=== PATIENT | male | born 1950 | race Caucasian/White ===

== ENCOUNTER 2018-05-19 20:08 | Inpatient (IN) | payer OTHER, MEDICARE ==
[~2018-05-19] VITALS: Ht 185.4 cm; Wt 92.3 kg
[~2018-05-19 20:08] MED LIST: ALPHA LIPOIC A200 MG PO; AMBIEN 10MG10 MG PO; AMLODIPINE BESYL5 M1 PO; ASPIRIN EC81 M1 PO; ATORVASTATIN CA20 MG PO; CO Q-1050 MG PO; FUROSEMIDE20 MG PO; GLYBURIDE-METF1 EACH PO; LOVAZA1 GM PO; MUCUS RELIEF400 MG PO; PRISTIQ100 MG PO; PROAIR HFA0.09 MG/Ac INH; QUINAPRIL HCL20 MG PO; SYMBICORT 160/41 PUF INH; TRILIPIX 135 M135 MG PO; VITAMIN D50000 IU PO; ZYPREXA10 MG PO; [UNRECOGNIZED DRUG - OTHER] PO; [UNRECOGNIZED DRUG - OTHER] PO
--- NOTE | 2018-05-19 20:31 | ED SKIN/ALLERGY COMPLAINT ---
History of Present Illness General Chief Complaint: General Adult Stated Complaint: "BOTH FEET HAVE INFECTIONS" Source: patient, family, old records Exam Limitations: intoxication Vital Signs & Intake/Output Vital Signs & Intake/Output Vital Signs Date Time Temp Pulse Resp B/P B/P Pulse O2 O2 Flow FiO2 Mean Ox Delivery Rate 05/19 2225 98.1 86 17 139/91 97 Room Air 05/19 2047 97.9 74 18 143/78 97 Room Air Allergies Coded Allergies: STATINS (MYALGIAS 08/21/17) melatonin (NIGHTMARES 08/21/17) varenicline (From CHANTIX) (NIGHTMARES 08/21/17) Reconcile Medications Amlodipine (Norvasc) 2.5 MG TABLET 1 TAB PO DAILY BP (Reported) Aspirin (Ecotrin*) 81 MG TABLET.DR 1 TAB PO DAILY HEART HEALTH (Reported) Glyburide/Metformin HCl (Glyburide-Metformin 5-500 MG) 5 MG-500 MG TABLET 1 TAB PO BID DM (Reported) Olmesartan Medoxomil (Benicar) (Unknown Strength) TABLET (Unknown Dose) PO DAILY BP (Reported) Triage Note: 67M WITH BILATERAL CELLULITIS TO FEET R>L WITH SEROSANGUINOUS DRAINAGE. WAS ON KEFLEX 500MG QID FOR 10 DAYS AND STATES THE INFECTION IS WORSENING. WAS TREATED AT [facility]. AFEBRILE. Triage Nurses Notes Reviewed? yes Onset: Gradual Duration: getting worse Timing: recent history Severity: moderate Severity Numbers: 5 HPI: Patient is a 67-year-old male with a past medical history of type 2 diabetes, schizoaffective disorder, history of Suboxone therapy after opiate dependency, COPD, and respiratory failure due to benzodiazepine overdose in which he has unknown history of bilateral foot open ulcers where he was evaluated last week by [facility] emergency room was prescribed Keflex where he presents to [place] emergency room stating that his redness and warmth have not improved. Patient denies any fever chills. Patient does admit to drinking ALCOHOL prior to arrival (Nino Martin) Past History Travel History Traveled to [place] past 21 day No Medical History Any Pertinent Medical History? see below for history Neurological: NONE EENT: NONE Cardiovascular: hypertension Respiratory: COPD, obstructive sleep apnea Gastrointestinal: NONE Hepatic: NONE Renal: renal mass Musculoskeletal: NONE Psychiatric: bipolar disease, depression, schizophrenia Endocrine: diabetes Cancer(s): ?MASS IN R KIDNEY History of MRSA: No History of VRE: No History of CDIFF: No Surgical History Surgical History: non-contributory Psychosocial History Who do you live with Patient/Self Services at Home None What is your primary language Slovenian Tobacco Use: Current Daily Use Daily Tobacco Use Amount/Type: Smokeless tobacco daily ETOH Use: alcoholic Illicit Drug Use: denies illicit drug use Family History Family History, If Any: GRANDFATHER FH: colon cancer Hx Contributory? No (Nino Martin) Review of Systems Review of Systems Constitutional: Reports: no symptoms. EENTM: Reports: no symptoms. Respiratory: Reports: no symptoms. Cardiovascular: Reports: no symptoms. GI: Reports: no symptoms. Genitourinary: Reports: no symptoms. Musculoskeletal: Reports: see HPI. Skin: Reports: see HPI. Neurological/Psychological: Reports: no symptoms. Hematologic/Endocrine: Reports: no symptoms. Immunologic/Allergic: Reports: no symptoms. All Other Systems: Reviewed and Negative (Nino Martin) Physical Exam Physical Exam General Appearance: no apparent distress, intoxicated Head: atraumatic Eyes: Bilateral: normal appearance. Ears, Nose, Throat: hearing grossly normal Neck: normal inspection Respiratory: no respiratory distress Cardiovascular: regular rate/rhythm Gastrointestinal: normal bowel sounds, non-tender Neurologic/Psych: no motor/sensory deficits, oriented x 3 Comments: Noted plantar aspect of the lateral FEET near the metatarsal phalangeal region bilateral 7 cm open ulcer with surrounding erythema warmth No active purulent discharge Decreased dermatome sensation Pedal pulses +2 (Nino Martin) Progress Differential Diagnosis: abscess/cellulitis, contact dermatitis, drug reaction Plan of Care: Orders Procedure Date/time Status LACTIC ACID 05/19 2357 Active ETHANOL 05/19 2105 Complete EKG 05/19 2058 Active BLOOD CULTURE 05/19 2057 Active LACTIC ACID 05/19 2057 Complete COMPREHENSIVE METABOLIC PANEL 05/19 2057 Complete CBC WITHOUT DIFFERENTIAL 05/19 2057 Complete Laboratory Tests 05/19/182104: Anion Gap 17 H, Estimated GFR > 60, BUN/Creatinine Ratio 10.0, Glucose 154 H, Lactic Acid 2.4 H, Calcium 9.6, Total Bilirubin 0.5, AST 17, ALT 28, Alkaline Phosphatase 86, Total Protein 7.8, Albumin 4.6, Globulin 3.2, Albumin/Globulin Ratio 1.4, CBC w Diff NO MAN DIFF REQ, RBC 4.09 L, MCV 93.2, MCH 30.3, MCHC 32.6 L, RDW 13.5, MPV 7.5, Gran % 70.2, Lymphocytes % 22.8, Monocytes % 5.3, Eosinophils % 1.4, Basophils % 0.3, Absolute Granulocytes 6.4, Absolute Lymphocytes 2.1, Absolute Monocytes 0.5, Absolute Eosinophils 0.1, Absolute Basophils 0, Serum Alcohol 200.0 05/19/182058: Serum Alcohol Cancelled Microbiology 05/19 2117 BLOOD: Blood Culture - RECD 05/19 2105 BLOOD: Blood Culture - RECD Differential diagnoses include Diabetic foot sepsis osteomyelitis and peripheral neuropathy No concerns of sepsis or osteomyelitis patient has failed outpatient treatment with Keflex prior to arrival patient has concerning symptoms of diabetic open ulcer of his feet with surrounding cellulitis IV antibiotics were administered Discussed admission with patient patient was also aware of his alcohol level Diagnostic Imaging: Viewed by Me: Radiology Read. Radiology Impression: no acute abnormality Initial ED EKG: normal intervals, normal p-waves, 77 bpm,nsr Comments: PATIENT: BUD HUNT PRESENT AGE: 67 PATIENT ACCOUNT NO: [id number] : 51 LOCATION: [facility] ORDERING PHYSICIAN: Nino REYES SERVICE DATE: 05/19/18 EXAM TYPE: RAD - XRY-FOOT COMPLETE, LEFT; XRY-FOOT COMPLETE, R EXAMINATION: BILATERAL FEET 3 VIEWS CLINICAL INFORMATION: Open ulcer. Concern for osteomyelitis. COMPARISON: None. TECHNIQUE: AP, lateral, oblique views of each foot were obtained. FINDINGS: There are no fractures. There is moderate degenerative change at the first MTP joints bilaterally. There is soft tissue swelling overlying the left fifth MCP joint. There is no significant soft tissue swelling. There is a small left-sided plantar surface calcaneal spur. There is no ankle joint effusion. There are no areas of acute bony destruction suspected. IMPRESSION: No acute bony destruction demonstrable. Soft tissue swelling about the fifth digit on the left as stated above. Chronic changes as stated above. DICTATED BY: Justin Kiser MD DATE/TIME DICTATED:05/19/182148 INSTRUMENTATION TECHNICIAN:SALOMON DATE/TIME TRANSCRIBED:05/19/182148 CONFIDENTIAL, DO NOT COPY WITHOUT APPROPRIATE AUTHORIZATION. <Electronically signed in Other Vendor System> SIGNED BY: Justin Kiser MD 05/19/182157 (Nino Martin) Departure Departure Disposition: STILL A PATIENT Condition: Stable Clinical Impression Primary Impression: Cellulitis of both feet Secondary Impressions: Alcohol abuse, Neuropathic diabetic ulcer of foot Referrals: Missy JOHNSON,Mildred Waite (PCP/Family) Departure Forms: Customer Survey General Discharge Information Admission Note Spoke With: Kyle Liz MD Documentation of Exam: Documentation of any treatments & extenuating circumstances including Concerns Regarding Discharge (functional status, medication knowledge or non-compliance, living conditions, etc.) that warrant an admission rather than observation: [ Patient has fell outpatient treatment with Keflex prior to arrival and has concerns of worsening cellulitis, patient requires wound management IV antibiotics podiatry consultation] (Nino Martin) PA/ASSISTANT GOLF COURSE SUPERINTENDENT Co-Sign Statement Statement: ED Attending supervision documentation- [X] I saw and evaluated the patient. I have also reviewed all the pertinent lab results and diagnostic results. I agree with the findings and the plan of care as documented in the PA's/ASSISTANT GOLF COURSE SUPERINTENDENT's documentation. Pt presents for eval of redness of foot. exam reveals redness and warmth in association with diabetic foot ulcers. [] I have reviewed the ED Record and agree with the PA's/ASSISTANT GOLF COURSE SUPERINTENDENT's documentation. [] Additions or exceptions (if any) to the PAs/ASSISTANT GOLF COURSE SUPERINTENDENT's note and plan are summarized below: [] (Tahira JOHNSON,Sam Herman)
[2018-05-19 21:27] LABS: ABSOLUTE BASOPHIL COUNT 0 /CUMM (0.0-0.2); ABSOLUTE EOSINOPHIL COUNT 0.1 /CUMM (0.0-0.7); ABSOLUTE GRANULOCYTE CT 6.4 /CUMM (1.4-6.5); ABSOLUTE LYMPH COUNT 2.1 /CUMM (1.2-3.4); ABSOLUTE MONOCYTE COUNT 0.5 /CUMM (0.10-0.60); BASOPHIL % 0.3 % (0.0-2.0); EOSINOPHIL % 1.4 % (0-5); GRANULOCYTE % 70.2 % (42.2-75.2); HEMATOCRIT 38.1 % (42-52); MEAN CORPUSCULAR HGB 30.3 PG (27.0-31.0); MEAN CORPUSCULAR HGB CONC 32.6 G/DL (33.0-37.0); MEAN CORPUSCULAR VOLUME 93.2 FL (80.0-94.0); MEAN PLATELET VOLUME 7.5 FL (7.4-10.4); PLATELET COUNT 308 /CUMM (130-400); RBC DISTRIBUTION WIDTH 13.5 % (11.5-14.5); RED BLOOD CELL CT 4.09 /CUMM (4.70-6.10); WHITE BLOOD CELL COUNT 9.2 /CUMM (4.8-10.8)
[2018-05-19] MEDS ORDERED: NORVASC2.5 M1 PO (21:30)
[2018-05-19] MEDS ORDERED: BENICAR20 M1 PO (21:33)
--- NOTE | 2018-05-19 21:58 | RADIOLOGY REPORT ---
EXAMINATION: BILATERAL FEET 3 VIEWS CLINICAL INFORMATION: Open ulcer. Concern for osteomyelitis. COMPARISON: None. TECHNIQUE: AP, lateral, oblique views of each foot were obtained. FINDINGS: There are no fractures. There is moderate degenerative change at the first MTP joints bilaterally. There is soft tissue swelling overlying the left fifth MCP joint. There is no significant soft tissue swelling. There is a small left-sided plantar surface calcaneal spur. There is no ankle joint effusion. There are no areas of acute bony destruction suspected. IMPRESSION: No acute bony destruction demonstrable. Soft tissue swelling about the fifth digit on the left as stated above. Chronic changes as stated above.
--- NOTE | 2018-05-19 23:42 | History & Physical ---
RanjithConsuelo 05/19/18 8191: General Information and HPI MD Statement: I have seen and personally examined BUD HUNT and documented this H&P. The patient is a 67 year old M who presented with a patient stated chief complaint of []. Source of Information: patient, old records Exam Limitations: intoxication History of Present Illness: 67 yo gentleman with PMH of type 2 DM, hypertension, schizoaffectiive disorder, opiate dependancy and benzodiazepine overdose presents to the ER with not worsening B/L foot ulcers. He noticed the blisters 10 days ago and went to [facility] ER [facility] where[facility] was prescribed Keflex for 10 days. He says that he completed the course but his ulcers, espcially on the right foot has worsened since. He says he does not feel any pain and is able to walk comfortably. He does not report any fever, chills, nausea or vomiting. He had an appointement with his PCP today who informed him that he had high potasium and low Iron. He failed to elaborate further on that. He admits to having had 3 beers in the afternoon today. He states he drinks 3-5 beer every week but has never been admitted to the hospital for alcohol dependance. He denies consuming hard liquor. He was essentially alert, oriented and cooperative during evaluation. Allergies/Medications Allergies: Coded Allergies: STATINS (MYALGIAS 08/21/17) melatonin (NIGHTMARES 08/21/17) varenicline (From CHANTIX) (NIGHTMARES 08/21/17) Home Med list Amlodipine (Norvasc) 2.5 MG TABLET 1 TAB PO DAILY BP (Reported) Aspirin (Ecotrin*) 81 MG TABLET.DR 1 TAB PO DAILY HEART HEALTH (Reported) Augmentin (Augmentin 500-125 Tablet) 500 MG-125 MG TABLET 1 TAB PO BID cellulitis . Glyburide/Metformin HCl (Glyburide-Metformin 5-500 MG) 5 MG-500 MG TABLET 1 TAB PO BID DM (Reported) Olmesartan Medoxomil (Benicar) (Unknown Strength) TABLET (Unknown Dose) PO DAILY BP (Reported) Silver Sulfadiazine (Silvadene) 1 % CREAM..G. 1 JEANINE TOP DAILY diabetes ulcer apply to affected area(s). Past History Travel History Traveled to [place] past 21 day No Medical History Neurological: NONE, peripheral neuropathy EENT: NONE Cardiovascular: hypertension Respiratory: COPD, obstructive sleep apnea Gastrointestinal: NONE Hepatic: NONE Renal: renal mass Musculoskeletal: NONE Psychiatric: bipolar disease, depression, schizophrenia Endocrine: diabetes Cancer(s): ?MASS IN R KIDNEY History of MRSA: No History of VRE: No History of CDIFF: No Surgical History Surgical History: non-contributory Past Family/Social History Family History Relations & Conditions if any GRANDFATHER FH: colon cancer Psychosocial History Services at Home: None Primary Language: Kyrgyz Smoking Status: Former Smoker (quit 3 years ago) ETOH Use: alcoholic Illicit Drug Use: denies illicit drug use Review of Systems Review of Systems Constitutional: Reports: no symptoms. Denies: chills, fever, malaise, unexplained weight loss. EENTM: Reports: no symptoms. Denies: double vision, visual changes, icterus. Cardiovascular: Reports: no symptoms. Denies: chest pain, palpitations. Respiratory: Reports: no symptoms. Denies: cough, short of breath, sputum production, wheezing. GI: Reports: no symptoms. Denies: abdominal pain, bloating, diarrhea, nausea, vomiting. Genitourinary: Reports: no symptoms. Musculoskeletal: Reports: no symptoms. Skin: Reports: see HPI. Neurological/Psychological: Reports: no symptoms, see HPI, numbness. Denies: anxiety, emotional problems, paresthesia, tingling. Hematologic/Endocrine: Reports: no symptoms. Denies: bruising, bleeding. Exam & Diagnostic Data Last 24 Hrs of Vital Signs/I&O Vital Signs Date Time Temp Pulse Resp B/P B/P Pulse O2 O2 Flow FiO2 Mean Ox Delivery Rate 05/19 2225 98.1 86 17 139/91 97 Room Air 05/19 2047 97.9 74 18 143/78 97 Room Air Intake & Output 05/20 0800 05/20 0000 05/19 1600 Intake Total Output Total Balance Patient 195 lb Weight Physical Exam General Appearance Oriented X3, Cooperative, No Acute Distress Skin bilateral plantar foot ulcers, 5 cm on the right foot; 8cm on the left foot with surrounding erythema and warmth but no purulent discharge Skin Temp/Moisture Exam: Warm/Dry Sepsis Skin Exam (color): Flushed HEENT Atraumatic, PERRLA, EOMI, Mucous Membr. moist/pink Neck Supple Cardiovascular Regular Rate, Normal S1, Normal S2, No Murmurs Lungs Clear to Auscultation, Normal Air Movement Abdomen Normal Bowel Sounds, Soft, No Tenderness Neurological Normal Speech, Strength at 5/5 X4 Ext, near complete loss of senasation B/L feet. proprioception intact Extremities Normal Pulses Vascular dorsalis pedis 1+ on the R side Assessment/Plan Assessment: Here is a 67 yo gentleman with PMH of type 2 DM, hypertension, schizoaffecttive disorder, opiate dependance and BZD overdose presenst to the ED with history of non healing B/L plantar ulcers. He visted [facility] ER 10 days ago and has completed a 10 day course of Keflex with no relief. He denies, pain, fever, chills, nausea or vomitng. He admits to drinking 3 beers at 3.30 in the afternoon today. On examination, he was fairly alert, orientedx3 and was cooperative. His face was flushed and he had B/L conjunctival injection. On examination of his foot, he had 2 ulcers: 5cm on the R foot and 8 cm on the left foot with surrrounding warmth and eryrthema but no purulent discharge. He had B/ L pitting pedal edema. His neurologicsl foot exam was remarkable for B/L loss of sensation in the plantar feet. Proprioception was intact, however. We are admittig the patient to on account of the following reasons: 1. B/L Diabetic foot ulcers - 5cm ulcer on the R plantar foot and 8 cm ulcer on the R foot -Start iv antibiotics - Consult wound care - 2. Alcohol dependance -Pt admits to consuming 3 beers before coming ot the ER -Has mild anion gap (17) lactic acidosis on labs, -will monitor lactic acid levels - Monitor for symptoms of alcohol withdrawal 3. Type 2 DM with peripheral neuropathy -Blood glucose on admission 154 - will closely monitor blood sugar levels with Accucheck - Start insulin -Put the patient on diabetic diet DVT prophlylaxis code status: DNR/DNI As Ranked By This Provider Problem List: 1. Diabetes mellitus 2. Hypertension 3. Neuropathic diabetic ulcer of foot Core Measures/Misc (07/19) Acute Coronary Syndrome ACS Diagnosis: No Congestive Heart Failure Congestive Heart Failure Diagnosis No Cerebrovascular Accident CVA/TIA Diagnosis: No VTE (View Protocol) VTE Risk Factors Age>40 No Mechanical VTE Prophylaxis d/t N/A MechProphylax Ordered No VTE Pharm Prophylaxis d/t NA PharmProphylax ordered Sepsis (View protocol) Sepsis Present: No If YES complete Sepsis Event Note If YES complete Sepsis Event Note Roz Moreno 05/20/18 0008: Core Measures/Misc (07/19) Sepsis (View protocol) If YES complete Sepsis Event Note If YES complete Sepsis Event Note Resident Review Statement Resident Statement: examined this patient, discussed with internal combustion engine inspector, agreed with internal combustion engine inspector, reviewed images Other Findings: 67-year-old gentleman from home, former smoker, past medical history significant for [id number] type 2 diabetes mellitus complicated by peripheral neuropathy, schizoaffective disorder, history of substance abuse disorder, hypertension, came in because his PCP advised him to. Apparently he had bilateral foot ulcers that was seen at [facility] last week and was given a 10 day course of Keflex which he completed. However his ulcers have not improved. He also states that he drinks about 3-5 beers per week his last drink was 3:30 PM on day of admission. Denies that he had needed any hospitalization for detox in the past denies any IV drug use. On interview denies fever, chills , shortness of breath, chest pain, bowel or bladder symptoms. Vitals in ED were stable on examination bilateral conjunctival injection, decreased sensation to light touch up to above ankles bilaterally. Bilateral ulcers on plantar aspect of feet. right ulcer worse than left. Healthy granulation tissue noted with rolled edges no purulent discharge. Right dorsalis pedis fainter than left. Bilateral mild pitting edema up to merino. Rest of examination unremarkable. Labs CBC/BEP unremarkable, lactic acid elevated 2.4, alcohol level of 200, urine tox pending. X-ray foot shows soft tissue swelling. Problem list Bilateral chronic nonhealing ulcers failed outpatient treatment Gwx-[id number] diabetes mellitus with peripheral neuropathy Elevated alcohol level lactic acidosis Hypertension Plan Admit to general medicine floor, vitals per protocol We will continue with IV Unasyn, might need vascular imput (decrease left dorsalis pedis pulse) Trend lactic acid Wound consult in the morning We will hold his metformin, Accu-Cheks, insulin sliding scale, follow-up hemoglobin A1c We will place on Ciwa protocol Continue with Norvasc and alternative for his olmesartan (losartan) Diabetic diet DVT prophylaxis subcu Lovenox DNR/DNI Shalonda JOHNSONSuzannekelle 05/20/18 0205: Core Measures/Misc (07/19) Sepsis (View protocol) If YES complete Sepsis Event Note If YES complete Sepsis Event Note Attending MD Review Statement Attending Statement Attending MD Statement: examined this patient, discuss w/resident/PA/JACQUARD TWINE POLISHER OPERATOR, agreed w/resident/PA/JACQUARD TWINE POLISHER OPERATOR, reviewed EMR data (avail) Attending Assessment/Plan: 67M PMH schizoaffective disorder, COPD, diabetes with diabetic polyneuropathy sent in from PCP's office for worsening of bilateral foot and LE chronic non- healing ulcers. Patient has developed erythema and warmth surrounding the ulcers around 10 days ago, was placed on Cephalex with worsening of symptoms. Patient has diminished sensation to bilateral LE, multiple chronic non-healing ulcers with some surrounding erythema, no purulence or drainage. No fever, chills, n/v, WBC normal. Lactate 2.4. Patient was visibly intoxicated in ER, EtOH level 200. 1. Bilateral LE cellulitis 2. Type 2 diabetic foot ulcers 3. Diabetic polyneuropathy 4. Failure of outpatient treatment 5. Lactic acidosis 6. Alcohol intoxication Plan - Admit to general medicine - Start Unasyn - Wound care consult - IV hydration - Trend lactate to normal - Ativan PRN CIWA - Continue home medications - DVT PPx
--- NOTE | 2018-05-20 00:39 | Admission Certification ---
Admission Certification Certification Statement - As attending physician, I certify that at the time of - admission, based on clinical presentation, severity of - symptoms, need for further diagnostic testing and - therapeutic interventions, and risk of adverse outcomes - without in-hospital treatment, in my clinical assessment, - this patient requires an acute hospital stay for a minimum - of two nights or longer. I have also considered psychsocial - factors such as support system, advanced age, financial - issues, cognitive issues, and failed out-patient treatments, - past re-admission history, safety of patient, and lack of - compliance as applicable. Specific rationale supporting this admission is: LE ulcers with cellulitis failing outpatient therapy
[2018-05-20 01:04] VITALS: BP 120/62
[2018-05-20 06:00] VITALS: BP 156/91
--- NOTE | 2018-05-20 07:13 | PN- Housestaff ---
Samuel Billy 05/20/18 07: Subjective Follow-up For: B/l lower extremity ulcers / cellulitis Subjective: She is seen and examined at bedside, while wound nurse was performing excisional debridement. Patient states that he has not had any pain on his ulcers, however the right one has grown and that is what prompted him to seek treatment in the hospital. Patient was recently at [facility] 1 week prior, completed Keflex course without resolution. Patient denies any overt complaints. Patient continually asked when he will be discharged, and says that he feels fine. Patient denies fever/chills/night sweats/chest pain/abdominal pain/urinary symptoms/lower extremity edema. Review of Systems Constitutional: Reports: see HPI. Objective Last 24 Hrs of Vital Signs/I&O Vital Signs Date Time Temp Pulse Resp B/P B/P Pulse O2 O2 Flow FiO2 Mean Ox Delivery Rate 05/20 08 75 156/91 05/20 0820 75 156/91 05/20 0600 98.4 75 20 156/91 98 Room Air 05/20 0104 98.0 78 18 120/62 92 Room Air 05/19 2225 98.1 86 17 139/91 97 Room Air 05/19 2047 97.9 74 18 143/78 97 Room Air Intake & Output 05/20 1600 05/20 0800 05/20 0000 Intake Total 300 Output Total Balance 300 Intake, IV 60 Intake, Oral 240 Patient 203 lb 195 lb Weight Weight Bed scale Measurement Method Physical Exam General Appearance: Alert, Oriented X3, Cooperative, No Acute Distress Skin: b/l lower extremity ulcers plantar surface R>L R: 5.2 x 7.2 x 0.1 ; L: 3.2 x 2.9 x 0.1 Skin Temp/Moisture Exam: Warm/Dry Cardiovascular: Regular Rate, Normal S1, Normal S2 Lungs: Clear to Auscultation, Normal Air Movement Abdomen: Soft, No Tenderness Neurological: Normal Speech, Strength at 5/5 X4 Ext Extremities: No Edema Current Medications: Current Medications Sig/Satnam Start time Last Medication Dose Route Stop Time Status Admin Acetaminophen 650 MG Q6P PRN 05/20 0300 AC 05/20 PO 1246 Amlodipine Besylate 2.5 MG DAILY 05/20 0900 AC 05/20 PO 0820 Ampicillin Sodium/ 1,500 MG Q6H 05/27 0530 DC Sulbactam Sodium IV Sodium Chloride 100 ML Ampicillin Sodium/ 1,500 MG Q6H 05/20 0530 AC 05/20 Sulbactam Sodium IV 1246 Sodium Chloride 100 ML Ampicillin Sodium/ 0 .STK-MED ONE 05/19 2220 DC Sulbactam Sodium .ROUTE Ampicillin Sodium/ 0 .STK-MED ONE 05/19 2217 DC Sulbactam Sodium .ROUTE Ampicillin Sodium/ 1,500 MG ONCE ONE 05/19 2200 DC 05/19 Sulbactam Sodium IV 05/19 2229 2233 Sodium Chloride 100 ML Aspirin Buffered 81 MG DAILY 05/20 09 AC 05/20 PO 0820 Enoxaparin Sodium 40 MG DAILY 05/20 09 AC 05/20 SC 0819 Ibuprofen 400 MG .STK-MED ONE 05/20 0530 DC PO 05/20 0531 Ibuprofen 800 MG .STK-MED ONE 05/20 0525 DC PO 05/20 0526 Ibuprofen 800 MG ONCE ONE 05/20 0500 DC 05/20 PO 05/20 0501 0529 Insulin Aspart 0 TIDAC 05/20 08 05/20 SC 1246 Lorazepam 0 Q1P PRN 05/19 2345 AC IV Losartan Potassium 50 MG DAILY 05/20 09 AC 05/20 PO 0820 Sodium Chloride 1,000 ML BOLUS ONE 05/19 2300 DC 05/19 IV 05/19 2359 2319 Last 24 Hrs of Lab/Luis Miguel Results Last 24 Hrs of Labs/Mics: Laboratory Tests 05/20/18 0704: Lactic Acid 1.2 05/20/18 0016: Lactic Acid 2.2 H 05/19/18 2105: Anion Gap 17 H, Estimated GFR > 60, BUN/Creatinine Ratio 10.0, Glucose 154 H, Hemoglobin A1c 5.9 H, Lactic Acid 2.4 H, Calcium 9.6, Total Bilirubin 0.5, AST 17, ALT 28, Alkaline Phosphatase 86, Total Protein 7.8, Albumin 4.6, Globulin 3.2, Albumin/Globulin Ratio 1.4, CBC w Diff NO MAN DIFF REQ, RBC 4.09 L, MCV 93.2, MCH 30.3, MCHC 32.6 L, RDW 13.5, MPV 7.5, Gran % 70.2, Lymphocytes % 22.8 , Monocytes % 5.3, Eosinophils % 1.4, Basophils % 0.3, Absolute Granulocytes 6.4 , Absolute Lymphocytes 2.1, Absolute Monocytes 0.5, Absolute Eosinophils 0.1, Absolute Basophils 0, Serum Alcohol 200.0 05/19/182058: Serum Alcohol Cancelled Microbiology 05/19 2117 BLOOD: Blood Culture - RES 05/19 2105 BLOOD: Blood Culture - RES Assessment/Plan Assessment: 67M PMH schizoaffective disorder, COPD, diabetes with diabetic polyneuropathy sent in from PCP's office for worsening of bilateral foot and LE chronic non- healing ulcers. Patient has developed erythema and warmth surrounding the ulcers around 10 days ago, was placed on Keflex with worsening of symptoms. Pt being treated for b/l lower extremity cellulitis #B/L LE Cellulitis -On IV Unasyn, recieved one dose in the ED on 05/19, two doses today on May 20 at time of writing -Failed outpatient treatment from [facility] -Pt not complaining of pain at this time, will monitor clinical course -Without leukocytosis -F/u cultures #Type 2 Diabetic foot ulcers -Wound input appreciated. Watched wound nurse perform bedside debridement this morning on 05/20; please refer to note for further details. -Per wound note: CLEANSE LEN FEET WITH NS FB XEROFORM GAUZE AND KERLIX DAILY AND PRN - OFFLOADING AND ENCOURAGE MINIMAL WEIGHT BEARING PLEASE WITH HEEL TOUCH ONLY - PT WOULD BENEFIT FROM TOTAL CONTACT CASTING SYSTEM [facility] TO FACILITATE CLOSURE AN OUTPT -Podiatry consult #Lactic Acidosis - resolved -Lactate normalized, last was 1.2, down from 2.2 last night #Alcohol Intoxication -Patients alcohol level overnight was 200.0. Is on CIWA protocol PRN #COPD -Not on oxygen, stable #Diabetes -Has polyneuropathy -ISS -Accuchecks DVT PPX IV access DNR/DNI Heart healthy diet Problem List: 1. Diabetic neuropathy 2. Cellulitis of both feet Pain Ratin Pain Location: na Pain Goal: Pain 4 or less Pain Plan: [facility] Labs & Rationales: chaya KumarMeng 05/20/18 1115: Attending MD Review Statement Attending Statement Attending MD Statement: examined this patient, discuss w/resident/PA/TIRE MAN, agreed w/resident/PA/TIRE MAN, discussed with family, reviewed EMR data (avail), discussed with nursing, discussed with case mgmt, reviewed images, amended to note Attending Assessment/Plan: 67M PMH schizoaffective disorder, COPD, diabetes with diabetic polyneuropathy sent in from PCP's office for worsening of bilateral foot and LE chronic non- healing ulcers failed outpatient treatment. Patient found to have alcohol intoxciation DAISY 200 on admission. 1. Bilateral LE cellulitis c/w Unasyn, Wound care consulted and obtain podiatry consult. Follow up cultures. 2. Type 2 diabetic foot ulcers chronic non healing. 3. Diabetic uncontrolled with polyneuropathy 4. Alcohol intoxication CIWA and ativan prn, monitor for withdrawal. 5. COPD stable.
[2018-05-20 14:36] VITALS: BP 150/82
[2018-05-20 16:00] VITALS: BP 150/82
[2018-05-20 22:26] VITALS: BP 152/90
--- NOTE | 2018-05-21 07:13 | PN- Housestaff ---
See Addendum Subjective Follow-up For: B/L Diabetic Foot Ulcers, cellulitis Subjective: Patient seen and examined at bedside. Patient had no complaints overnight. States that he did not sleep too well. Patient was advised that he needs to keep off of his feet, heel touch weightbearing. Patient was also advised that he needs to see animation producer, potentially today. Patient did continue to ask about when he would be discharged. Patient denies fever/chills/night sweats/ chest pain/abdominal pain/urinary symptoms/lower extremity edema. No acute events overnight Review of Systems Constitutional: Reports: see HPI. Objective Last 24 Hrs of Vital Signs/I&O Vital Signs Date Time Temp Pulse Resp B/P B/P Pulse O2 O2 Flow FiO2 Mean Ox Delivery Rate 05/21 0715 97.1 60 20 140/84 94 05/20 2226 98.3 71 20 152/90 98 Room Air 05/20 1600 Room Air 05/20 1600 98.7 69 20 150/82 05/20 1436 98.7 69 20 150/82 96 Room Air Intake & Output 05/21 1600 05/21 0800 05/21 0000 Intake Total 200 640 Output Total Balance 200 640 Intake, IV 100 140 Intake, Oral 100 500 Physical Exam General Appearance: Alert, Oriented X3, Cooperative, No Acute Distress Skin: b/l diabetic foot ulcers, R dressing mild drainage noted, L dressing c/d/i Skin Temp/Moisture Exam: Warm/Dry Cardiovascular: Regular Rate, Normal S1, Normal S2 Lungs: Clear to Auscultation, Normal Air Movement Abdomen: Soft, No Tenderness Neurological: Normal Speech, Strength at 5/5 X4 Ext, diminished sensation b/l le 2/2 neuropathy Extremities: b/l diabetic foot ulcers; R ulcer clean skin margins small drainage , skin pink; L ulcer stable from admission, no drainage Current Medications: Current Medications Sig/Satnam Start time Last Medication Dose Route Stop Time Status Admin Acetaminophen 650 MG Q6P PRN 05/20 0300 AC 05/21 PO 0526 Amlodipine Besylate 2.5 MG DAILY 05/20 900 AC 05/20 PO 08 Ampicillin Sodium/ 1,500 MG Q6H 05/20 0530 AC 05/21 Sulbactam Sodium IV 0513 Sodium Chloride 100 ML Aspirin Buffered 81 MG DAILY 05/20 900 AC 05/20 PO 0820 Enoxaparin Sodium 40 MG DAILY 05/20 0900 AC 05/20 SC 0819 Insulin Aspart 0 TIDAC 05/20 0800 AC 05/20 SC 1759 Lorazepam 0 Q1P PRN 05/19 2345 AC IV Losartan Potassium 50 MG DAILY 05/20 0900 AC 05/20 PO 0820 Patient Medication 1 ED ONE ONE 05/20 1800 DC Teaching ED 05/20 1801 Assessment/Plan Assessment: 67M PMH schizoaffective disorder, COPD, diabetes with diabetic polyneuropathy sent in from PCP's office for worsening of bilateral foot and LE chronic non- healing ulcers. Patient has developed erythema and warmth surrounding the ulcers around 10 days ago, was placed on Keflex with worsening of symptoms. Pt being treated for b/l lower extremity cellulitis #B/L LE Cellulitis - resolving -On IV Unasyn, day 3; will switch to PO meds upon discharge -Failed outpatient treatment from [facility] -Pt not complaining of pain at this time, will monitor clinical course -Without leukocytosis -F/u cultures #Type 2 Diabetic foot ulcers -Wound input appreciated. Watched wound nurse perform bedside debridement this morning on 05/20; please refer to note for further details. -Per wound note: CLEANSE LEN FEET WITH NS FB XEROFORM GAUZE AND KERLIX DAILY AND PRN - OFFLOADING AND ENCOURAGE MINIMAL WEIGHT BEARING PLEASE WITH HEEL TOUCH ONLY - PT WOULD BENEFIT FROM TOTAL CONTACT [facility] TO FACILITATE CLOSURE AN OUTPT -Podiatry consult - will see patient today. If casting today will keep overnight pending reccs. If can cast outpatient will discharge today -R foot ulcer small amount of drainage; has not progressed. Margins clean, skin pink, no necrosis noted. L foot ulcer stable, no drainage noted. #Lactic Acidosis - resolved -Lactate normalized, last was 1.2, down from 2.2 last night #Alcohol Intoxication -Patients alcohol level overnight was 200.0. Is on CIWA protocol PRN. Scores overnight 0 #COPD -Not on oxygen, stable #Diabetes -Has polyneuropathy -ISS -Accuchecks DVT PPX IV access DNR/DNI Heart healthy diet Dispo - to home, potentially today pending podiatry consult Problem List: 1. Diabetic neuropathy 2. Cellulitis of both feet 3. Neuropathic diabetic ulcer of foot Pain Ratin Pain Location: na Pain Goal: Pain 4 or less Pain Plan: [facility] Labs & Rationales: na
[2018-05-21 07:15] VITALS: BP 140/84
[2018-05-21] MEDS ORDERED: AUGMENTIN 500-1 EACH PO ×3 (11:27→15:09)
--- NOTE | 2018-05-21 11:33 | Patient Discharge Instructions ---
Discharge Instructions General Discharge Information You were seen/treated for: Diabetic Foot Ulcers//Cellulitis You had these procedures: Bedside Debridement Other wound care: CLEANSE LEN FEET WITH NS FB XEROFORM GAUZE AND KERLIX DAILY AND PRN - OFFLOADING AND ENCOURAGE MINIMAL WEIGHT BEARING PLEASE WITH HEEL TOUCH ONLY Special Instructions: - Please follow up with your calender supervisor within 1-2 weeks of discharge. - Please follow up with your primary care physician within 1-2 weeks of discharge. Inform your primary care physician of this admission to [facility]. - Continue your current medications per discharge instructions. - Please watch for these problems: Fever, Chills, Nausea, Vomiting, Shortness of Breath, Productive Cough, Chest Pain/Discomfort, Abdominal Pain, Active Bleeding or Bloody urine/stool. Diet Continue normal diet: Yes Recommended Diet: Diabetic Activity Full Activity/No Limits: No (heel touch weight bearing) Activity Self Limited: Yes Acute Coronary Syndrome Inclusion Criteria At DC or during hospital stay patient has or had the following: ACS DIAGNOSIS No Discharge Core Measures Meds if any: Prescribed or Continued at Discharge Meds if any: NOT Prescribed or Continued at Discharge Congestive Heart Failure Inclusion Criteria At DC or during hospital stay patient has or had the following: CHF DIAGNOSIS No Discharge Core Measures Meds if any: Prescribed or Continued at Discharge Meds if any: NOT Prescribed or Continued at Discharge Cerebrovascular accident Inclusion Criteria At DC or during hospital stay patient has or had the following: CVA/TIA Diagnosis No Discharge Core Measures Meds if any: Prescribed or Continued at Discharge Meds if any: NOT Prescribed or Continued at Discharge Venous thromboembolism Inclusion Criteria VTE Diagnosis No VTE Type NONE VTE Confirmed by (Test) NONE Discharge Core Measures - Per Current guidelines, there needs to be overlap - treatment for the first 5 days of Warfarin therapy. - If discharged on Warfarin prior to 5 days of - overlap therapy, the patient will need to be - assessed for post discharge needs including - *Post discharge parental anticoagulation - *Warfarin and/or parental anticoagulation education - *Follow up date to check INR post discharge At least 5 days overlap therapy as Inpatient No Meds if any: Prescribed or Continued at Discharge Note: Overlap Therapy is Warfarin and Anticoagulant Meds if any: NOT Prescribed or Continued at Discharge
--- NOTE | 2018-05-21 12:50 | Cons- Podiatry ---
General Information and HPI Consulting Request Date of Consult: 05/21/18 Requested By: Meng Kumar MD Reason for Consult: Superficial jernigan, bilateral feet Source of Information: patient Exam Limitations: no limitations History of Present Illness: This is a 67-year-old type II diabetic male with a history of substance abuse and a psychiatric history of schizoaffective disorder who is seen and evaluated at bedside today for consultation on superficial wounds bilaterally on the plantar forefoot. The patient was admitted on Thursday for right lower extremity cellulitis, was x-rayed, and found to be clinically and radiographically negative for osteomyelitis prior to consultation. The patient reports that these lesions have been present for approximately 2 weeks, and prior to admission were worsening and deepening. He reports no prior history of skin ulceration. He reports that he is well controlled, with his diabetic control managed by his primary care provider with oral medication. He reports being a former smoker quit about 3 years ago. He reports prior to admission that he had walked barefoot on concrete outdoors and believes this is where the lesions came from. Allergies/Medications Allergies: Coded Allergies: STATINS (MYALGIAS 08/21/17) melatonin (NIGHTMARES 08/21/17) varenicline (From CHANTIX) (NIGHTMARES 08/21/17) Home Med List: Amlodipine (Norvasc) 2.5 MG TABLET 1 TAB PO DAILY BP (Reported) Aspirin (Ecotrin*) 81 MG TABLET.DR 1 TAB PO DAILY HEART HEALTH (Reported) Augmentin (Augmentin 500-125 Tablet) 500 MG-125 MG TABLET 1 TAB PO BID cellulitis Glyburide/Metformin HCl (Glyburide-Metformin 5-500 MG) 5 MG-500 MG TABLET 1 TAB PO BID DM (Reported) Olmesartan Medoxomil (Benicar) (Unknown Strength) TABLET (Unknown Dose) PO DAILY BP (Reported) Current Medications: Current Medications Sig/Satnam Start time Last Medication Dose Route Stop Time Status Admin Acetaminophen 650 MG Q6P PRN 05/20 0300 AC 05/21 PO 0526 Amlodipine Besylate 2.5 MG DAILY 05/20 09 AC 05/21 PO 0841 Ampicillin Sodium/ 1,500 MG Q6H 05/20 0530 AC 05/21 Sulbactam Sodium IV 0513 Sodium Chloride 100 ML Aspirin Buffered 81 MG DAILY 05/20 900 AC 05/21 PO 0841 Enoxaparin Sodium 40 MG DAILY 05/20 09 AC 05/21 SC 0841 Insulin Aspart 0 TIDAC 05/20 08 AC 05/21 SC 0841 Lorazepam 0 Q1P PRN 05/19 2345 AC IV Losartan Potassium 50 MG DAILY 05/20 900 AC 05/21 PO 0841 Patient Medication 1 ED ONE ONE 05/20 1800 DC Teaching ED 05/20 180 Past History Medical History Blood Transfusion Hx: No Neurological: NONE, peripheral neuropathy EENT: NONE Cardiovascular: hypertension Respiratory: COPD, obstructive sleep apnea, pneumonia Gastrointestinal: NONE Hepatic: NONE Renal: renal mass Musculoskeletal: NONE Psychiatric: bipolar disease, depression, schizophrenia Endocrine: diabetes 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 Exam & Diagnostic Data Vital Signs and I&O Vital Signs Date Time Temp Pulse Resp B/P B/P Pulse O2 O2 Flow FiO2 Mean Ox Delivery Rate 05/21 0715 97.1 60 20 140/84 94 05/20 2226 98.3 71 20 152/90 98 Room Air 05/20 1600 Room Air 05/20 1600 98.7 69 20 150/82 05/20 1436 98.7 69 20 150/82 96 Room Air Intake & Output 05/21 1600 05/21 0800 05/21 0000 05/20 1600 05/20 0800 05/20 0000 Intake Total 075 583 6027 300 Output Total Balance 223 955 3544 300 Intake, IV 100 140 120 60 Intake, Oral 964 447 0540 240 Number 0 Bowel Movements Patient 203 lb 195 lb Weight Weight Bed scale Measurement Method Physical Exam: The patient is palpable pedal pulses, dorsalis pedis and posterior tibial pulses are 2 out of 4 bilaterally. The patient has a normal temperature gradient warm to cool proximal to distal in both lower extremities. He has a normal capillary refill time of 3 seconds in all 10 toes. The patient has grossly diminished sensation in the forefoot and midfoot equal and bilateral on proprioceptive and light touch examinations. The patient has no edema, no erythema, no maceration. On the plantar surfaces of the forefoot bilaterally, there are superficial burn lesions with exposed dermis measuring 4 cm x 2 and half centimeters on the right foot and to synovators by 1.5 cm on the left foot. Neither of these lesions clinically show any deep involvement or drainage. The patient exhibits 5 out of 5 muscle power in all lower extremity compartments, and ambulates around his hospital room without incident. Imaging Results: X-rays taken on the date of admission exhibit no radiographic evidence of acute osteomyelitis Assessment/Plan Assessment/Plan 67-year-old diabetic male with peripheral neuropathy and superficial jernigan of the plantar forefoot bilaterally which exhibited no clinical or radiographic evidence of osteomyelitis Patient was seen and evaluated at bedside Radiographs were reviewed and the results were discussed with the patient A nonstick dry dressing of Xeroform, ABD pads, and a gauze roll were applied to both feet. The patient ready had postop shoes dispensed at bedside prior to my consultation, and he may weight-bear as tolerated in these upon discharge. His empirical antibiotic therapy at this time appears to been effective, and he is clear from my standpoint to be stepped onto oral medication, and thus clear for discharge He was given an appointment card for our wound care center for May 25 at 10:30 AM, and he should follow up on this date. His final wound care recommendations upon discharge are as follows: Silvadene, and a dry sterile dressing once daily and will need an Rx for this upon discharge. The patient appears physically able to perform his own wound care in this situation. Consult Acknowledgment - Thank you for your consult request.
[2018-05-21] MEDS ORDERED: SILVADENE20 GM TOP ×2 (13:17→15:09)
--- NOTE | 2018-05-21 13:33 | Discharge Summary ---
Visit Information Visit Dates Admission Date: 05/19/18 Discharge Date: 05/21/18 Hospital Course Course Attending Physician: Meng Kumar MD Primary Care Physician: Mildred Louis MD Hospital Course: 67-year-old gentleman from home, former smoker, past medical history significant for lnm-lzuovmd-djsvwkyww type 2 diabetes mellitus complicated by peripheral neuropathy, schizoaffective disorder, history of substance abuse disorder, hypertension, came in because his PCP advised him to. Apparently he had bilateral foot ulcers that was seen at [facility] last week and was given a 10 day course of Keflex which he completed. However his ulcers have not improved. He also states that he drinks about 3-5 beers per week his last drink was 3:30 PM on day of admission. Denies that he had needed any hospitalization for detox in the past denies any IV drug use. On interview denies fever, chills , shortness of breath, chest pain, bowel or bladder symptoms. Vitals in ED were stable on examination bilateral conjunctival injection, decreased sensation to light touch up to above ankles bilaterally. Bilateral ulcers on plantar aspect of feet. right ulcer worse than left. Healthy granulation tissue noted with rolled edges no purulent discharge. Right dorsalis pedis fainter than left. Bilateral mild pitting edema up to merino. Rest of examination unremarkable. Labs CBC/BEP unremarkable, lactic acid elevated 2.4, alcohol level of 200, X- ray foot shows soft tissue swelling without evidence of osteomyelitis. He was started on Unasyn in the ED, and he was admitted to general medicine floor for treatment of cellulitis that failed outpatient therapy. He was placed on CIWA protocol given alcohol level of 200. He received 3 total days of Unasyn therapy, was vitally stable, never had leukocytosis, lactic acid resolved. Wound care had seen him when he was admitted, did excisional debridement at bedside, and instructed nursing staff on how to do bandage changes. Podiatry also saw patient, who recommended Silvadene cream with a dry dressing, weightbearing as tolerated, and outpatient follow-up. Patient was given Augmentin 500 mg twice daily, 5 total tablets, to finish a 5 day course for failure of outpatient treatment of cellulitis. Patient was instructed to follow -up closely with his primary care practitioner, especially given his peripheral neuropathy and diabetic ulcers. Patient is also going to see the bakery decorator outpatient, and will change his own dressings at home. Patient was given strict return precautions, verbalized understanding. Allergies: Coded Allergies: STATINS (MYALGIAS 08/21/17) melatonin (NIGHTMARES 08/21/17) varenicline (From CHANTIX) (NIGHTMARES 08/21/17) Significant Procedures: BEDSIDE DEBRIDEMENT FOOT XRY - 05/19/18 BILATERAL FEET 3 VIEWS CLINICAL INFORMATION: Open ulcer. Concern for osteomyelitis. COMPARISON: None. TECHNIQUE: AP, lateral, oblique views of each foot were obtained. FINDINGS: There are no fractures. There is moderate degenerative change at the first MTP joints bilaterally. There is soft tissue swelling overlying the left fifth MCP joint. There is no significant soft tissue swelling. There is a small left-sided plantar surface calcaneal spur. There is no ankle joint effusion. There are no areas of acute bony destruction suspected. IMPRESSION: No acute bony destruction demonstrable. Soft tissue swelling about the fifth digit on the left as stated above. Chronic changes as stated above. Pertinent Lab Results: Lactic Acid 2.4-->2.2-->1.2 Disposition Summary Disposition Principal Diagnosis: B/L [id number] FOOT ULCERS B/L LE Cellulitis failed outpatient therapy Lactic Acidosis EtOH abuse Chronic hypoxic respiratory failure, stable T2DM, non insulin dependent Additional Diagnosis: as above Discharge Disposition: home health services Discharge Instructions General Discharge Information Code Status: Do Not Resucitate/Intubat Patient's Diet: Diabetic Diet Patient's Activity: Weight bear as tolerated Follow-Up Instructions/Appts: - Please follow up with your Band Saw Operator Cake Cutting within 1-2 weeks of discharge. - Please change dressings with SILVADENE and DRY STERILE DRESSING ONCE DAILY - Please follow up with your primary care physician within 1-2 weeks of discharge. Inform your primary care physician of this admission to [facility]. - Continue your current medications per discharge instructions. - Please watch for these problems: Fever, Chills, Nausea, Vomiting, Shortness of Breath, Productive Cough, Chest Pain/Discomfort, Abdominal Pain, Active Bleeding or Bloody urine/stool. Medications at Discharge Discharge Medications: Continue taking these medications: Glyburide/Metformin HCl (Glyburide-Metformin 5-500 MG) 5 MG-500 MG TABLET 1 Tablet ORAL TWICE DAILY Aspirin (Ecotrin*) 81 MG TABLET.DR 1 Tablet ORAL DAILY Amlodipine (Norvasc) 2.5 MG TABLET 1 Tablet ORAL DAILY Olmesartan Medoxomil (Benicar) (Unknown Strength) TABLET Unknown Dose ORAL DAILY Start taking the following new medications: Augmentin (Augmentin 500-125 Tablet) 500 MG-125 MG TABLET 1 Tablet ORAL TWICE DAILY Qty = 4 No Refills Silver Sulfadiazine (Silvadene) 1 % CREAM..G. 1 Application On the skin DAILY Qty = 50 No Refills Instructions: apply to affected area(s) Copies To: Missy JOHNSON,Mildred Waite
== END 2018-05-21 16:30 | disposition home health service (06) | DRG 571 ==
LOC: ERH 20:08 → 2NB 23:07 → ERHI 23:07 → ENRESERV 05-20 00:01 → 2NB 05-20 00:53 → ENTRNSPT 05-21 16:13 → 2NB 05-21 16:30 → EDTRNSPTSTS 05-21 16:40 → EDTRNSPT 05-21 16:40 → CMPTRNSPT 05-21 17:16
PROVIDERS: Physician Assistant
PROC: 0JBR0ZZ Excision of Left Foot Subcutaneous Tissue and Fascia, Open Approach (ICD-10-PCS; principal; 2018-05-20)
PROC: 0JBQ0ZZ Excision of Right Foot Subcutaneous Tissue and Fascia, Open Approach (ICD-10-PCS; 2018-05-20)
DX: L03.116 Cellulitis of left lower limb (principal); F11.20 Opioid dependence, uncomplicated; L97.429 Non-pressure chronic ulcer of left heel and midfoot with unspecified severity; E87.2 Acidosis; L03.115 Cellulitis of right lower limb; F10.229 Alcohol dependence with intoxication, unspecified; F25.9 Schizoaffective disorder, unspecified; J44.9 Chronic obstructive pulmonary disease, unspecified; G47.33 Obstructive sleep apnea (adult) (pediatric); E11.621 Type 2 diabetes mellitus with foot ulcer; E11.40 Type 2 diabetes mellitus with diabetic neuropathy, unspecified; L97.519 Non-pressure chronic ulcer of other part of right foot with unspecified severity; Y90.7 Blood alcohol level of 200-239 mg/100 ml; Z88.8 Allergy status to other drugs, medicaments and biological substances; F31.9 Bipolar disorder, unspecified; I10 Essential (primary) hypertension; Z66 Do not resuscitate; Z96.641 Presence of right artificial hip joint; E11.65 Type 2 diabetes mellitus with hyperglycemia; Z79.84 Long term (current) use of oral hypoglycemic drugs
CPT/HCPCS: 2NBSP; ERO; 36592; 73630-LT; 73630-RT; 80307; 87040; 93005; 93010; G0480; J1650

== ENCOUNTER 2018-06-28 13:30 | Inpatient (IN) | payer OTHER, MEDICARE ==
[~2018-06-28] VITALS: Ht 185.4 cm; Wt 88.0 kg
[~2018-06-28 13:30] MED LIST changes: +AUGMENTIN 500-1 EACH PO; +BENICAR20 M1 PO; +NORVASC2.5 M1 PO; +SILVADENE20 GM TOP
[2018-06-28 14:47] LABS: ABSOLUTE BASOPHIL COUNT 0 /CUMM (0.0-0.2); ABSOLUTE EOSINOPHIL COUNT 0.1 /CUMM (0.0-0.7); ABSOLUTE GRANULOCYTE CT 11.4 /CUMM (1.4-6.5); ABSOLUTE LYMPH COUNT 0.5 /CUMM (1.2-3.4); ABSOLUTE MONOCYTE COUNT 0.7 /CUMM (0.10-0.60); BASOPHIL % 0.1 % (0.0-2.0); EOSINOPHIL % 0.8 % (0-5); HEMATOCRIT 34.8 % (42-52); MEAN CORPUSCULAR HGB CONC 34.2 G/DL (33.0-37.0); MEAN CORPUSCULAR VOLUME 87.7 FL (80.0-94.0); MEAN PLATELET VOLUME 8.4 FL (7.4-10.4); PLATELET COUNT 276 /CUMM (130-400); RBC DISTRIBUTION WIDTH 14.1 % (11.5-14.5); RED BLOOD CELL CT 3.97 /CUMM (4.70-6.10); WHITE BLOOD CELL COUNT 12.7 /CUMM (4.8-10.8)
[2018-06-28 14:51] LABS: PT 15.2 SEC (9.4-12.5); PTT 29 SEC (25-37)
[2018-06-28 15:12] LABS: GRANULOCYTE % 89.7 % (42.2-75.2)
--- NOTE | 2018-06-28 18:04 | ED GENERAL ADULT ---
History of Present Illness General Chief Complaint: Lower Extremity Problems Stated Complaint: SIB DR. PARISH FOR RT FOOT INFECTION Source: patient Exam Limitations: no limitations Vital Signs & Intake/Output Vital Signs & Intake/Output Vital Signs Date Time Temp Pulse Resp B/P B/P Pulse O2 O2 Flow FiO2 Mean Ox Delivery Rate 06/28 2340 98.9 79 18 126/66 98 Room Air 06/28 2134 98.0 81 18 100/56 98 Room Air 06/280 Room Air 06/28 1946 98.2 78 18 113/70 97 Room Air 06/28 1337 99.1 90 18 103/69 95 Room Air ED Intake and Output 06/29 0000 06/28 1200 Intake Total 1000 Output Total Balance 1000 Intake, IV 1000 Patient 195 lb Weight Allergies Coded Allergies: STATINS (MYALGIAS 08/21/17) melatonin (NIGHTMARES 08/21/17) varenicline (From CHANTIX) (NIGHTMARES 08/21/17) Triage Note: PT SENT TO ER FROM WOUND CLINIC FOR MRI AND ADMISSION FOR IV ABT FOR R FOOT INFECTION, PT HAS BEEN BEING TREATED FOR 6 WEEKS FOR WOUND TO R FOOT, DRESSING IN PLACE, STATES THAT HE HAS BEEN USING SILVADENE AND XEROFORM TO AREA, WAS GETTING BETTER BUT THE PAST 2 WEEKS IT STARTED TO DRAIN AND HAVE INCREASED REDNESS TO AREA Triage Nurses Notes Reviewed? yes HPI: 67-year-old man with multiple medical problems significant for schizoaffective disorder, substance abuse, and xhb-jwhbcmv-gosekkgic diabetes mellitus sent in from the wound care center for evaluation of a foot infection. Patient was seen at [facility] early in May for evaluation of bilateral foot ulcers for which she was prescribed a 10 day course of Keflex which reportedly improved his symptoms. Patient was recently admitted to [facility] from 05/19/18-05/21/18 for evaluation of lower extremity wounds concerning for cellulitis that failed outpatient antibiotic therapy. He was treated with intravenous Unasyn and discharged home to complete a 5-day total course of antibiotics with oral Augmentin. He has been following with fiberglass boat parts finisher Dr. Parish with the wound care center. He reports that the wound was getting better but for the past 2 weeks he started to drain with increased redness. An x-ray was ordered last week that demonstrated no acute osteomyelitis. He was seen in the wound care center today where his fiberglass boat parts finisher sent him to the ED for evaluation. Presently patient states that he feels well and denies any fever, chills, chest pain, shortness of breath, abdominal pain, nausea. (Chon Luis MD) Reconcile Medications Amlodipine (Norvasc) 2.5 MG TABLET 1 TAB PO DAILY BP (Reported) Aspirin (Ecotrin*) 81 MG TABLET.DR 1 TAB PO DAILY HEART HEALTH (Reported) Glyburide/Metformin HCl (Glyburide-Metformin 5-500 MG) 5 MG-500 MG TABLET 1 TAB PO BID DM (Reported) Olmesartan Medoxomil (Benicar) (Unknown Strength) TABLET (Unknown Dose) PO DAILY BP (Reported) Silver Sulfadiazine (Silvadene) 1 % CREAM..G. 1 JEANINE TOP DAILY diabetes ulcer apply to affected area(s). (Romelia JOHNSON,Donald Abdul) Past History Travel History Traveled to [place] past 21 day No Medical History Any Pertinent Medical History? 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 No (Chon Luis MD) Review of Systems Review of Systems Constitutional: Reports: see HPI. (Chon Luis MD) Physical Exam Physical Exam General Appearance: well developed/nourished, no apparent distress, alert, awake , comfortable Comments: General - well developed, well nourished elderly man in no acute distress HEENT - NCAT, PERRL, EOMI, anicteric sclera Neck- Supple, no JVD/HJR, no bruits, trachea midline, thyroid normal Cardio -3/6 SCHUYLER at right sternal border; regular rate and rhythm Resp - Clear to auscultation bilaterally GI - Soft, nontender, nondistended, bowel sounds present Neuro - Awake and alert, CN II - XII grossly intact Extremities - No edema, pulses intact Right foot-wrapped in sterile gauze dressing with clear/yellow/serosanguineous drainage when unwrapped reveals an unstageable ulcer 2 inches in diameter with purulent drainage and areas of bleeding Core Measures ACS in differential dx? No CVA/TIA Diagnosis: No Sepsis Present: No Sepsis Focused Exam Completed? No (Toby JOHNSON,Chon) Progress Differential Diagnoses I considered the following diagnoses in my evaluation of the patient: Cellulitis , osteomyelitis, sepsis Plan of Care: Orders Procedure Date/time Status Nothing by Mouth 06/29 B Active CBC WITHOUT DIFFERENTIAL 06/29 06 Active BASIC ELECTROLYTES PLUS BUN&CR 06/29 06 Active Weight 06/29 0033 Active Teach/Educate 06/29 33 Active Pain Treatment and Response 06/29 33 Active Nutritional Intake, Monitor 06/29 33 Active Isolation 06/29 33 Active Patient Care Conference 06/29 0033 Active MRI-RT FOOT W/O & W ROYAL 06/29 UNK Active MRI-RT FOOT W/O ROYAL 06/29 UNK Active URINE OSMOLALITY 06/288 Active URINE LYTES, SPOT 06/288 Active URINALYSIS 06/28 2318 Active SERUM OSMOLALITY 06/28 2318 Active Code Status 06/28 2315 Active Pathway - chart 06/28 2313 Active House Staff 06/28 2313 Active Patient Data 06/28 2313 Active Code Status 06/28 2313 Complete Intake & Output 06/28 2043 Active Patient Data 06/28 1958 Active Code Status 06/28 195 Complete Lab Add-on Test 06/28 1814 Active THYROID STIMULATING HORMONE 06/28 1418 Complete THYROXINE 06/28 1418 Complete WESTERGREN SED RATE 06/28 1418 Complete BLOOD CULTURE 06/28 1402 Active TROPONIN LEVEL 06/28 1402 Complete PARTIAL THROMBOPLASTIN TIME 06/28 1402 Complete PROTHROMBIN TIME 06/28 1402 Complete LACTIC ACID 06/28 1402 Complete COMPREHENSIVE METABOLIC PANEL 06/28 1402 Complete CBC WITHOUT DIFFERENTIAL 06/28 1402 Complete EKG 06/28 1402 Active ED Holding Orders 06/28 UNK Active Admit to inpatient 06/28 UNK Active Lab Add-on Test 06/28 UNK Active VTE Mechanical Prophylaxis 06/28 UNK Active Vital Signs 06/28 UNK Active FingerStick- Glucose 06/28 UNK Active Activity/Ambulation 06/28 UNK Active Current Medications Sig/Satnam Start time Last Medication Dose Stop Time Status Admin Amlodipine Besylate 2.5 MG DAILY 06/29 09 AC (Norvasc) Aspirin Buffered 81 MG DAILY 06/29 09 AC (Ecotrin) Heparin Sodium 5,000 UNIT Q8 06/29 0600 AC (Porcine) Dextrose/Sodium 1,000 ML Q13H 06/29 0300 AC Chloride (D5W-1/2 Normal Saline 1000ML) Acetaminophen 650 MG Q6P PRN 06/28 2315 AC (Tylenol) Insulin Human Regular 0 Q6 06/28 2315 AC 06/28 (NovoLIN R) 2342 Oxycodone/ 1 TAB Q6P PRN 06/28 2315 AC Acetaminophen (Percocet) Laboratory Tests 06/28/18 1702: Lactic Acid Cancelled 06/28/18 1418: Anion Gap 17 H, Estimated GFR 51 L, BUN/Creatinine Ratio 18.6, Glucose 167 H, Lactic Acid 1.5, Calcium 9.4, Total Bilirubin 0.8, AST 22, ALT 32, Alkaline Phosphatase 118, Troponin I < 0.01, Total Protein 7.0, Albumin 4.0, Globulin 3.0 , Albumin/Globulin Ratio 1.3, TSH 1.800, Thyroxine (T4) 7.2, PT 15.2 H, INR 1.39 H, APTT 29, CBC w Diff NO MAN DIFF REQ, RBC 3.97 L, MCV 87.7, MCH 30.0, MCHC 34.2, RDW 14.1, MPV 8.4, Gran % 89.7 H, Lymphocytes % 4.0 L, Monocytes % 5.4, Eosinophils % 0.8, Basophils % 0.1, Absolute Granulocytes 11.4 H, Absolute Lymphocytes 0.5 L, Absolute Monocytes 0.7 H, Absolute Eosinophils 0.1, Absolute Basophils 0, ESR Westergren 64 H Microbiology 06/28 1426 BLOOD: Blood Culture - RECD 06/28 1418 BLOOD: Blood Culture - RECD Initial ED EKG: none Comments: Patient presently feels well and denies any complaints including fever, chills, or foot pain. Vital signs are within normal limits. Significant labs include WBC 12.7, sodium 129, potassium 5.4, anion gap 17, creatinine 1.4. Troponin I is <0.01. Initial lactic acid is negative. ESR is 64. Repeat x-ray is unchanged from previous. Blood cultures 2 were drawn in the ED. Clinically patient appears to have a recurrent lower extremity cellulitis with a possible underlying osteomyelitis resulting in acute kidney injury and multiple metabolic derangements. Patient appears to have a localized infection however does not meet criteria for sepsis. Case was discussed with fiberglass boat parts finisher Dr. Saji Parish whom recommended admission to the medical service and to be followed off antibiotics. Patient should be kept n.p.o. after midnight for washout and biopsy in the OR tomorrow. (Chon Luis MD) Departure Departure Disposition: STILL A PATIENT Condition: Stable Clinical Impression Primary Impression: Cellulitis Referrals: Mildred Louis MD (PCP/Family) Departure Forms: Customer Survey General Discharge Information Admission Note Spoke With: Kyle Liz MD Documentation of Exam: Documentation of any treatments & extenuating circumstances including Concerns Regarding Discharge (functional status, medication knowledge or non-compliance, living conditions, etc.) that warrant an admission rather than observation: * Bone biopsy / OR washout * Intravenous fluid/intravenous antibiotic * Podiatry count * Consider ID consult (Chon Luis MD) Resident Co-Sign Statement Statement: ED Attending supervision documentation- [X] I saw and evaluated the patient. I have also reviewed all the pertinent lab results and diagnostic results. I agree with the findings and the plan of care as documented in the Resident's documentation. [X] I have reviewed the ED Record and agree with the Resident's documentation. [] Additions or exceptions (if any) to the Resident's note and plan are summarized below: [] (Romelia JOHNSON,Donald Abdul) Critical Care Note Critical Care Note Critical Care Time: 30-74 min (Chon Luis MD)
--- NOTE | 2018-06-28 19:07 | RADIOLOGY REPORT ---
EXAMINATION: XR FOOT, RIGHT CLINICAL INFORMATION: Foot ulceration. Concern for osteomyelitis. COMPARISON: Right foot 06/21/2018, 05/19/2018 TECHNIQUE: AP, lateral, and oblique views of the right foot. FINDINGS: There is a prominent focal soft tissue swelling at the great toe centered around the metatarsal phalangeal joint. This has enlarged since prior radiographs. The first MTP joint remains mildly narrowed with subchondral sclerosis and cystic changes and marginal bone spurs. These are changes of degenerative joint disease. There is stable since prior exam. There is no acute abnormality. There is no bone destruction to suggest osteomyelitis. IMPRESSION: Soft tissue swelling around the first MTP joint continues to increase. There is no radiographic evidence for osteomyelitis, there is no bone destruction. 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 MRI without and with contrast, may be helpful for further assessment
--- NOTE | 2018-06-28 20:22 | History & Physical ---
Gisselle Robison 06/28/182020: General Information and HPI MD Statement: I have seen and personally examined BUD HUNT and documented this H&P. The patient is a 67 year old M who presented with a patient stated chief complaint of []. Source of Information: patient Exam Limitations: no limitations History of Present Illness: 67 year old male with PMH schizoaffective disorder, h/o substance abuse, DM, COPD, renal mass, HTN presenting to ED at the request of Dr. Carrion for admission with R foot infection. Patient was recently hospitalized at [place] -05/21 for right foot infection; tx with IV abx then discharged with PO abx: Augmentin for 5 days. Patient reports he completed this tx plan and his symptoms improved. He performs daily wound care with Silvadene and xeroform and has a visiting RN on [facility]. He states about 2 weeks ago he noticed his wound getting red and RLE becoming swollen. He reports a pink drainage from wound and no associated pain. He states his glucose at home has been between 130-160. Denies fever, chills, n/v/d, chest pain, SOB, abdominal pain. 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 Home Who Do You Live With? self Services at Home: None Primary Language: Estonian Smoking Status: Former Smoker (quit 3 yrs ago; 30pk yr hx) ETOH Use: denies use (2-3 beers; not daily), occasional use Illicit Drug Use: denies illicit drug use Review of Systems Review of Systems Constitutional: Reports: no symptoms. EENTM: Reports: no symptoms. Cardiovascular: Reports: no symptoms. Respiratory: Reports: no symptoms. GI: Reports: no symptoms. Genitourinary: Reports: no symptoms. Musculoskeletal: Reports: no symptoms. Skin: Reports: erythema, lesions. Neurological/Psychological: Reports: no symptoms. Exam & Diagnostic Data Last 24 Hrs of Vital Signs/I&O Vital Signs Date Time Temp Pulse Resp B/P B/P Pulse O2 O2 Flow FiO2 Mean Ox Delivery Rate 06/28 2340 98.9 79 18 126/66 98 Room Air 06/28 2134 98.0 81 18 100/56 98 Room Air 06/28 2040 Room Air 06/28 1946 98.2 78 18 113/70 97 Room Air 06/28 1337 99.1 90 18 103/69 95 Room Air Intake & Output 06/29 0800 06/29 0000 06/28 1600 Intake Total 1000 Output Total Balance 1000 Intake, IV 1000 Patient 195 lb 195 lb Weight Weight Reported by Patient Measurement Method Physical Exam General Appearance Alert, Oriented X3, Cooperative, No Acute Distress Skin see extremity exam Skin Temp/Moisture Exam: Warm/Dry HEENT Atraumatic, PERRLA, Mucous Membr. moist/pink Neck Supple Cardiovascular Regular Rate, Normal S1, Normal S2, No Murmurs Lungs Clear to Auscultation Abdomen Normal Bowel Sounds, Soft, No Tenderness Extremities RLE with erythema and edema to mid mernio; ulcerations x 2 on plantar surface of foot-non tender to palpation. Left plantar surface with ulceration without erythema or edema Assessment/Plan Assessment: 67 year old male with PMH schizoaffective disorder, h/o substance abuse, DM, COPD, renal mass, HTN presenting to ED at the request of Dr. Carrion for admission with R foot infection. Patient was recently hospitalized at [place] -05/21 for right foot infection; tx with IV abx then discharged with PO abx: Augmentin for 5 days. Patient reports he completed this tx plan and his symptoms improved. He performs daily wound care with Silvadene and xeroform and has a visiting RN on [facility]. He states about 2 weeks ago he noticed his wound getting red and RLE becoming swollen. He reports a pink drainage from wound and no associated pain. He states his glucose at home has been between 130-160. Patient to be admitted to general medicine service for further care of the following: Problem List: 1. Cellulitis RLE 2. Chronic wounds RLE and LLE: ?osteomyelitis 3. Hyponatremia 4. Hyperkalemia 5. SHAYLA Admission Data: VS T99.1 P90 RR18 BP103/69 Sat95%RA Labs: WBC 12.7 H/H 11.9/34.8 Plt 276 Na 129 K5.4 BUN/Cr 26/1.4 Glu 167 LA 1.5 LFTs WNL Trop negative Albumin 4.0 INR 1.39 BCx pending; 1L NS given in ED XR right foot: IMPRESSION: Soft tissue swelling around the first MTP joint continues to increase. There is no radiographic evidence for osteomyelitis, there is no bone destruction. 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 MRI without and with contrast, may be helpful for further assessment #Cellulitis RLE/chronic wounds RLE and LLE -Follow off abx as patient most likely going to OR tomorrow with Dr. Carrion -NPO after midnight for possible OR in AM -MRI to rule out osteomyelitis -follow up Podiatry note #Hyponatremia-129; may be 2/2 hypovolemia -Urine lytes; serum osm; urine osm -continue to monitor -IV fluids 75cc/hr NS #Hyperkalemia -no ekg changes -continue to monitor #SHAYLA-likely 2/2 decreased PO intake in setting of infection -IV fluid hydration with NS@ 75cc/hr -continue to monitor Cr DVT prophylaxis: heparin/ALPS/ambulation Code status: DNR/DNI As Ranked By This Provider Problem List: 1. Hyperkalemia 2. Hyponatremia 3. Cellulitis Core Measures/Misc (07/19) Acute Coronary Syndrome ACS Diagnosis: No Congestive Heart Failure Congestive Heart Failure Diagnosis No Cerebrovascular Accident CVA/TIA Diagnosis: No VTE (View Protocol) VTE Risk Factors Acute Medical Illness No Mechanical VTE Prophylaxis d/t N/A MechProphylax Ordered No VTE Pharm Prophylaxis d/t NA PharmProphylax ordered Sepsis (View protocol) Sepsis Present: No If YES complete Sepsis Event Note If YES complete Sepsis Event Note Kyle Liz MD 06/29/18 0004: General Information and HPI Allergies/Medications Home Med list Amlodipine (Norvasc) 2.5 MG TABLET 1 TAB PO DAILY BP (Reported) Aspirin (Ecotrin*) 81 MG TABLET.DR 1 TAB PO DAILY HEART HEALTH (Reported) Glyburide/Metformin HCl (Glyburide-Metformin 5-500 MG) 5 MG-500 MG TABLET 1 TAB PO BID DM (Reported) Olmesartan Medoxomil (Benicar) (Unknown Strength) TABLET (Unknown Dose) PO DAILY BP (Reported) Silver Sulfadiazine (Silvadene) 1 % CREAM..G. 1 JEANINE TOP DAILY diabetes ulcer apply to affected area(s). Core Measures/Misc (07/19) Sepsis (View protocol) If YES complete Sepsis Event Note If YES complete Sepsis Event Note Attending MD Review Statement Attending Statement Attending MD Statement: examined this patient, discuss w/resident/PA/GRAPHIC ARTS INSTRUCTOR, agreed w/resident/PA/GRAPHIC ARTS INSTRUCTOR, reviewed EMR data (avail) Attending Assessment/Plan: 67M PMH type 2 DM, hypertension, schizoaffectiive disorder, opiate dependancy presenting with right foot ulcer. Patient was seen by his PCP and told to come to ER. Ulcer is right foot, plantar on forefoot, with 4cm ulcer exposing fat with surrounding yellow discharge and erythema. Patient denies pain due to diabetic neuropathy. He has no other complaints. Afebrile, stable vitals, normal WBC, creatinine 1.4, sodium 129. 1. Right foot cellulitis and abscess 2. Right diabetic foot ulcer exposing fat layer 3. SHAYLA 4. Hyponatremia Plan - Admit to general medicine - Hold antibiotics for now - MRI foot - Podiatry consult - Blood cultures - IV hydration - Trend renal function - Continue home medications - NPO after midnight in case debridement and bone biopsy is required - DVT PPx Clifton Ventura 06/29/18 0340: Core Measures/Misc (07/19) Sepsis (View protocol) If YES complete Sepsis Event Note If YES complete Sepsis Event Note Resident Review Statement Resident Statement: examined this patient, discussed with software development intern, agreed with software development intern, discussed with family, reviewed EMR data (avail), discussed with nursing , discussed with case mgmt, reviewed images, amended to note Other Findings: This is a 67-year-old male with past medical history significant for hypertension, hyperlipidemia, diabetes mellitus, she is affective disorder, substance abuse, bipolar, depression, renal mass presented to the emergency department from Dr. Jhaveri's office for management of right foot ulcer. Patient was last admitted to [facility] May 19, 2018 for right foot cellulitis, treated with IV Unasyn and Augmentin. For the past 6 weeks he has been going to wound care center for regular dressings. Patient reported that he completed his treatment and his symptoms were improved. However for the past 2 weeks he noticed acute worsening of right foot wound on plantar side associated with drainage and redness. He denies any pain at the site. No fever, chills. He followed up with Dr. Carrion this morning, he was sent to the hospital for admission to get MRI foot and further management. On further questioning he denied any fever, chills, chest pain, palpitations, short of breath, cough, nausea, vomiting, abdominal pain, change in bladder or bowel habits. He is a former smoker quit 3 years ago. Denies alcohol use and illicit drug use. -------- Vitals T99.1 P90 RR18 BP103/69 Sat95%RA Labs: WBC 12.7 H/H 11.9/34.8 Plt 276 Na 129 K5.4 BUN/Cr 26/1.4 Glu 167 LA 1.5 LFTs WNL Trop negative Albumin 4.0 INR 1.39 BCx pending. XR right foot: Soft tissue swelling around the first MTP joint continues to increase. There is no radiographic evidence for osteomyelitis, there is no bone destruction. 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 MRI without and with contrast, may be helpful for further assessment Right foot cellulitis Patient was sent in by Dr. Carrion for nonhealing right foot ulcer. Patient reports nonhealing ulcer for last couple of weeks associated with redness, drainage. Denied any pain, fever, chills. ESR was 64, he is afebrile, leukocytosis 12.7. * Admit to general medicine * Monitor vitals every shift * Monitor for fever, leukocytosis * MRI right foot in the a.m. * will hold off antibiotics * N.p.o. tonight * IV fluids after midnight * Follow-up podiatry recommendations * Follow-up blood cultures 2 Acute kidney injury creatinine 1.4. His baseline creatinine was 0.8. Most likely prerenal from infection. * IV fluids * Home medication olmesartan on hold * Follow-up creatinine in the a.m. * pls avoid nephrotoxic agents Hyperkalemia Potassium 5.4. EKG 88, sinus rhythm no EKG changes suggestive of hyperkalemia Follow-up potassium in the a.m. Hyponatremia Sodium 129. Will check urine lites, serum osmolality, urine osmolality, urine lites. Looks like hypotonic/hypovolemic hyponatremia Diabetes mellitus Accu-CheZhane soria sliding scale as he is n.p.o. hypertension continue amlodipine 2.5 daily, hold olmesartan given SHAYLA Continue aspirin 81 daily DVT prophylaxis subcu heparin DNR/DNI N.p.o. Pain pathway ordered
--- NOTE | 2018-06-29 00:06 | Admission Certification ---
Admission Certification Certification Statement - As attending physician, I certify that at the time of - admission, based on clinical presentation, severity of - symptoms, need for further diagnostic testing and - therapeutic interventions, and risk of adverse outcomes - without in-hospital treatment, in my clinical assessment, - this patient requires an acute hospital stay for a minimum - of two nights or longer. I have also considered psychsocial - factors such as support system, advanced age, financial - issues, cognitive issues, and failed out-patient treatments, - past re-admission history, safety of patient, and lack of - compliance as applicable. Specific rationale supporting this admission is: Worsening diabetic foot ulcer with evidence of absces, possible osteomyelitis, and SHAYLA
[2018-06-29 08:20] LABS: ABSOLUTE BASOPHIL COUNT 0 /CUMM (0.0-0.2); ABSOLUTE EOSINOPHIL COUNT 0.1 /CUMM (0.0-0.7); ABSOLUTE GRANULOCYTE CT 6.6 /CUMM (1.4-6.5); ABSOLUTE LYMPH COUNT 0.6 /CUMM (1.2-3.4); ABSOLUTE MONOCYTE COUNT 0.4 /CUMM (0.10-0.60); BASOPHIL % 0.2 % (0.0-2.0); EOSINOPHIL % 1.4 % (0-5); HEMATOCRIT 34.7 % (42-52); MEAN CORPUSCULAR HGB 29.6 PG (27.0-31.0); MEAN CORPUSCULAR HGB CONC 33.4 G/DL (33.0-37.0); MEAN CORPUSCULAR VOLUME 88.6 FL (80.0-94.0); MEAN PLATELET VOLUME 8.9 FL (7.4-10.4); PLATELET COUNT 239 /CUMM (130-400); RBC DISTRIBUTION WIDTH 13.9 % (11.5-14.5); RED BLOOD CELL CT 3.92 /CUMM (4.70-6.10); WHITE BLOOD CELL COUNT 7.7 /CUMM (4.8-10.8)
--- NOTE | 2018-06-29 08:41 | PN- Housestaff ---
Consuelo Kasper 06/29/18 0840: Subjective Follow-up For: Right foot cellulitis SHAYLA Hyperkalemia Hyponatremia Subjective: Patient was seen and examine at bedside. He has no new complaints. Denies fever, chills, nausea, vomiting, chest pain. Review of Systems Constitutional: Reports: see HPI. EENTM: Reports: see HPI. Objective Last 24 Hrs of Vital Signs/I&O Vital Signs Date Time Temp Pulse Resp B/P B/P Pulse O2 O2 Flow FiO2 Mean Ox Delivery Rate 06/29 0920 99.3 74 20 130/60 06/29 0919 99.3 74 20 130/60 98 Room Air 06/29 0646 98.9 70 18 103/55 97 Room Air 06/28 2340 98.9 79 18 126/66 98 Room Air 06/28 2134 98.0 81 18 100/56 98 Room Air 06/28 2040 Room Air 06/28 1946 98.2 78 18 113/70 97 Room Air Intake & Output 06/29 1600 06/29 0800 06/29 0000 Intake Total 1000 Output Total Balance 1000 Intake, IV 1000 Patient 195 lb Weight Weight Reported by Patient Measurement Method Physical Exam General Appearance: Alert, Oriented X3, Cooperative, No Acute Distress, Mild Distress Neck: Supple Cardiovascular: Regular Rate, Normal S1, Normal S2 Lungs: Clear to Auscultation, Normal Air Movement Abdomen: Normal Bowel Sounds, Soft, No Tenderness, No Hepatospenomegaly Extremities: RLE with erythema and edema upto the merino, 2 ulcers on the plantar surface of the feet, non tender to palpation, Left plantatr surface with ulcers but no edema or erythema Assessment/Plan Assessment: 67 year old male with PMH schizoaffective disorder, h/o substance abuse, DM, COPD, renal mass, HTN is admitted to the Gen Med service at the request of Dr. Carrion for admission with R foot infection. Patient was recently hospitalized at [place] 05/19-05/21 for right foot infection; tx with IV abx then discharged with PO abx: Augmentin for 5 days. Patient reports he completed this tx plan and his symptoms improved. He performs daily wound care with Silvadene and xeroform and has a visiting RN on [facility]. He states about 2 weeks ago he noticed his wound getting red and RLE becoming swollen. He reports a pink drainage from wound and no associated pain. He states his glucose at home has been between 130-160. Patient to be admitted to general medicine service for further care of the following: Problem List: 1. Cellulitis RLE 2. Chronic wounds RLE and LLE: ?osteomyelitis 3. Hyponatremia 4. Hyperkalemia 5. SHAYLA IMPRESSION: Soft tissue swelling around the first MTP joint continues to increase. There is no radiographic evidence for osteomyelitis, there is no bone destruction. 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 MRI without and with contrast, may be helpful for further assessment 1.Cellulitis RLE/chronic wounds RLE and LLE -Follow off abx as patient most likely going to OR today with Dr. han -MRI to rule out osteomyelitis -follow up Podiatry note 2.Hyponatremia (resolved)-134 -Urine lytes: ; serum osm; urine osm not received -continue to monitor -IV fluids 75cc/hr NS 3.Hyperkalemia -no ekg changes -K:4.8 at this time 4.SHAYLA-likely 2/2 decreased PO intake in setting of infection -IV fluid hydration with NS@ 75cc/hr -Cr: 0.4 today DVT prophylaxis: heparin/ALPS/ambulation Code status: DNR/DNI Problem List: 1. Diabetes mellitus 2. Hyperlipidemia 3. Hypertension 4. Cellulitis 5. Diabetic neuropathy 6. Alcohol abuse 7. Neuropathic diabetic ulcer of foot Pain Ratin Pain Location: none Pain Goal: Remain pain free Pain Plan: none Tomorrow's Labs & Rationales: cbc and bep Meng Kumar 06/29/18 1155: Attending MD Review Statement Attending Statement Attending MD Statement: examined this patient, discuss w/resident/PA/BIOLOGY PROFESSOR, agreed w/resident/PA/BIOLOGY PROFESSOR, discussed with family, reviewed EMR data (avail), discussed with nursing, discussed with case mgmt, reviewed images, amended to note Attending Assessment/Plan: 67M PMH type 2 DM, hypertension, schizoaffectiive disorder, opiate dependancy presenting with right foot ulcer sent by PCP. Went to OR by podiatry 1. Right foot cellulitis and abscess 2. Right diabetic foot ulcer exposing fat layer s/p debridement 3. SHAYLA with improvement 2/2 IVVD 4. Hyponatremia with improvement 5. Leukocytosis 6. DM Plan - Admit to general medicine - Start abx after debridement iv abx. Follow wound cultures from OR if sent. - MRI foot - Podiatry f/u - Blood cultures - IV hydration - Trend renal function - Continue home medications - DVT PPx
[2018-06-29 08:58] LABS: GRANULOCYTE % 85.7 % (42.2-75.2)
--- NOTE | 2018-06-29 11:05 | Operative Report ---
Operative/Inv Procedure Report Surgery Date: 06/29/18 Name of Procedure: 1 open incision and drainage deep to the deep fascia with exposure of the flexor tendon and tendon sheath multiple sites right foot 2 intraoperative menstruation Taj block anesthesia 3 excisional debridement Pre-Operative Diagnosis: 1 plantar space abscess right foot 2 diabetic peripheral neuropathy Post-Operative Diagnosis: The same Estimated Blood Loss: less than 50ml Surgeon/Loop Sewer: ROHAN PARISH DPM Anesthesia: moderate sedation, block Operative/Procedure Note Note: After obtaining informed consent the patient was brought to the operating room and placed on the operating table in the supine position. The patient was then securely fastened to the operating table utilizing a safety belt. After administration of IV sedation, 10 cc of 0.5% Marcaine plain was infiltrated about the patient's right ankle. The right foot and ankle were then scrubbed, prepped and draped in the usual aseptic manner. Attention directed to the plantar right foot, where a large full-thickness necrotic was identified. A 15 blade was utilized sharply advise skin margins. The dissection was then carried down deep to the deep fascia with exposure of the flexor tendon and tendon sheath multiple sites, both proximally and distally. All necrotic, nonviable infected tissue was sharply evacuated wound bed. Specimen was sent for both microbiologic and pathologic inspection. The open wound was then irrigated with 3 L of normal sterile saline infused with 50,000 units of bacitracin. Following this, the foot was redraped and the surgeon's operative tragically lost. Any bleeding vessels identified were cauterized or ligated as encountered. The open was then packed with iodoform and 2-0 nylon retention sutures base. The foot was then dressed with 4 x 4's, Kerlix, and an Toño wrap. The patient was noted to tolerate both procedure and anesthesia well and the patient was transferred from the operating room to recovery with vital signs stable.
[2018-06-29 16:00] VITALS: BP 160/80
[2018-06-29 22:21] VITALS: BP 140/60
[2018-06-30 06:57] VITALS: BP 112/52
--- NOTE | 2018-06-30 07:14 | PN- Housestaff ---
Newton Monahan 06/30/18 0714: Subjective Follow-up For: Right foot cellulitis SHAYLA Hyperkalemia Hyponatremia Subjective: Patient was seen and examined at bedside lying down. He has no complaints. Review of Systems Constitutional: Denies: chills, diaphoresis, fever, malaise, weakness, unexplained weight loss. Cardiovascular: Denies: chest pain, edema, orthopena, palpitations, peripheral edema, syncope. Respiratory: Denies: cough, hemoptysis, orthopnea, short of breath, sputum production, stridor, wheezing. Gastrointestinal: Denies: abdominal pain, bloating, diarrhea, bloody stool, changes in stool. Genitourinary: Denies: discharge, dysuria, frequency, hematuria, hesitation, nocturia, pain, urgency. Musculoskeletal: Denies: back pain, gout, joint pain, joint swelling, muscle pain, muscle stiffness, neck pain. Objective Last 24 Hrs of Vital Signs/I&O Vital Signs Date Time Temp Pulse Resp B/P B/P Pulse O2 O2 Flow FiO2 Mean Ox Delivery Rate 06/30 1535 99.9 87 20 130/70 95 Room Air 06/30 0855 97 112/52 06/30 0657 100.2 97 20 112/52 93 Room Air 06/29 2221 100.6 83 20 140/60 94 Room Air Intake & Output 06/30 1600 06/30 0000 Intake Total 600 600 Output Total 1200 400 Balance -600 200 Intake, IV 300 300 Intake, Oral 300 300 Output, Urine 1200 400 Physical Exam General Appearance: Alert, Oriented X3, Cooperative, No Acute Distress Cardiovascular: Regular Rate, No Murmurs Lungs: Clear to Auscultation, Normal Air Movement Abdomen: Normal Bowel Sounds, Soft, No Tenderness, No Hepatospenomegaly, No Masses Neurological: Normal Speech, Strength at 5/5 X4 Ext, Normal Tone, Sensation Intact Extremities: extyremity is dressed Current Medications: Current Medications Sig/Satnam Start time Last Medication Dose Route Stop Time Status Admin Acetaminophen 650 MG Q6P PRN 06/28 2315 AC 06/30 PO 0647 Amlodipine Besylate 2.5 MG DAILY 06/29 0900 AC 06/30 PO 0855 Ampicillin Sodium/ 3,000 MG Q6 06/29 1800 AC 06/30 Sulbactam Sodium IV 1341 Sodium Chloride 100 ML Aspirin Buffered 81 MG DAILY 06/29 0900 AC 06/30 PO 0855 Dextrose/Sodium 1,000 ML Q13H 06/29 0300 DC 06/29 Chloride IV 0325 Heparin Sodium 5,000 UNIT Q8 06/29 0600 AC 06/30 (Porcine) SC 1343 Insulin Aspart 0 TIDAC 06/30 0800 AC 06/30 SC 0912 Insulin Aspart 0 .STK-MED ONE 06/29 1819 DC SC Insulin Human Regular 0 Q6 06/28 2315 DC 06/29 SC 0701 Oxycodone/ 1 TAB Q6P PRN 06/28 2315 AC 06/30 Acetaminophen PO 0508 Tramadol HCl 50 MG ONCE ONE 06/29 2100 DC 06/29 PO 06/29 2101 2128 Last 24 Hrs of Lab/Luis Miguel Results Last 24 Hrs of Labs/Mics: Laboratory Tests 06/30/18 1628: Sodium Pending, Potassium Pending, Chloride Pending, Carbon Dioxide Pending, Anion Gap Pending, BUN Pending, Creatinine Pending, BUN/Creatinine Ratio Pending , CBC w Diff Pending, WBC Pending, RBC Pending, Hgb Pending, Hct Pending, MCV Pending, MCH Pending, MCHC Pending, RDW Pending, Plt Count Pending, MPV Pending Assessment/Plan Assessment: 67 year old male with PMH schizoaffective disorder, h/o substance abuse, DM, COPD, renal mass, HTN is admitted to the [facility] service at the request of Dr. Carrion for admission with R foot infection. Patient was recently hospitalized at [place] 05/19-05/21 for right foot infection; tx with IV abx then discharged with PO abx: Augmentin for 5 days. Patient reports he completed this tx plan and his symptoms improved. He performs daily wound care with Silvadene and xeroform and has a visiting RN on [facility]. He states about 2 weeks ago he noticed his wound getting red and RLE becoming swollen. He reports a pink drainage from wound and no associated pain. He states his glucose at home has been between 130-160. Patient to be admitted to general medicine service for further care of the following: Problem List: 1. Cellulitis RLE 2. Chronic wounds RLE and LLE: ?osteomyelitis 3. Hyponatremia 4. Hyperkalemia 5. SHAYLA Plan- -MRI to rule out osteomyelitis -follow up Podiatry note -Soft tissue culture grew staph aureus -ID recommendation appreciated, f/u ID notes, Uric acid ordered, -Follow-up uric acid levels, -Scheduled for the OR for further debridement, possible aspiration of the first MTP joint for gout and possible wound Cx and follow-up on the culture -Continue Unasyn until Debridement Cx results are back -Continue home medications DVT prophylaxis: heparin/ALPS/ambulation Code status: DNR/DNI Problem List: 1. Cellulitis Pain Ratin Pain Location: noen Pain Goal: Remain pain free Pain Plan: none Tomorrow's Labs & Rationales: uric acid Meng Kumar 06/30/18 1128: Attending MD Review Statement Attending Statement Attending MD Statement: examined this patient, discuss w/resident/PA/VEGETABLE GROWER, agreed w/resident/PA/VEGETABLE GROWER, discussed with family, reviewed EMR data (avail), discussed with nursing, discussed with case mgmt, reviewed images, amended to note Attending Assessment/Plan: 67M PMH type 2 DM, hypertension, schizoaffectiive disorder, opiate dependancy presenting with right foot ulcer sent by PCP s/p debridement and wound culture sent for culture/gram stain. 1. Right foot cellulitis 2. Right diabetic foot ulcer exposing fat layer s/p debridement 3. SHAYLA resolved 4. Hyponatremia with improvement 5. Leukocytosis 6. DM Plan - c/w iv abx. Follow wound cultures from OR. - MRI foot pending - Podiatry f/u - IV hydration - Continue home medications - DVT PPx Plan of care dwed patient and son bedside.
--- NOTE | 2018-06-30 10:01 | Cons- Vascular Surgery ---
General Information and HPI Consulting Request Date of Consult: 06/29/18 Requested By: Saji Griffith DPM Reason for Consult: Right foot ulcer Source of Information: patient, old records Exam Limitations: no limitations History of Present Illness: 67-year-old male with a history of diabetes. He is presently undergoing a incision and drainage of a right foot wound I anesthesia. He is slightly sedated for the procedure. There is no history of significant claudication or rest pain. Allergies/Medications Allergies: Coded Allergies: STATINS (MYALGIAS 08/21/17) melatonin (NIGHTMARES 08/21/17) varenicline (From CHANTIX) (NIGHTMARES 08/21/17) Home Med List: Amlodipine (Norvasc) 2.5 MG TABLET 1 TAB PO DAILY BP (Reported) Aspirin (Ecotrin*) 81 MG TABLET.DR 1 TAB PO DAILY HEART HEALTH (Reported) Glyburide/Metformin HCl (Glyburide-Metformin 5-500 MG) 5 MG-500 MG TABLET 1 TAB PO BID DM (Reported) Olmesartan Medoxomil (Benicar) (Unknown Strength) TABLET (Unknown Dose) PO DAILY BP (Reported) Silver Sulfadiazine (Silvadene) 1 % CREAM..G. 1 JEANINE TOP DAILY diabetes ulcer apply to affected area(s). 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 Home Who Do You Live With? self Services at Home: None Primary Language: Spanish Smoking Status: Former Smoker (quit 3 yrs ago; 30pk yr hx) ETOH Use: denies use (2-3 beers; not daily), occasional use Illicit Drug Use: denies illicit drug use Review of Systems Review of Systems: Patient denies complaint Exam & Diagnostic Data Vital Signs and I&O Vital Signs Date Time Temp Pulse Resp B/P B/P Pulse O2 O2 Flow FiO2 Mean Ox Delivery Rate 06/30 0855 97 112/52 06/30 0657 100.2 97 20 112/52 93 Room Air 06/29 2221 100.6 83 20 140/60 94 Room Air 06/29 1600 98.4 91 20 160/80 94 Room Air Intake & Output 06/30 0806/30 0000 06/29 1600 06/29 0000 Intake Total 341 468 8438 Output Total 1200 400 Balance -147 035 0989 Intake, IV 541 747 4088 Intake, Oral 300 300 Output, Urine 1200 400 Patient 195 lb Weight Weight Reported by Patient Measurement Method Physical Exam: Bilateral lower extremities are well perfused, he has a metatarsal head wound with significant hypertrophic granulation tissue. He has a palpable dorsalis pedis and posterior tibial pulse. Assessment/Plan Assessment/Plan 67-year-old male with a diabetic foot infection--stable from the vascular standpoint in the setting of a palpable pulse. 1.) Continue local wound care as per podiatry 2.) May follow-up as an outpatient for vascular surveillance but in the setting of the palpable pulse we will observe 3.) If wounds were not to heal may benefit from angiography 4.) Continue medical care as per primary medical team Consult Acknowledgment - Thank you for your consult request.
--- NOTE | 2018-06-30 11:54 | Patient Discharge Instructions ---
Discharge Instructions General Discharge Information Special Instructions: - If your foot ulcer is not healling, please followup w/ Vascular Surgeon ( contact provided) for possible outpatient angiography. - Please follow up w/ your PCP w/in 1-2 weeks of discharge. - Continue your current medications per discharge instructions. - Please watch for these problems: Fever, Chills, Nausea, Vomiting, Shortness of Breath, Productive Cough, Chest Pain/Discomfort, Abdominal Pain, Active Bleeding or Bloody urine/stool. Acute Coronary Syndrome Inclusion Criteria At DC or during hospital stay patient has or had the following: ACS DIAGNOSIS No Discharge Core Measures Meds if any: Prescribed or Continued at Discharge Meds if any: NOT Prescribed or Continued at Discharge Congestive Heart Failure Inclusion Criteria At DC or during hospital stay patient has or had the following: CHF DIAGNOSIS No Discharge Core Measures Meds if any: Prescribed or Continued at Discharge Meds if any: NOT Prescribed or Continued at Discharge Cerebrovascular accident Inclusion Criteria At DC or during hospital stay patient has or had the following: CVA/TIA Diagnosis No Discharge Core Measures Meds if any: Prescribed or Continued at Discharge Meds if any: NOT Prescribed or Continued at Discharge Venous thromboembolism Inclusion Criteria VTE Diagnosis No VTE Type NONE VTE Confirmed by (Test) NONE Discharge Core Measures - Per Current guidelines, there needs to be overlap - treatment for the first 5 days of Warfarin therapy. - If discharged on Warfarin prior to 5 days of - overlap therapy, the patient will need to be - assessed for post discharge needs including - *Post discharge parental anticoagulation - *Warfarin and/or parental anticoagulation education - *Follow up date to check INR post discharge At least 5 days overlap therapy as Inpatient No Meds if any: Prescribed or Continued at Discharge Note: Overlap Therapy is Warfarin and Anticoagulant Meds if any: NOT Prescribed or Continued at Discharge
--- NOTE | 2018-06-30 14:23 | MRI REPORT ---
EXAMINATION: MRI RIGHT FOOT WITHOUT CONTRAST CLINICAL INFORMATION: Soft tissue swelling. Rule out osteomyelitis. COMPARISON: Multiple prior x-rays, latest 06/28/2018 TECHNIQUE: MRI in a high-field magnet without contrast. FINDINGS: There is prominent soft tissue swelling of the 1st toe centered on the 1st MTP joint. There is irregularity of the plantar skin from ulceration at the level of the MTP joint. There is diffuse soft tissue edema present in the area of swelling. There is a lobulated focus in the plantar soft tissues in the region of the MTP joint measuring 2.8 cm transverse by 1.1 cm AP by 2.5 cm in length. This is low on T2, intermediate to low on T1-weighted sequences. Differential consideration include calcification. On the corresponding x-ray, question faint calcification in this region. The findings are suggestive of calcification. Differential consideration include gout or other nonspecific crystal deposition disease such as amyloid or hydroxyapatite deposition disease. Other differential possibilities for low signal on MR would include fibrous or hemorrhagic changes due to infection. Clinical correlation is needed. 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 There is a small to moderate joint effusion present, with internal low signal foci from synovitis/debris. This may be degenerative, inflammatory, with septic arthritis not entirely excluded. There are arthritic changes in the hallux sesamoid/metatarsal articular location as well. No convincing findings to suggest osteomyelitis. There is a diffuse soft tissue swelling and subcutaneous edema. Mild tenosynovitis of the 1st toe flexor tendon. There is a mild nonspecific edema with atrophy in the intrinsic muscles of the foot, which may reflect underlying metabolic disorder. IMPRESSION: 1. Marked soft tissue swelling of the centered on the 1st MTP joint. Plantar skin ulceration in the region of the MTP joint. There is edema in the soft tissues, which may reflect cellulitis. 2. There is a lobulated low T2, intermediate low T1 signal in the plantar soft tissues at the level of the MTP joint measuring 2.8 x 1.1 x 2.5 cm. Question subtle calcification on the x-ray. Differential considerations include calcification with differential consideration including gout, nonspecific crystal deposition disease. Other possible differentials for low signal MRI would include fibrous or hemorrhagic changes secondary to infection. Clinical correlation is needed. 3. 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 Small to moderate complex effusion, with internal low signal foci which may reflect synovitis/debris. Differential consideration include degenerative, inflammatory arthropathy, with septic arthritis not entirely excluded. Clinically correlate. Joint aspiration can be obtained as clinically warranted. 4. No convincing evidence of osteomyelitis. 5. Mild tenosynovitis of the 1st toe flexor tendon.
[2018-06-30 15:35] VITALS: BP 130/70
--- NOTE | 2018-06-30 15:52 | Cons- Infect Disease ---
General Information and HPI Consulting Request Date of Consult: 06/30/18 Requested By: Meng Kumar MD Reason for Consult: Right foot infection Source of Information: patient, old records History of Present Illness: This is a 67-year-old man with a history of schizoaffective disorder, substance abuse, hypertension, COPD, obstructive sleep apnea, and diabetes, hospitalized 6 weeks prior to admission with bilateral plantar foot ulcers after a 10 day course of Keflex, prescribed by the [facility] ER, treated with Unasyn for 2 days and discharged on Augmentin to complete a 5 day course, admitted on June 28 after he was referred to the emergency room by Podiatry because of increasing pain, swelling and erythema of the right foot. On admission he was afebrile. Laboratory data revealed a white blood cell count of 13,000, ESR 64, BUN/creatinine 26 and 1.4, with normal liver enzymes, INR 1.39/ PTT 29. X-ray of the right foot revealed soft tissue swelling around the first MTP joint with no evidence of osteomyelitis. He was followed off antibiotics and was taken to the OR on June 29 for an I&D of the right foot and drainage of a plantar space abscess. He was begun on Unasyn postop. He was febrile to 100.6 overnight. At present he notes some discomfort in the right foot but states it has decreased from yesterday. Allergies/Medications Allergies: Coded Allergies: STATINS (MYALGIAS 08/21/17) melatonin (NIGHTMARES 08/21/17) varenicline (From CHANTIX) (NIGHTMARES 08/21/17) Home Med List: Amlodipine (Norvasc) 2.5 MG TABLET 1 TAB PO DAILY BP (Reported) Aspirin (Ecotrin*) 81 MG TABLET.DR 1 TAB PO DAILY HEART HEALTH (Reported) Glyburide/Metformin HCl (Glyburide-Metformin 5-500 MG) 5 MG-500 MG TABLET 1 TAB PO BID DM (Reported) Olmesartan Medoxomil (Benicar) (Unknown Strength) TABLET (Unknown Dose) PO DAILY BP (Reported) Silver Sulfadiazine (Silvadene) 1 % CREAM..G. 1 JEANINE TOP DAILY diabetes ulcer apply to affected area(s). Past History Travel History Traveled to [place] past 21 day No Medical History Neurological: peripheral neuropathy EENT: NONE Cardiovascular: hypertension Respiratory: COPD, obstructive sleep apnea, pneumonia Gastrointestinal: NONE Hepatic: NONE Renal: probable benign renal mass Musculoskeletal: NONE Psychiatric: bipolar disease, depression, schizophrenia Endocrine: diabetes History of MRSA: No History of VRE: No History of CDIFF: No Isolation History: Standard Surgical History Surgical History: R KNEE REPLACEMENT HERNIA REPAIR Family History Relations & Conditions If Any: GRANDFATHER FH: colon cancer Psychosocial History Where Do You Live? Home Who Do You Live With? self Services at Home: None Primary Language: Swedish Smoking Status: Former Smoker (quit 3 yrs ago; 30pk yr hx) ETOH Use: denies use (2-3 beers; not daily), occasional use Illicit Drug Use: denies illicit drug use Review of Systems Review of Systems All Other Systems: Reviewed and Negative Exam & Diagnostic Data Last 24 Hrs of Vital Signs/I&O Vital Signs Date Time Temp Pulse Resp B/P B/P Pulse O2 O2 Flow FiO2 Mean Ox Delivery Rate 06/30 1535 99.9 87 20 130/70 95 Room Air 06/30 0855 97 112/52 06/30 0657 100.2 97 20 112/52 93 Room Air 06/29 2221 100.6 83 20 140/60 94 Room Air 06/29 1600 98.4 91 20 160/80 94 Room Air Intake & Output 06/30 1600 06/30 0800 06/30 0000 Intake Total 600 600 Output Total 1200 400 Balance -600 200 Intake, IV 300 300 Intake, Oral 300 300 Output, Urine 1200 400 Physical Exam Other Physical Findings: He is awake and alert in no acute distress. He is afebrile. Skin reveals no rash. HEENT exam is negative. Neck is supple with no adenopathy. Lungs are clear. Heart regular rhythm with no murmur. Abdomen is soft, nontender with positive bowel sounds. Back no CVA tenderness. Extremities right foot dressing intact; superficial ulceration on the plantar aspect of his left foot, with no surrounding inflammation; pulses 2+ and equal. Neuro neuropathy both feet. Last 24 Hours of Lab Results: Laboratory Tests 06/29 06/29 0945 0728 Hematology CBC w Diff NO MAN DIFF REQ WBC (4.8 - 10.8 /CUMM) 7.7 RBC (4.70 - 6.10 /CUMM) 3.92 L Hgb (14.0 - 18.0 G/DL) 11.6 L Hct (42 - 52 %) 34.7 L MCV (80.0 - 94.0 FL) 88.6 MCH (27.0 - 31.0 PG) 29.6 MCHC (33.0 - 37.0 G/DL) 33.4 RDW (11.5 - 14.5 %) 13.9 Plt Count (130 - 400 /CUMM) 239 MPV (7.4 - 10.4 FL) 8.9 Gran % (42.2 - 75.2 %) 85.7 H Lymphocytes % (20.5 - 51.1 %) 7.4 L Monocytes % (1.7 - 9.3 %) 5.3 Eosinophils % (0 - 5 %) 1.4 Basophils % (0.0 - 2.0 %) 0.2 Absolute Granulocytes (1.4 - 6.5 /CUMM) 6.6 H Absolute Lymphocytes (1.2 - 3.4 /CUMM) 0.6 L Absolute Monocytes (0.10 - 0.60 /CUMM) 0.4 Absolute Eosinophils (0.0 - 0.7 /CUMM) 0.1 Absolute Basophils (0.0 - 0.2 /CUMM) 0 Urines Urinalysis LIGHT H Urine Color (YEL,AMB,STR) YEL Urine Clarity (CLEAR) HAZY H Urine pH (5.0 - 8.0) 6.0 Ur Specific [place] (1.001 - 1.035) 1.020 Urine Protein (NEG,<30 MG/DL) TRACE H Urine Ketones (NEG) NEG Urine Nitrite (NEG) NEG Urine Bilirubin (NEG) NEG Urine Urobilinogen (0.1 - 1.0 EU/dl) 1.0 Ur Leukocyte Esterase (NEG) NEG Ur Microscopic SEDIMENT EXAMINED Urine RBC (0 - 5 /HPF) RARE Urine WBC (0 - 2 /HPF) RARE Ur Epithelial Cells (NONE,FEW) FEW Urine Bacteria (NEG/NONE) FEW H Granular Casts (NONE /LPF) RARE H Urine Hemoglobin (NEG) NEG Urine Glucose (N MG/DL) NEG 06/29 06/28 06/28 0654 2318 1702 Chemistry Sodium (137 - 145 mmol/L) 134 L Potassium (3.5 - 5.1 mmol/L) 4.8 Chloride (98 - 107 mmol/L) 104 Carbon Dioxide (22 - 30 mmol/L) 21 L Anion Gap (5 - 16) 8 BUN (9 - 20 mg/dL) 16 Creatinine (0.7 - 1.2 mg/dL) 0.8 Estimated GFR (>60 ml/min) > 60 BUN/Creatinine Ratio (7 - 25 %) 20.0 Serum Osmolality Cancelled Lactic Acid Cancelled Urines Urine Color Cancelled Urine Clarity Cancelled Urine pH Cancelled Ur Specific [place] Cancelled Urine Protein Cancelled Urine Ketones Cancelled Urine Nitrite Cancelled Urine Bilirubin Cancelled Urine Urobilinogen Cancelled Ur Leukocyte Esterase Cancelled Ur Microscopic Cancelled Urine Hemoglobin Cancelled Urine Glucose Cancelled Last 24 Hours of Luis Miguel Results: Blood cultures x 2 June 28 negative OR culture June 29 labeled right foot soft tissue positive for alpha strep, Staph aureus, sensitivities pending, and gram-negative rods Diagnostic Data Recent Imaging Findings: X-ray of the right foot June 28 reveals soft tissue swelling around the first MTP joint, with no evidence of osteomyelitis MRI of the right foot June 30 reveals marked soft tissue swelling centered around the first MTP joint; a lobulated low signal process in the plantar soft tissues at the level of the MTP joint, measuring 2.8 x 1.1 x 2.5 cm,; severe first MTP arthritis; no convincing evidence of osteomyelitis Assessment/Plan Assessment/Plan Impression: This is a 67-year-old man with a history of diabetes, treated with 2 course of antibiotics over the past 2 months for cellulitis of the right foot after developing bilateral plantar foot ulcers, admitted on June 28 because of increasing pain, swelling and erythema of the right foot, found to be afebrile with a mild leukocytosis, now status post I&D of the right foot and drainage of a plantar space abscess, with no evidence for extension to bone and with his MRI negative for osteomyelitis. His clinical picture is worrisome for osteomyelitis but his wound did not appear to extend to the bone in the OR and his MRI is negative for any bone involvement ; therefore, based on these findings, he should not require a prolonged course of IV antibiotics. His MRI does reveal a severe first MTP arthritis, raising concern for the possibility of a septic joint or gouty arthritis, and further evaluation for these may need to be considered. His OR culture is positive for multiple organisms, including Staph aureus, which may prove to be MRSA given his previous antibiotics, and gram-negative rods, but, as he is stable, he can be continued on Unasyn pending final cultures. He is scheduled for a return to the OR later this week for further debridement and possible wound closure and, as discussed with Podiatry, further evaluation for a possible septic MTP arthritis can be pursued at that time. Suggestion: 1. Would check a uric acid 2. Await return to the OR later this week for further debridement, possible aspiration of the first MTP joint and possible wound closure 3. Follow-up final OR culture 4. Continue Unasyn pending above Yaneth Dolan MD will be covering until July 13 Consult Acknowledgment - Thank you for your consult request.
[2018-06-30 17:17] LABS: ABSOLUTE BASOPHIL COUNT 0 /CUMM (0.0-0.2); ABSOLUTE EOSINOPHIL COUNT 0 /CUMM (0.0-0.7); ABSOLUTE LYMPH COUNT 0.5 /CUMM (1.2-3.4); ABSOLUTE MONOCYTE COUNT 0.8 /CUMM (0.10-0.60); BASOPHIL % 0 % (0.0-2.0); EOSINOPHIL % 0.1 % (0-5); HEMATOCRIT 30.7 % (42-52); MEAN CORPUSCULAR HGB 29.5 PG (27.0-31.0); MEAN CORPUSCULAR HGB CONC 34.1 G/DL (33.0-37.0); MEAN CORPUSCULAR VOLUME 86.7 FL (80.0-94.0); MEAN PLATELET VOLUME 8.4 FL (7.4-10.4); PLATELET COUNT 223 /CUMM (130-400); RED BLOOD CELL CT 3.54 /CUMM (4.70-6.10); WHITE BLOOD CELL COUNT 9.3 /CUMM (4.8-10.8)
[2018-06-30 22:39] VITALS: BP 110/64
[2018-07-01 06:51] VITALS: BP 110/66
--- NOTE | 2018-07-01 07:27 | PN- Housestaff ---
Newton Monahan 07/01/18 0727: Subjective Follow-up For: Right foot cellulitis Complaints: no complaints Subjective: Patient was examined bedside while he was lying down he said that he was doing better and has no complaints. He asked about the possibility of OR tomorrow. He was informed about the MRI results and the culture positivity for staph aureus. And about continuing of Unasyn as discussed with Dr. Reddy. Patient asked about the possibility of osteomyelitis and was told that the MRI result said it it was a low possibility of osteomyelitis. Review of Systems Constitutional: Denies: chills, diaphoresis, fever, malaise, weakness, unexplained weight loss. Cardiovascular: Denies: chest pain, edema, orthopena, palpitations, peripheral edema, syncope. Respiratory: Denies: cough, hemoptysis, orthopnea, short of breath, sputum production, stridor, wheezing. Gastrointestinal: Denies: abdominal pain, constipation, diarrhea. Genitourinary: Denies: discharge, dysuria, frequency, hematuria, hesitation, nocturia, pain, urgency. Musculoskeletal: Reports: joint pain, joint swelling. Denies: back pain, gout, muscle pain, muscle stiffness, neck pain. Objective Last 24 Hrs of Vital Signs/I&O Vital Signs Date Time Temp Pulse Resp B/P B/P Pulse O2 O2 Flow FiO2 Mean Ox Delivery Rate 07/01 0825 70 130/84 07/01 0651 98.6 69 20 110/66 94 Room Air 06/30 2239 99.2 65 18 110/64 95 Room Air 06/30 1535 99.9 87 20 130/70 95 Room Air Intake & Output 07/01 1600 07/01 0800 07/01 0000 Intake Total 225 225 Output Total Balance 225 225 Intake, IV 125 125 Intake, Oral 100 100 Patient 194 lb Weight Physical Exam General Appearance: Alert, Oriented X3, Cooperative, No Acute Distress Cardiovascular: Regular Rate, No Murmurs Lungs: Clear to Auscultation, Normal Air Movement Abdomen: Normal Bowel Sounds, Soft, No Tenderness, No Hepatospenomegaly, No Masses Neurological: Normal Speech, Strength at 5/5 X4 Ext, Normal Tone, Sensation Intact Extremities: rigth foot is dressed up, No discharge seen over the dressing. Right hand has ulnar deviation of 4th and 5th digits Current Medications: Current Medications Sig/Satnam Start time Last Medication Dose Route Stop Time Status Admin Acetaminophen 650 MG Q6P PRN 06/28 2315 AC 06/30 PO 0647 Amlodipine Besylate 2.5 MG DAILY 06/29 09 AC 07/01 PO 0825 Ampicillin Sodium/ 3,000 MG Q6 06/29 1800 AC 07/01 Sulbactam Sodium IV 0601 Sodium Chloride 100 ML Aspirin Buffered 81 MG DAILY 06/29 09 DC 07/01 PO 0825 Heparin Sodium 5,000 UNIT Q8 06/29 0600 AC 07/01 (Porcine) SC 0601 Insulin Aspart 0 TIDAC 06/30 08 AC 07/01 SC 0825 Oxycodone/ 1 TAB Q6P PRN 06/28 2315 AC 07/01 Acetaminophen PO 0824 Last 24 Hrs of Lab/Luis Miguel Results Last 24 Hrs of Labs/Mics: Laboratory Tests 07/01/18 0820: Anion Gap 12, Estimated GFR > 60, BUN/Creatinine Ratio 17.5, Serum Osmolality Pending 06/30/18 1730: Uric Acid Cancelled 06/30/18 1628: Anion Gap 11, Estimated GFR > 60, BUN/Creatinine Ratio 17.5, Uric Acid 5.1, CBC w Diff NO MAN DIFF REQ, RBC 3.54 L, MCV 86.7, MCH 29.5, MCHC 34.1, RDW 14.0, MPV 8.4, Gran % 86.0 H, Lymphocytes % 5.4 L, Monocytes % 8.5, Eosinophils % 0.1, Basophils % 0, Absolute Granulocytes 8.0 H, Absolute Lymphocytes 0.5 L, Absolute Monocytes 0.8 H, Absolute Eosinophils 0, Absolute Basophils 0 Assessment/Plan Assessment: 67 year old male with PMH schizoaffective disorder, h/o substance abuse, DM, COPD, renal mass, HTN is admitted to the Gen Med service at the request of Dr. Carrion for admission with R foot infection. Patient was recently hospitalized at [place] 05/19-05/21 for right foot infection; tx with IV abx then discharged with PO abx: Augmentin for 5 days. Patient reports he completed this tx plan and his symptoms improved. He performs daily wound care with Silvadene and xeroform and has a visiting RN on [facility]. He states about 2 weeks ago he noticed his wound getting red and RLE becoming swollen. He reports a pink drainage from wound and no associated pain. He states his glucose at home has been between 130-160. Patient to be admitted to general medicine service for further care of the following: Problem List: 1. Cellulitis RLE 2. Chronic wounds RLE and LLE: ?osteomyelitis 3. Hyponatremia 4. Hyperkalemia 5. SHAYLA Plan- -MRI ruled out osteomyelitis and demonstrated soft tissue involvement along with arthritis of the first MTP joint of the right foot. There is a arthritis change in the head of the 1st metatarsal bone, that is confusing with osteomyelitis changes however there is no involucrum seen on MRI. Hence suggesting soft tissue infection, probably cellulitis. -follow up Podiatry note -Soft tissue culture grew staph aureus - Uric acid negative, but will aspirate first metatarsophalangeal joint tomorrow during the OR procedure to rule out gout -Ihsan Reddy MD suggested to continue Unasyn until the OR cultures from tomorrow come back negative. -Follow-up uric acid levels, -Scheduled for the OR for further debridement tomorrow, follow-up on the culture -Continue home medications Problem List: 1. Cellulitis Pain Ratin Pain Location: foot Pain Goal: Remain pain free Pain Plan: percocet Tomorrow's Labs & Rationales: none Meng Kumar 07/01/18 1306: Attending MD Review Statement Attending Statement Attending MD Statement: examined this patient, discuss w/resident/PA/BEE RAISER, agreed w/resident/PA/BEE RAISER, discussed with family, reviewed EMR data (avail), discussed with nursing, discussed with case mgmt, reviewed images, amended to note Attending Assessment/Plan: 67M PMH type 2 DM, hypertension, schizoaffectiive disorder, opiate dependancy presenting with right foot ulcer sent by PCP s/p debridement and wound culture sent for culture/gram stain grwoing polymicrobial. 1. Right foot cellulitis 2. Right diabetic foot ulcer exposing fat layer s/p debridement 3. SHAYLA resolved 4. Hyponatremia with improvement 5. Leukocytosis 6. DM Plan - c/w iv abx. ID appreciated Follow wound cultures from OR. - MRI foot without evidence of osteomyelitis - Podiatry f/u for wound closure possible tomorrow. NPo after MN. - IV hydration, hold blood thinners in am - Continue home medications - DVT PPx Plan of care dwed patient bedside.
[2018-07-01 14:15] VITALS: BP 132/80
--- NOTE | 2018-07-01 16:37 | PN- Infect Dx ---
Subjective Subjective: No fever; R foot discomfort; improved w/ pain medication. Review of Systems Comments: 12 points reviewed as noted, otherwise negative. Objective Last 24 Hrs of Vital Signs/I&O Vital Signs Date Time Temp Pulse Resp B/P B/P Pulse O2 O2 Flow FiO2 Mean Ox Delivery Rate 07/01 1415 97.7 72 20 132/80 95 Room Air 07/01 0825 70 130/84 07/01 0651 98.6 69 20 110/66 94 Room Air 06/30 2239 99.2 65 18 110/64 95 Room Air Intake & Output 07/01 1600 07/01 0800 07/01 0000 Intake Total 600 225 225 Output Total Balance 600 225 225 Intake, IV 125 125 Intake, Oral 600 100 100 Number 1 Bowel Movements Patient 194 lb Weight Physical Exam Other Physical Findings: Gen: wake and alert in no acute distress. He is afebrile. Skin reveals no rash. HEENT exam is negative. Neck is supple with no adenopathy. Lungs are clear. Heart regular rhythm with no murmur. Abdomen is soft, nontender with positive bowel sounds. Back no CVA tenderness. Extremities right foot dressing intact; superficial ulceration on the plantar aspect of his left foot, with no surrounding inflammation; pulses 2+ and equal. Neuro neuropathy both feet. Results Last 24 Hours of Lab Results: Laboratory Tests 07/01 06/30 0820 1730 Chemistry Sodium (137 - 145 mmol/L) 132 L Potassium (3.5 - 5.1 mmol/L) 4.5 Chloride (98 - 107 mmol/L) 95 L Carbon Dioxide (22 - 30 mmol/L) 25 Anion Gap (5 - 16) 12 BUN (9 - 20 mg/dL) 14 Creatinine (0.7 - 1.2 mg/dL) 0.8 Estimated GFR (>60 ml/min) > 60 BUN/Creatinine Ratio (7 - 25 %) 17.5 Serum Osmolality (285 - 295 MOSM/KG) 286 Uric Acid Cancelled Last 24 Hours of Luis Miguel Results: #: [id number] LENY: 06/29/181050 STATUS: COMP RECD: 06/29/[address]: Saji Carrion DPM SOURCE: EXTREMITIE ENTR: 06/29/18[address]: Shalonda JOHNSON,Kyle SPDESC: LUDWIG Kumar MD,Meng Louis MD,Mildred Waite ORDERED: XTRMOR COMMENT: ADDITIONAL INFORMATION: SOFT TISSUE RIGHT FOOT FOR CULTURE RECEIVED FEW SOFT TISSUE PIECES IN STERILE CUP Procedure Result > GRAM STAIN Final 06/30/18-1300 WHITE BLOOD CELLS RARE GRAM POSITIVE COCCI MANY > EXTREMITIES OR SPECIMEN Final 07/01/18-1436 Scant growth of 1.PROTEUS MIRABILIS Heavy growth of: 2.ALPHA STREP 3.STAPH AUREUS ISOLATED NOTE THIS IS A PRELIMINARY REPORT: IF: patient has had significant exposure to a healthcare setting in the past three (3) months, Recent Imaging Studies: MRI IMPRESSION: 1. Marked soft tissue swelling of the centered on the 1st MTP joint. Plantar skin ulceration in the region of the MTP joint. There is edema in the soft tissues, which may reflect cellulitis. 2. There is a lobulated low T2, intermediate low T1 signal in the plantar soft tissues at the level of the MTP joint measuring 2.8 x 1.1 x 2.5 cm. Question subtle calcification on the x-ray. Differential considerations include calcification with differential consideration including gout, nonspecific crystal deposition disease. Other possible differentials for low signal MRI would include fibrous or hemorrhagic changes secondary to infection. Clinical correlation is needed. 3. 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 Small to moderate complex effusion, with internal low signal foci which may reflect synovitis/debris. Differential consideration include degenerative, inflammatory arthropathy, with septic arthritis not entirely excluded. Clinically correlate. Joint aspiration can be obtained as clinically warranted. 4. No convincing evidence of osteomyelitis. 5. Mild tenosynovitis of the 1st toe flexor tendon. DICTATED BY: Paxton Mensah MD DATE/TIME DICTATED:06/30/181327 COUNTER SALES REPRESENTATIVE:SALOMON DATE/TIME TRANSCRIBED:06/30/181327 Assessment/Plan ID Impression: This is a 67-year-old man with a history of diabetes, treated with 2 course of antibiotics over the past 2 months for cellulitis of the right foot after developing bilateral plantar foot ulcers, admitted on June 28 because of increasing pain, swelling and erythema of the right foot, found to be afebrile with a mild leukocytosis, now status post I&D of the right foot and drainage of a plantar space abscess, with no evidence for extension to bone and with his MRI negative for osteomyelitis. His clinical picture is worrisome for osteomyelitis but his wound did not appear to extend to the bone in the OR and his MRI is negative for any bone involvement ; therefore, based on these findings, he should not require a prolonged course of IV antibiotics. His MRI does reveal a severe first MTP arthritis, raising concern for the possibility of a septic joint or gouty arthritis, and further evaluation for these may need to be considered. His OR culture is positive for multiple organisms, including Staph aureus, which may prove to be MRSA given his previous antibiotics, and gram-negative rods, but, as he is stable, he can be continued on Unasyn pending final cultures. He is scheduled for a return to the OR later this week for further debridement and possible wound closure and, as discussed with Podiatry, further evaluation for a possible septic MTP arthritis can be pursued at that time. Suggestion: 1. Await return to the OR tomorrow for further debridement, possible aspiration of the first MTP joint and possible wound closure 2. Follow-up final OR culture 3. Continue Unasyn pending above
[2018-07-01 22:25] VITALS: BP 152/82
[2018-07-02 06:43] VITALS: BP 110/60
--- NOTE | 2018-07-02 07:25 | PN- Housestaff ---
See Addendum Subjective Follow-up For: Right foot cellulitis Subjective: Patient was seen and examine at bedside. The son was at the bedside. He was concerned about the apperance of the wound on the patient's foot. He was reassured the Toll Collector Supervisor would take care of it during the re-explortion surgery later today. The son wanted to be called and updated about the patient post the OR procedure instead of his brother who apparently has lately been caught up with work. The patient consented. The patient denies fever, chills, nausea, vomiting. Review of Systems Constitutional: Reports: see HPI. Objective Last 24 Hrs of Vital Signs/I&O Vital Signs Date Time Temp Pulse Resp B/P B/P Pulse O2 O2 Flow FiO2 Mean Ox Delivery Rate 07/02 0643 99.6 64 20 110/60 93 07/01 2225 98.1 70 20 152/82 94 Room Air 07/01 1600 Room Air 07/01 1415 97.7 72 20 132/80 95 Room Air Intake & Output 07/02 1600 07/02 0800 07/02 0000 Intake Total 600 575 Output Total 1200 Balance -600 575 Intake, IV 600 225 Intake, Oral 350 Output, Urine 1200 Physical Exam General Appearance: Alert, Oriented X3, Cooperative, No Acute Distress Skin: No Rashes, No Breakdown Neck: Supple Cardiovascular: Regular Rate, Normal S1, Normal S2 Lungs: Clear to Auscultation, Normal Air Movement Abdomen: Normal Bowel Sounds, Soft, No Tenderness Extremities: right foot covered in dressing Assessment/Plan Assessment: 67 year old male with PMH schizoaffective disorder, h/o substance abuse, DM, COPD, renal mass, HTN is admitted to the Gen Med service at the request of Dr. Carrion for admission with R foot infection. Patient was recently hospitalized at [place] 05/19-05/21 for right foot infection; tx with IV abx then discharged with PO abx: Augmentin for 5 days. Patient reports he completed this tx plan and his symptoms improved. He performs daily wound care with Silvadene and xeroform and has a visiting RN on [facility]. He states about 2 weeks ago he noticed his wound getting red and RLE becoming swollen. He reports a pink drainage from wound and no associated pain. He states his glucose at home has been between 130-160. Patient to be admitted to general medicine service for further care of the following: Problem List: 1. Cellulitis RLE 2. Chronic wounds RLE and LLE: ?osteomyelitis 3. Hyponatremia 4. Hyperkalemia 5. SHAYLA Plan- -MRI ruled out osteomyelitis and demonstrated soft tissue involvement along with arthritis of the first MTP joint of the right foot. There is a arthritis change in the head of the 1st metatarsal bone, that is confusing with osteomyelitis changes however there is no involucrum seen on MRI. Hence suggesting soft tissue infection, probably cellulitis. -follow up Podiatry note -Wound culture isolated heavy growth of Staph aureus alongwith scant growth of Proteus mirabilis - Uric acid 5.1, but will aspirate first metatarsophalangeal joint today during the OR procedure to rule out gout -ID consult appreciated. Would continue Unasyn until further orders -Scheduled for the OR for further debridement today, follow-up on the culture -Continue home medications DVT prophylaxis: Heparin Code status: DNR/DNI Problem List: 1. Diabetic neuropathy 2. Neuropathic diabetic ulcer of foot 3. Cellulitis of right foot Pain Ratin Pain Location: none Pain Goal: Remain pain free Pain Plan: pathway Tomorrow's Labs & Rationales: cbc and bep
--- NOTE | 2018-07-02 08:17 | PN- Student ---
See Addendum Subjective Subjective: Patient is a 67-year-old male with PMH of schizoaffective disorder, diabetes, COPD, renal mass, HTN and h/o substance abuse presenting to ED 4 days ago with R foot cellulitis. Patient reports doing well. However, he complains of off white drainage within his dressing. Afebrile and minimal pain noted. He is scheduled to return to OR for second debridement and possible closure today. Patient is stable on IV Unasyn 3000mg. Patient denies fever, chills, abdominal pain, n/v/d, chest pain, peripheral edema, SOB, and abdominal pain. Patient is NPO for surgery. Review of Systems Constitutional: denies fever, chills, headache, fatigue, unintentional weight loss HEENT: denies hearing, visual changes. Cardiovascular: denies chest pain, heart palpitations, peripheral edema. Respiratory: denies shortness of breath, or cough GI/: denies abdominal pain, changes in urinary or bowel movement. Musculoskeletal: possible h/o undiagnosed rheumatoid arthritis on digits on right hand Skin: See HPI. Off white draining within dressing reported Neurological/Psychological: reports symptoms of schizoaffective disorder Objective Objective: Vital Signs Date Time Temp Pulse Resp B/P B/P Pulse O2 O2 Flow FiO2 Mean Ox Delivery Rate 07/02 0643 99.6 64 20 110/60 93 / 2225 98.1 70 20 152/82 94 Room Air 07/01 1600 Room Air 07/01 1415 97.7 72 20 132/80 95 Room Air 07/01 0825 70 130/84 Physical Exam General Appearance Alert, Oriented X3, Cooperative, No Acute Distress Skin Temp/Moisture Exam: Warm/Dry HEENT: not ellicited Cardiovascular/lungs not ellicited Abdomen not ellicited Derm: R foot covered with dressing. Visible opaque drainage within the dressing. Assessment/Plan Assessment: Patient is a 67-year-old male with PMH of schizoaffective disorder, diabetes, COPD, renal mass, HTN and h/o substance abuse presenting with R foot cellulitis. Stable on Unasyn 3000mg. MRI scan negative for osteomyelitis and positive for first MTP arthritis. OR culture positive for multiple organisms, including staph aureus, and gram negative rods. These results raise suspicions for first MTP septic arthritis. Plan: - Continue NPO for today's procedure - Debridement and possible closure procedure today - Continue IV Unasyn until final OR culture result comes back - Continue vitals and drainage check from dressing
[2018-07-02 09:20] LABS: ABSOLUTE BASOPHIL COUNT 0 /CUMM (0.0-0.2); ABSOLUTE EOSINOPHIL COUNT 0 /CUMM (0.0-0.7); ABSOLUTE GRANULOCYTE CT 5.8 /CUMM (1.4-6.5); ABSOLUTE LYMPH COUNT 0.9 /CUMM (1.2-3.4); ABSOLUTE MONOCYTE COUNT 0.7 /CUMM (0.10-0.60); BASOPHIL % 0.4 % (0.0-2.0); EOSINOPHIL % 0.3 % (0-5); HEMATOCRIT 32.8 % (42-52); MEAN CORPUSCULAR HGB 29.3 PG (27.0-31.0); MEAN CORPUSCULAR HGB CONC 33.3 G/DL (33.0-37.0); MEAN CORPUSCULAR VOLUME 87.9 FL (80.0-94.0); MEAN PLATELET VOLUME 8.2 FL (7.4-10.4); PLATELET COUNT 252 /CUMM (130-400); RBC DISTRIBUTION WIDTH 14.4 % (11.5-14.5); RED BLOOD CELL CT 3.73 /CUMM (4.70-6.10); WHITE BLOOD CELL COUNT 7.5 /CUMM (4.8-10.8)
[2018-07-02 09:30] LABS: PT 16.4 SEC (9.4-12.5)
--- NOTE | 2018-07-02 11:56 | PN- Infect Dx ---
Subjective Subjective: Pain R foot. No fever; SS drainage plantar aspect R foot. Review of Systems Comments: 12 points reviewed as noted, otherwise negative. Objective Last 24 Hrs of Vital Signs/I&O Vital Signs Date Time Temp Pulse Resp B/P B/P Pulse O2 O2 Flow FiO2 Mean Ox Delivery Rate 07/02 0941 74 120/82 07/02 0643 99.6 64 20 110/60 93 07/01 2225 98.1 70 20 152/82 94 Room Air 07/01 1600 Room Air 07/01 1415 97.7 72 20 132/80 95 Room Air Intake & Output 07/02 1600 07/02 0800 07/02 0000 Intake Total 600 575 Output Total 1200 Balance -600 575 Intake, IV 600 225 Intake, Oral 350 Output, Urine 1200 Physical Exam Other Physical Findings: Gen: wake and alert in no acute distress. He is afebrile. Skin reveals no rash. HEENT exam is negative. Neck is supple with no adenopathy. Lungs are clear. Heart regular rhythm with no murmur. Abdomen is soft, nontender with positive bowel sounds. Back no CVA tenderness. Extremities right foot dressing intact; superficial ulceration on the plantar aspect of his left foot, with SS drainage soaked into the dressing; pulses 2+ and equal. Neuro neuropathy both feet. Results Last 24 Hours of Lab Results: Laboratory Tests 07/02 0847 Chemistry Sodium (137 - 145 mmol/L) 134 L Potassium (3.5 - 5.1 mmol/L) 4.6 Chloride (98 - 107 mmol/L) 95 L Carbon Dioxide (22 - 30 mmol/L) 29 Anion Gap (5 - 16) 10 BUN (9 - 20 mg/dL) 11 Creatinine (0.7 - 1.2 mg/dL) 0.8 Estimated GFR (>60 ml/min) > 60 BUN/Creatinine Ratio (7 - 25 %) 13.8 Coagulation PT (9.4 - 12.5 SEC) 16.4 H INR (0.90 - 1.17) 1.50 H Hematology CBC w Diff NO MAN DIFF REQ WBC (4.8 - 10.8 /CUMM) 7.5 RBC (4.70 - 6.10 /CUMM) 3.73 L Hgb (14.0 - 18.0 G/DL) 10.9 L Hct (42 - 52 %) 32.8 L MCV (80.0 - 94.0 FL) 87.9 MCH (27.0 - 31.0 PG) 29.3 MCHC (33.0 - 37.0 G/DL) 33.3 RDW (11.5 - 14.5 %) 14.4 Plt Count (130 - 400 /CUMM) 252 MPV (7.4 - 10.4 FL) 8.2 Gran % (42.2 - 75.2 %) 78.0 H Lymphocytes % (20.5 - 51.1 %) 11.8 L Monocytes % (1.7 - 9.3 %) 9.5 H Eosinophils % (0 - 5 %) 0.3 Basophils % (0.0 - 2.0 %) 0.4 Absolute Granulocytes (1.4 - 6.5 /CUMM) 5.8 Absolute Lymphocytes (1.2 - 3.4 /CUMM) 0.9 L Absolute Monocytes (0.10 - 0.60 /CUMM) 0.7 H Absolute Eosinophils (0.0 - 0.7 /CUMM) 0 Absolute Basophils (0.0 - 0.2 /CUMM) 0 Last 24 Hours of Luis Miguel Results: SPEC #: [id number] LENY: 06/29/18 STATUS: COMP RECD: 06/29/[address]: Saji Carrion DPM [facility] 06/29/18-1118 [facility] DR: Kyle Liz MD SPDESC: LUDWIG Kumar MD,Meng Louis MD,Mildred Waite ORDERED: XTRMOR COMMENT: ADDITIONAL INFORMATION: SOFT TISSUE RIGHT FOOT FOR CULTURE RECEIVED FEW SOFT TISSUE PIECES IN STERILE CUP Procedure Result > GRAM STAIN Final 06/30/18-1300 WHITE BLOOD CELLS RARE GRAM POSITIVE COCCI MANY > EXTREMITIES OR SPECIMEN Final 07/01/18-1436 Scant growth of 1.PROTEUS MIRABILIS Heavy growth of: 2.ALPHA STREP 3.STAPH AUREUS ISOLATED NOTE THIS IS A PRELIMINARY REPORT: IF: patient has had significant exposure to a healthcare setting in the past three (3) months, THEN: suspect Methicillin Resistant Staph aureus and place patient on Contact precautions PENDING susceptibility results TO FOLLOW Called to/Readback by DR CARRION by [facility] 06/30/18 1200 P.mirabili Staph ariana RX AB RX AB ------ -- ------ -- AMPICILLIN S CEFAZOLIN S S AMOX/CLAV AUGM S S AMP/SULB-UNASYN S S CIPROFLOXACIN S GENTAMICIN S TETRACYCLINE S TRIMETH/SULFA S S AZITHROMYCIN S CLINDAMYCIN S ERYTHROMYCIN S OXACILLIN S VANCOMYCIN S 1. PROTEUS MIRABILIS RX AB ------ -- AMPICILLIN S CEFAZOLIN S AMOXICILLIN/CLAVULINIC ACID S AMPICILLIN/SULBACTAM S CIPROFLOXACIN S GENTAMICIN S TRIMETHOPRIM/SULFAMETHOXAZOLE S 3. STAPH AUREUS RX AB ------ -- CEFAZOLIN S AMOXICILLIN/CLAVULINIC ACID S AMPICILLIN/SULBACTAM S TETRACYCLINE S TRIMETHOPRIM/SULFAMETHOXAZOLE S AZITHROMYCIN S CLINDAMYCIN S ERYTHROMYCIN S OXACILLIN S VANCOMYCIN S Recent Imaging Studies: Reviewed Assessment/Plan ID Impression: This is a 67-year-old man with a history of diabetes, treated with 2 course of antibiotics over the past 2 months for cellulitis of the right foot after developing bilateral plantar foot ulcers, admitted on June 28 because of increasing pain, swelling and erythema of the right foot, found to be afebrile with a mild leukocytosis, now status post I&D of the right foot and drainage of a plantar space abscess, with no evidence for extension to bone and with his MRI negative for osteomyelitis. His clinical picture is worrisome for osteomyelitis but his wound did not appear to extend to the bone in the OR and his MRI is negative for any bone involvement ; therefore, based on these findings, he should not require a prolonged course of IV antibiotics. His MRI does reveal a severe first MTP arthritis, raising concern for the possibility of a septic joint or gouty arthritis, and further evaluation for these may need to be considered. His OR culture is positive for multiple organisms, including Staph aureus (MSSA) and Proteus, all susceptible to Unasyn. Awaits return to the OR today for further debridement and, as discussed with Podiatry by Dr. Reddy, further evaluation for a possible septic MTP arthritis can be pursued at this time. Suggestion: 1. Awaiting OR for further debridement/repeat local cx, possible aspiration of the first MTP joint and possible wound closure 2. Continue Unasyn 3 gm q 6 h started 06/29 (D #4). 3. CBC, BMP, ESR in am.
[2018-07-02 13:31] VITALS: BP 126/74
--- NOTE | 2018-07-02 15:38 | Operative Report ---
Operative/Inv Procedure Report Surgery Date: 07/02/18 Name of Procedure: 1 open incision and drainage deep to the deep fascia with exposure of the extensor and flexor tendons and tendon sheath multiple sites right foot 2 intraoperative application of negative pressure wound therapy 3 intraoperative administration of ankle block anesthesia 4 excisional debridement Pre-Operative Diagnosis: 1 plantar space abscess right foot 2 septic arthritis right foot Post-Operative Diagnosis: The same Estimated Blood Loss: less than 50ml Surgeon/Oil Spreader Operator: ROHAN PARISH DPM Anesthesia: moderate sedation, block Operative/Procedure Note Note: After obtaining informed consent the patient was brought to the operating room and placed on the operating table in the supine position. The patient was then securely fastened to the operating table utilizing a safety belt. After administration of IV sedation, 10 cc of the 0.5% Marcaine plain was infiltrated about the patient's right ankle. The right foot and ankle were then scrubbed, prepped and draped in the usual aseptic manner. Attention directed plantar aspect of the right foot, where a large full-thickness necrotic was identified. A 15 blade was utilized sharply via skin margins. The dissection was then carried down deep to the deep fascia with exposure of the extensor and flexor tendon and tendon sheath multiple sites, both proximally and distally. All necrotic, nonviable and infected tissue was sharply evacuated from the wound bed. Specimen was sent for both microbiologic and pathologic inspection. Included in this was intra-articular specimen. The open wound was then irrigated with 3 L of normal sterile saline infused with 50,000 units of bacitracin. Following this, the foot was redraped and the surgeon's operative transfer clinic was. Any bleeding vessels identified were cauterized or ligated as encountered. Next, negative pressure wound therapy was placed followed by the application of Kerlix and an Toño wrap. Patient was noted to tolerate the procedure and anesthesia well and the patient was transported from the operating room to recovery with vital signs stable.
[2018-07-02 17:04] VITALS: BP 118/64
[2018-07-02 21:30] VITALS: BP 130/64
--- NOTE | 2018-07-03 02:45 | PN- Housestaff ---
See Addendum Subjective Follow-up For: Right foot ulcer Subjective: Patient was seen and examined at bedside. He is post op Day 1 re-exploration surgery on the right foot. The patient denies fever, chills, nausea, vomiting, chest pain or SOB. Review of Systems Constitutional: Reports: see HPI. Objective Last 24 Hrs of Vital Signs/I&O Vital Signs Date Time Temp Pulse Resp B/P B/P Pulse O2 O2 Flow FiO2 Mean Ox Delivery Rate 07/02 2130 98.5 68 20 130/64 93 07/02 1704 98.0 62 20 118/64 93 07/02 1331 98.1 62 18 126/74 99 07/02 0941 74 120/82 07/02 0643 99.6 64 20 110/60 93 Intake & Output 07/03 0800 07/03 0000 07/02 1600 Intake Total 1075 525 Output Total 300 Balance 1075 225 Intake, IV 375 Intake, Oral 1075 150 Output, Urine 300 Physical Exam General Appearance: Alert, Oriented X3, Cooperative, No Acute Distress Neck: Supple Cardiovascular: Regular Rate, Normal S1, Normal S2, No Murmurs Lungs: Clear to Auscultation, Normal Air Movement Abdomen: Normal Bowel Sounds, Soft, No Tenderness Extremities: right foot wound dressed post op Assessment/Plan Assessment: 67 year old male with PMH schizoaffective disorder, h/o substance abuse, DM, COPD, renal mass, HTN is admitted to the Gen Med service at the request of Dr. Carrion for admission with R foot infection. Patient was recently hospitalized at [place] 05/19-05/21 for right foot infection; tx with IV abx then discharged with PO abx: Augmentin for 5 days. Patient reports he completed this tx plan and his symptoms improved. He performs daily wound care with Silvadene and xeroform and has a visiting RN on [facility]. He states about 2 weeks ago he noticed his wound getting red and RLE becoming swollen. He reports a pink drainage from wound and no associated pain. He states his glucose at home has been between 130-160. Patient to be admitted to general medicine service for further care of the following: Problem List: 1. Cellulitis RLE 2. Chronic wounds RLE and LLE: ?osteomyelitis 3. Hyponatremia 4. Hyperkalemia 5. SHAYLA Plan- -MRI ruled out osteomyelitis and demonstrated soft tissue involvement along with arthritis of the first MTP joint of the right foot. There is a arthritis change in the head of the 1st metatarsal bone, that is confusing with osteomyelitis changes however there is no involucrum seen on MRI. Hence suggesting soft tissue infection, probably cellulitis. -Patient is post op Day 1 the following proceudure: 1 open incision and drainage deep to the deep fascia with exposure of the extensor and flexor tendons and tendon sheath multiple sites right foot 2 intraoperative application of negative pressure wound therapy 3 intraoperative administration of ankle block anesthesia 4 excisional debridement -Wound culture isolated heavy growth of Staph aureus alongwith scant growth of Proteus mirabilis - Uric acid 5.1, but will aspirate first metatarsophalangeal joint today during the OR procedure to rule out gout -ID consult appreciated. Would continue Unasyn until further orders -CBC, BEP and ESR in the AM -Continue home medications DVT prophylaxis: Heparin Code status: DNR/DNI Problem List: 1. Cellulitis of right foot 2. Diabetic neuropathy 3. Alcohol abuse 4. Neuropathic diabetic ulcer of foot Pain Ratin Pain Location: right foot Pain Goal: Pain 4 or less Pain Plan: pathway Tomorrow's Labs & Rationales: cbc, bep and esr
--- NOTE | 2018-07-03 02:47 | Discharge Summary ---
See Addendum Visit Information Visit Dates Admission Date: 06/28/18 Discharge Date: 07/08/2018 Hospital Course Course Attending Physician: Woody JOHNSON,Braydon Hodge Primary Care Physician: Mildred Louis MD Hospital Course: 67 year old male with PMH schizoaffective disorder, h/o substance abuse, DM, COPD, renal mass, HTN was admitted to [facility] for right foot cellulitis. VS on admission T99.1 P90 RR18 BP103/69 Sat95%RA Labs: WBC 12.7 H/H 11.9/34.8 Plt 276 Na 129 K5.4 BUN/Cr 26/1.4 Glu 167 LA 1.5 LFTs WNL Trop negative Albumin 4.0 INR 1.39 Blood cultures came back sterile. XR right foot: IMPRESSION: Soft tissue swelling around the first MTP joint continues to increase. There is no radiographic evidence for osteomyelitis, there is no bone destruction. 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 MRI right foot IMPRESSION: 1. Marked soft tissue swelling of the centered on the 1st MTP joint. Plantar skin ulceration in the region of the MTP joint. There is edema in the soft tissues, which may reflect cellulitis. 2. There is a lobulated low T2, intermediate low T1 signal in the plantar soft tissues at the level of the MTP joint measuring 2.8 x 1.1 x 2.5 cm. Question subtle calcification on the x-ray. Differential considerations include calcification with differential consideration including gout, nonspecific crystal deposition disease. Other possible differentials for low signal MRI would include fibrous or hemorrhagic changes secondary to infection. Clinical correlation is needed. 3. 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 Small to moderate complex effusion, with internal low signal foci which may reflect synovitis/debris. Differential consideration include degenerative, inflammatory arthropathy, with septic arthritis not entirely excluded. Clinically correlate. Joint aspiration can be obtained as clinically warranted. 4. No convincing evidence of osteomyelitis. 5. Mild tenosynovitis of the 1st toe flexor tendon. He was evaluated and treated for the following problems while in the hospital 1. Right foot cellulitis -The patient was started on Unasyn - An open incision and drainage deep to the deep fascia with exposure of the flexor tendon and tendon sheath multiple sites right foot along with an excisional debridement was performed -Wound cultures grew Staph aureus, Alpha Strep and Proteus mirabilis -The patient was continued on Unasyn -A re-exploration along with an intraoperative application of negative pressure wound therapy was performed. -A post op baseline ESR was done and came back high to 100 -Aa PICC line was placed and the patient was discharged home on Unasyn to complete a 4 week course of antibiotics. 2. The patient had hyponateremia and hypokalemia at presentation. His Na at discharge was 135 and Potassium was 4.5. 3. He had SHAYLA on admission with creatinine of 1.4. His creatinine was 0.7 at discharge. 4. The patient was found to have gout diagnosed on pathological analysis of soft tissue sample from his foot. He was started on Allopurinol 100mg. His uric acid level was 5.1. Wound Care Addendum: Mr. Jensen is not nutritionaly compromised at this time, off-loading is currently being maintained to the affected extremities with use of positional pillows and non-weight bearing status. Patient has failed alginate, and absorptive dressings. The patient's right plantar foot wound measures 6.5x8.5x0.4cm, with mixed granular base and exposed bone draining moderate serosanguineous discharge. Allergies: Coded Allergies: STATINS (MYALGIAS 08/21/17) melatonin (NIGHTMARES 08/21/17) varenicline (From CHANTIX) (NIGHTMARES 08/21/17) Significant Procedures: 1. Operative/Inv Procedure Report Surgery Date: 06/29/18 Name of Procedure: 1 open incision and drainage deep to the deep fascia with exposure of the flexor tendon and tendon sheath multiple sites right foot 2 intraoperative menstruation Taj block anesthesia 3 excisional debridement Pre-Operative Diagnosis: 1 plantar space abscess right foot 2 diabetic peripheral neuropathy Post-Operative Diagnosis: The same Estimated Blood Loss: less than 50ml Surgeon/Registration Officer: ROHAN PARISH DPM Anesthesia: moderate sedation, block 2. Operative/Inv Procedure Report Surgery Date: 07/02/18 Name of Procedure: 1 open incision and drainage deep to the deep fascia with exposure of the extensor and flexor tendons and tendon sheath multiple sites right foot 2 intraoperative application of negative pressure wound therapy 3 intraoperative administration of ankle block anesthesia 4 excisional debridement Pre-Operative Diagnosis: 1 plantar space abscess right foot 2 septic arthritis right foot Post-Operative Diagnosis: The same Estimated Blood Loss: less than 50ml Surgeon/Registration Officer: ROHAN PARISH DPM Anesthesia: moderate sedation, block Disposition Summary Disposition Principal Diagnosis: Right foot cellulitis Gout Additional Diagnosis: Hyponatremia Hypokalemia SHAYLA Discharge Disposition: home health services Discharge Instructions General Discharge Information Code Status: Do Not Resucitate/Intubat Patient's Diet: Regular diet Patient's Activity: Heel weight bearing, activity as tolerated Follow-Up Instructions/Appts: The patient would follow up with his PCP within 2 weeks of discharge. He would have ESR repeated every week. He was started on Allopurinol 100mg while in the hospital for newly diagnosed gout. The dose could be accordingly adjusted outpatient. Medications at Discharge Discharge Medications: Continue taking these medications: Glyburide/Metformin HCl (Glyburide-Metformin 5-500 MG) 5 MG-500 MG TABLET 1 Tablet ORAL TWICE DAILY Comments: NOT GIVEN IN HOSPITAL Aspirin (Ecotrin*) 81 MG TABLET.DR 1 Tablet ORAL DAILY Comments: NOT GIVEN IN HOSPITAL Amlodipine (Norvasc) 2.5 MG TABLET 1 Tablet ORAL DAILY Comments: Last Taken: 07/08/18 Time: 8:30 AM Olmesartan Medoxomil (Benicar) (Unknown Strength) TABLET Unknown Dose ORAL DAILY Comments: NOT GIVEN IN HOSPITAL Silver Sulfadiazine (Silvadene) 1 % CREAM..G. 1 Application On the skin DAILY Qty = 50 Instructions: apply to affected area(s). Comments: NOT GIVEN IN HOSPITAL. Start taking the following new medications: Allopurinol (Allopurinol) 100 MG TABLET 100 Milligram ORAL DAILY Qty = 30 No Refills Comments: Last Taken: 07/08/18 Time: 8:30 AM Ampicillin Sodium (Ampicillin Sodium) 2 GRAM VIAL 1 VIAL IV Q6H Qty = 80 No Refills Comments: Last Taken: 07/08/18 Time: 1:00 PM Copies To: Missy JOHNSON,Mildred Waite
[2018-07-03 06:46] VITALS: BP 110/60
[2018-07-03 09:05] LABS: ABSOLUTE BASOPHIL COUNT 0 /CUMM (0.0-0.2); ABSOLUTE EOSINOPHIL COUNT 0 /CUMM (0.0-0.7); ABSOLUTE LYMPH COUNT 0.9 /CUMM (1.2-3.4); ABSOLUTE MONOCYTE COUNT 0.5 /CUMM (0.10-0.60); BASOPHIL % 0.1 % (0.0-2.0); EOSINOPHIL % 0.4 % (0-5); GRANULOCYTE % 73.1 % (42.2-75.2); HEMATOCRIT 31.8 % (42-52); MEAN CORPUSCULAR HGB 29.5 PG (27.0-31.0); MEAN CORPUSCULAR HGB CONC 33.7 G/DL (33.0-37.0); MEAN CORPUSCULAR VOLUME 87.8 FL (80.0-94.0); MEAN PLATELET VOLUME 8.5 FL (7.4-10.4); PLATELET COUNT 262 /CUMM (130-400); RBC DISTRIBUTION WIDTH 14.3 % (11.5-14.5); RED BLOOD CELL CT 3.62 /CUMM (4.70-6.10); WHITE BLOOD CELL COUNT 5.4 /CUMM (4.8-10.8)
--- NOTE | 2018-07-03 12:42 | PN- Infect Dx ---
Subjective Subjective: No fever; went to OR for R foot debridement previous day; wound not closed d/t ongoing infection. Review of Systems Comments: 12 points reviewed as noted, otherwise negative. Objective Last 24 Hrs of Vital Signs/I&O Vital Signs Date Time Temp Pulse Resp B/P B/P Pulse O2 O2 Flow FiO2 Mean Ox Delivery Rate 07/03 1014 72 120/70 07/03 0646 99.3 53 20 110/60 97 Room Air 07/02 2130 98.5 68 20 130/64 93 07/02 1704 98.0 62 20 118/64 93 07/02 1331 98.1 62 18 126/74 99 Intake & Output 07/03 1600 07/03 0800 07/03 0000 Intake Total 310 1075 Output Total 700 1500 Balance -700 -1190 1075 Intake, IV 260 Intake, Oral 50 1075 Number 0 Bowel Movements Output, Urine 700 1500 Physical Exam Other Physical Findings: Gen: wake and alert in no acute distress. He is afebrile. Skin reveals no rash. HEENT exam is negative. Neck is supple with no adenopathy. Lungs are clear. Heart regular rhythm with no murmur. Abdomen is soft, nontender with positive bowel sounds. Back no CVA tenderness. Extremities right foot dressing intact; wound vac in place; superficial ulceration on the plantar aspect of his left foot, with SS drainage soaked into the dressing; pulses 2+ and equal. Neuro neuropathy both feet. Results Last 24 Hours of Lab Results: Laboratory Tests 07/03 0732 Chemistry Sodium (137 - 145 mmol/L) 135 L Potassium (3.5 - 5.1 mmol/L) 5.2 H Chloride (98 - 107 mmol/L) 98 Carbon Dioxide (22 - 30 mmol/L) 32 H Anion Gap (5 - 16) 6 BUN (9 - 20 mg/dL) 8 L Creatinine (0.7 - 1.2 mg/dL) 0.7 Estimated GFR (>60 ml/min) > 60 BUN/Creatinine Ratio (7 - 25 %) 11.4 Hematology CBC w Diff NO MAN DIFF REQ WBC (4.8 - 10.8 /CUMM) 5.4 RBC (4.70 - 6.10 /CUMM) 3.62 L Hgb (14.0 - 18.0 G/DL) 10.7 L Hct (42 - 52 %) 31.8 L MCV (80.0 - 94.0 FL) 87.8 MCH (27.0 - 31.0 PG) 29.5 MCHC (33.0 - 37.0 G/DL) 33.7 RDW (11.5 - 14.5 %) 14.3 Plt Count (130 - 400 /CUMM) 262 MPV (7.4 - 10.4 FL) 8.5 Gran % (42.2 - 75.2 %) 73.1 Lymphocytes % (20.5 - 51.1 %) 17.3 L Monocytes % (1.7 - 9.3 %) 9.1 Eosinophils % (0 - 5 %) 0.4 Basophils % (0.0 - 2.0 %) 0.1 Absolute Granulocytes (1.4 - 6.5 /CUMM) 4.0 Absolute Lymphocytes (1.2 - 3.4 /CUMM) 0.9 L Absolute Monocytes (0.10 - 0.60 /CUMM) 0.5 Absolute Eosinophils (0.0 - 0.7 /CUMM) 0 Absolute Basophils (0.0 - 0.2 /CUMM) 0 ESR Westergren (0 - 10 MM) 100 H Last 24 Hours of Luis Miguel Results: SPEC #: [id number] LENY: 07/02/18 STATUS: RES RECD: 07/02/[address]: Saji Carrion DPM [facility] DR: Shalonda JOHNSON,Kyle SPDESC: FOOT R Stacy JOHNSON,Meng Louis MD,Mildred Waite ORDERED: XTRMOR COMMENT: SMALL PIECE OF RIGHT FOOT TISSUE RECEIVED IN CUP Procedure Result > GRAM STAIN Preliminary 07/03/18 WHITE BLOOD CELLS MODERATE GRAM POSITIVE COCCI MODERATE > EXTREMITIES OR SPECIMEN Preliminary 07/03/18 Moderate growth of: STAPH AUREUS ISOLATED NOTE THIS IS A PRELIMINARY REPORT: IF: patient has had significant exposure to a healthcare setting in the past three (3) months, THEN: suspect Methicillin Resistant Staph aureus and place patient on Contact precautions PENDING susceptibility results TO FOLLOW Called to/Readback by WILLIE by [email or web address] – [place] 07/03/[address] Recent Imaging Studies: reviewed Assessment/Plan ID Impression: This is a 67-year-old man with a history of diabetes, treated with 2 course of antibiotics over the past 2 months for cellulitis of the right foot after developing bilateral plantar foot ulcers, admitted on June 28 because of increasing pain, swelling and erythema of the right foot, found to be afebrile with a mild leukocytosis, now status post I&D of the right foot and drainage of a plantar space abscess; most recently 07/02 w/ preliminary wound cx + S. aureus; of note MRI negative for osteomyelitis. His initial OR culture is positive for multiple organisms, including Staph aureus (MSSA) and Proteus, all susceptible to Unasyn. Now POD #1 s/p debridement and wound vac placement. Suggestion: 1. F/U R foot OR cx from 07/02, preliminary cx + S. aureus; if R oxacillin will require tx w/ iv Vancomycin. 2. Continue for now Unasyn 3 gm q 6 h started 06/29 (D #5). Call if fever. 3. Monitor CBC, BMP.
[2018-07-03 13:40] VITALS: BP 122/80
[2018-07-03 21:29] VITALS: BP 118/70
[2018-07-04 07:12] VITALS: BP 114/62
--- NOTE | 2018-07-04 08:54 | PN- Housestaff ---
Guerrero [place] 07/04/18 0853: Subjective Follow-up For: right foot cellulitis Acute kidney injury Subjective: Patient examined at bedside. She is doing good. he is complaining of pain in her right lower extremity. He denies fever, chills, chest pain, palpitation, abdominal pain, diarrhea, constipation, burning micturition. Review of Systems Constitutional: Reports: see HPI. Objective Last 24 Hrs of Vital Signs/I&O Vital Signs Date Time Temp Pulse Resp B/P B/P Pulse O2 O2 Flow FiO2 Mean Ox Delivery Rate 07/04 1411 97.6 85 18 110/58 94 Room Air 07/04 0741 98.6 63 20 114/62 07/04 0712 98.6 63 20 114/62 94 07/03 2129 98.1 60 20 118/70 95 Intake & Output 07/04 1600 07/04 0800 07/04 0000 Intake Total 800 660 700 Output Total 1200 1300 1300 Balance -400 -640 -600 Intake, IV 260 Intake, Oral 800 400 700 Number 0 Bowel Movements Output, Urine 1200 1300 1300 Physical Exam General Appearance: Alert, Oriented X3, Cooperative Cardiovascular: Regular Rate, Normal S1, Normal S2 Lungs: Clear to Auscultation, Normal Air Movement Abdomen: Normal Bowel Sounds, Soft, No Tenderness Assessment/Plan Assessment: 67 year old male with PMH schizoaffective disorder, h/o substance abuse, DM, COPD, renal mass, HTN is admitted to the Gen Med service at the request of Dr. Carrion for admission with R foot infection. Patient was recently hospitalized at [place] 05/19-05/21 for right foot infection; tx with IV abx then discharged with PO abx: Augmentin for 5 days. Patient reports he completed this tx plan and his symptoms improved. He performs daily wound care with Silvadene and xeroform and has a visiting RN on [facility]. He states about 2 weeks ago he noticed his wound getting red and RLE becoming swollen. He reports a pink drainage from wound and no associated pain. He states his glucose at home has been between 130-160. Patient to be admitted to general medicine service for further care of the following: Problem List: *Right lower extremity cellulitis *Hyponatremia *hypokalemia *SHAYLA Plan: -Patient having right lower extremity cellulitis -MRI done which rules out osteomyelitis -There is arthritis changes in the head of the first metatarsal bone that is confusing with osteomyelitis changes however there is no involucrum seen on MRI so we cannot label this osteomyelitis -Podiatric procedure done Notes mentioned 1 open incision and drainage deep to the deep fascia with exposure of the extensor and flexor tendons and tendon sheath multiple sites right foot 2 intraoperative application of negative pressure wound therapy 3 intraoperative administration of ankle block anesthesia 4 excisional debridement -Wound culture isolated staph aureus along with Proteus mirabilis -rule out gout -ID consult appreciated. Would continue Unasyn until further orders -Continue home medication -DVT prophylaxis: Heparin Code status: DNR/DNI Problem List: 1. Cellulitis of right foot 2. Cellulitis 3. Hyperkalemia 4. Leukocytosis 5. Diabetes mellitus 6. Hyperlipidemia 7. Hypertension Pain Ratin Pain Location: Right foot Pain Goal: Remain pain free Pain Plan: Pain management pathway Tomorrow's Labs & Rationales: No labs Justin Johns MD 07/04/18 1802: Attending MD Review Statement Attending Statement Attending MD Statement: examined this patient, discuss w/resident/PA/INFORMATION SYSTEMS SECURITY ANALYST, agreed w/resident/PA/INFORMATION SYSTEMS SECURITY ANALYST, reviewed EMR data (avail), discussed with case mgmt, amended to note Attending Assessment/Plan: The patient was seen and discussed with house staff. ID input appreciated. Currently on Unasyn and will continue as per ID- awaiting final OR identification (staph aureus ID pending). All other isolated are sensitive to Unasyn. Will need PICC line and wound vac. Patient prefers home care when ready for discharge.
[2018-07-04 10:17] LABS: ABSOLUTE BASOPHIL COUNT 0 /CUMM (0.0-0.2); ABSOLUTE EOSINOPHIL COUNT 0.1 /CUMM (0.0-0.7); ABSOLUTE GRANULOCYTE CT 4.7 /CUMM (1.4-6.5); ABSOLUTE LYMPH COUNT 1.3 /CUMM (1.2-3.4); ABSOLUTE MONOCYTE COUNT 0.5 /CUMM (0.10-0.60); BASOPHIL % 0.2 % (0.0-2.0); EOSINOPHIL % 1.8 % (0-5); HEMATOCRIT 31.5 % (42-52); MEAN CORPUSCULAR HGB 29.4 PG (27.0-31.0); MEAN CORPUSCULAR HGB CONC 33.5 G/DL (33.0-37.0); MEAN CORPUSCULAR VOLUME 87.7 FL (80.0-94.0); MEAN PLATELET VOLUME 8.2 FL (7.4-10.4); PLATELET COUNT 278 /CUMM (130-400); RBC DISTRIBUTION WIDTH 14.5 % (11.5-14.5); WHITE BLOOD CELL COUNT 6.7 /CUMM (4.8-10.8)
--- NOTE | 2018-07-04 10:25 | PN- Infect Dx ---
Subjective Subjective: No fever. No new c/o. Review of Systems Comments: 12 points reviewed as noted, otherwise negative. Objective Last 24 Hrs of Vital Signs/I&O Vital Signs Date Time Temp Pulse Resp B/P B/P Pulse O2 O2 Flow FiO2 Mean Ox Delivery Rate 07/04 0741 98.6 63 20 114/62 07/04 0712 98.6 63 20 114/62 94 07/03 2129 98.1 60 20 118/70 95 07/03 1340 97.4 67 20 122/80 96 Room Air Intake & Output 07/04 1600 07/04 0800 07/04 0000 Intake Total 660 700 Output Total 1300 1300 Balance -640 -600 Intake, IV 260 Intake, Oral 400 700 Number 0 Bowel Movements Output, Urine 1300 1300 Physical Exam Other Physical Findings: Gen: No acute distress. He is afebrile. Skin reveals no rash. HEENT AT, sclera anicteric. Neck is supple with no adenopathy. Lungs are clear. Heart regular rhythm with no murmur. Abdomen is soft, nontender with positive bowel sounds. Back no CVA tenderness. Extremities right foot dressing intact; wound vac in place; pulses 2+ and equal. Neuro neuropathy both feet. Neuro: A&O x4, non focal Results Last 24 Hours of Lab Results: Laboratory Tests 07/04 0940 Chemistry Sodium Pending Potassium Pending Chloride Pending Carbon Dioxide Pending Anion Gap Pending BUN Pending Creatinine Pending BUN/Creatinine Ratio Pending Hematology CBC w Diff NO MAN DIFF REQ WBC (4.8 - 10.8 /CUMM) 6.7 RBC (4.70 - 6.10 /CUMM) 3.60 L Hgb (14.0 - 18.0 G/DL) 10.6 L Hct (42 - 52 %) 31.5 L MCV (80.0 - 94.0 FL) 87.7 MCH (27.0 - 31.0 PG) 29.4 MCHC (33.0 - 37.0 G/DL) 33.5 RDW (11.5 - 14.5 %) 14.5 Plt Count (130 - 400 /CUMM) 278 MPV (7.4 - 10.4 FL) 8.2 Gran % (42.2 - 75.2 %) 70.0 Lymphocytes % (20.5 - 51.1 %) 19.9 L Monocytes % (1.7 - 9.3 %) 8.1 Eosinophils % (0 - 5 %) 1.8 Basophils % (0.0 - 2.0 %) 0.2 Absolute Granulocytes (1.4 - 6.5 /CUMM) 4.7 Absolute Lymphocytes (1.2 - 3.4 /CUMM) 1.3 Absolute Monocytes (0.10 - 0.60 /CUMM) 0.5 Absolute Eosinophils (0.0 - 0.7 /CUMM) 0.1 Absolute Basophils (0.0 - 0.2 /CUMM) 0 Last 24 Hours of Luis Miguel Results: EC #: [id number] LENY: 07/02/18 STATUS: RES RECD: 07/02/[address] [facility] [address]: Saji Carrion DPM [facility] DR: Shalonda JOHNSON,Kyle SPDESC: FOOT R Stacy JOHNSON,Meng Louis MD,Mildred Waite ORDERED: XTRMOR COMMENT: SMALL PIECE OF RIGHT FOOT TISSUE RECEIVED IN CUP Procedure Result > GRAM STAIN Preliminary 07/03/18 WHITE BLOOD CELLS MODERATE GRAM POSITIVE COCCI MODERATE > EXTREMITIES OR SPECIMEN Preliminary 07/03/18 Moderate growth of: STAPH AUREUS ISOLATED NOTE THIS IS A PRELIMINARY REPORT: IF: patient has had significant exposure to a healthcare setting in the past three (3) months, THEN: suspect Methicillin Resistant Staph aureus and place patient on Contact precautions PENDING susceptibility results TO FOLLOW Called to/Readback by WILLIE by [email or web address] 07/03/18955 Recent Imaging Studies: reviewed. Assessment/Plan ID Impression: This is a 67-year-old man with a history of diabetes, treated with 2 course of antibiotics over the past 2 months for cellulitis of the right foot after developing bilateral plantar foot ulcers, admitted on June 28 because of increasing pain, swelling and erythema of the right foot, found to be afebrile with a mild leukocytosis, now status post I&D of the right foot and drainage of a plantar space abscess; most recently 07/02 w/ preliminary wound cx + S. aureus; of note MRI negative for osteomyelitis. His initial OR culture is positive for multiple organisms, including Staph aureus (MSSA) and Proteus, all susceptible to Unasyn. Now POD #2 s/p debridement and wound vac placement Suggestion: 1. F/U R foot OR cx from 07/02, preliminary cx + S. aureus; if R oxacillin will require tx w/ iv Vancomycin. Repeat X ray R foot early next week; eval erosive changes; as ESR elevated (100 on 07/03). 2. Continue for now Unasyn 3 gm q 6 h started 06/29 (D #6). Call if fever. 3. Monitor CBC, BMP.
[2018-07-04 14:11] VITALS: BP 110/58
[2018-07-04 22:19] VITALS: BP 132/70
[2018-07-05 06:55] VITALS: BP 100/68
--- NOTE | 2018-07-05 09:43 | PN- Housestaff ---
Guerrero [place] 07/05/18 0942: Subjective Follow-up For: Right lower extremity cellulitis Subjective: Patient seen and examined at bedside. He was complaining mild pain in his foot. He denies fever, chills, chest pain, palpitation, diarrhea, constipation, burning micturition Review of Systems Constitutional: Reports: see HPI. Objective Last 24 Hrs of Vital Signs/I&O Vital Signs Date Time Temp Pulse Resp B/P B/P Pulse O2 O2 Flow FiO2 Mean Ox Delivery Rate 07/05 1452 98.0 68 20 118/70 98 Room Air 07/05 0833 98.0 76 22 100/68 07/05 0655 98.0 76 22 100/68 94 Room Air 07/04 2219 98.4 64 20 132/70 94 Intake & Output 07/05 1600 07/05 0800 07/05 0000 Intake Total 600 361 Output Total 450 1900 1450 Balance -450 -1300 -1089 Intake, IV 200 121 Intake, Oral 400 240 Output, Urine 450 1900 1450 Physical Exam General Appearance: Alert, Oriented X3, Cooperative, No Acute Distress Cardiovascular: Regular Rate, Normal S1, Normal S2 Lungs: Clear to Auscultation, Normal Air Movement Abdomen: Normal Bowel Sounds, Soft, No Tenderness, No Hepatospenomegaly, No Masses Extremities: No Clubbing, No Cyanosis, No Edema Assessment/Plan Assessment: 67 year old male with PMH schizoaffective disorder, h/o substance abuse, DM, COPD, renal mass, HTN is admitted to the Gen Med service at the request of Dr. Carrion for admission with R foot infection. Patient was recently hospitalized at [place] 05/19-05/21 for right foot infection; tx with IV abx then discharged with PO abx: Augmentin for 5 days. Patient reports he completed this tx plan and his symptoms improved. He performs daily wound care with Silvadene and xeroform and has a visiting RN on [facility]. He states about 2 weeks ago he noticed his wound getting red and RLE becoming swollen. He reports a pink drainage from wound and no associated pain. He states his glucose at home has been between 130-160. Patient to be admitted to general medicine service for further care of the following: Problem List: *Right lower extremity cellulitis *Hyponatremia *hypokalemia *SHAYLA Plan: -Patient having right lower extremity cellulitis -MRI done which rules out osteomyelitis -There is arthritis changes in the head of the first metatarsal bone that is confusing with osteomyelitis changes however there is no involucrum seen on MRI so we cannot label this osteomyelitis -Podiatric procedure done Notes mentioned 1 open incision and drainage deep to the deep fascia with exposure of the extensor and flexor tendons and tendon sheath multiple sites right foot 2 intraoperative application of negative pressure wound therapy 3 intraoperative administration of ankle block anesthesia 4 excisional debridement -Wound culture isolated staph aureus along with Proteus mirabilis -rule out gout -ID consult appreciated. Would continue Unasyn until further orders -Continue home medication -DVT prophylaxis: Heparin Code status: DNR/DNI Problem List: 1. Cellulitis 2. Cellulitis of right foot Pain Ratin Pain Location: Right lower external Pain Goal: Remain pain free Pain Plan: Pain management pathway Tomorrow's Labs & Rationales: Justin Ramsay MD 07/05/18 1320: Attending MD Review Statement Attending Statement Attending MD Statement: examined this patient, discuss w/resident/PA/CERTIFIED PROFESSIONAL MIDWIFE, agreed w/resident/PA/CERTIFIED PROFESSIONAL MIDWIFE, discussed with family, reviewed EMR data (avail), amended to note Attending Assessment/Plan: The patient was seen and discussed with house staff. Plan is for OR with Dr. Carrion tomorrow. Will need PICC line and wound vac- patient prefers home care and case management will evaluate.
--- NOTE | 2018-07-05 11:28 | PN- Infect Dx ---
Subjective Subjective: No fever; No diarrhea. Review of Systems Comments: 12 points reviewed as noted, otherwise negative. Objective Last 24 Hrs of Vital Signs/I&O Vital Signs Date Time Temp Pulse Resp B/P B/P Pulse O2 O2 Flow FiO2 Mean Ox Delivery Rate 07/05 0833 98.0 76 22 100/68 07/05 0655 98.0 76 22 100/68 94 Room Air 07/04 2219 98.4 64 20 132/70 94 07/04 1411 97.6 85 18 110/58 94 Room Air Intake & Output 07/05 1600 07/05 0800 07/05 0000 Intake Total 600 361 Output Total 1900 1450 Balance -1300 -1089 Intake, IV 200 121 Intake, Oral 400 240 Output, Urine 1900 1450 Physical Exam Other Physical Findings: Gen: No acute distress. He is afebrile. Skin reveals no rash. HEENT AT, sclera anicteric. Neck is supple with no adenopathy. Lungs are clear. Heart regular rhythm with no murmur. Abdomen is soft, nontender with positive bowel sounds. Back no CVA tenderness. Extremities right foot dressing intact; wound vac in place; pulses 2+ and equal. Neuro neuropathy both feet. Neuro: A&O x4, non focal Results Last 24 Hours of Lab Results: Laboratory Tests 07/05 0600 Chemistry Sodium Cancelled Potassium Cancelled Chloride Cancelled Carbon Dioxide Cancelled Anion Gap Cancelled BUN Cancelled Creatinine Cancelled BUN/Creatinine Ratio Cancelled Hematology CBC w Diff Cancelled WBC Cancelled RBC Cancelled Hgb Cancelled Hct Cancelled MCV Cancelled MCH Cancelled MCHC Cancelled RDW Cancelled Plt Count Cancelled MPV Cancelled Last 24 Hours of Luis Miguel Results: 07/02: Wound cx MSSA and strep viridans Recent Imaging Studies: Reviewed Assessment/Plan ID Impression: This is a 67-year-old man with a history of diabetes, treated with 2 course of antibiotics over the past 2 months for cellulitis of the right foot after developing bilateral plantar foot ulcers, admitted on June 28 because of increasing pain, swelling and erythema of the right foot, found to be afebrile with a mild leukocytosis, now status post I&D of the right foot and drainage of a plantar space abscess; most recently 07/02 w/ preliminary wound cx + S. aureus; of note MRI negative for osteomyelitis. His initial OR culture is positive for multiple organisms, including Staph aureus (MSSA) and Proteus, all susceptible to Unasyn. Now POD #3 s/p debridement and wound vac placement. Elev ESR at 100 suggestive of OM Suggestion: 1. Of note R foot OR cx from 07/02 MSSA and Strep. viridans; continue for now Unasyn 3 gm q 6 h started 06/29 (D #6). 2. X ray r Foot eval bone erosions. 3. Monitor CBC, BMP; ESR weekly.
[2018-07-05 14:52] VITALS: BP 118/70
--- NOTE | 2018-07-05 16:39 | RADIOLOGY REPORT ---
EXAMINATION: XR FOOT, RIGHT CLINICAL INFORMATION: Cellulitis. Pain and redness. COMPARISON: Right foot films dated 06/28/2018, 06/21/2018, 05/19/2018. MRI scan of the right foot dated 06/30/2018. TECHNIQUE: AP, lateral, and oblique views of the right foot. FINDINGS: The patient has undergone interval soft tissue debridement with significant reduction in the previously seen focal soft tissue swelling about the first MTP joint. A wound VAC is in place. Small amount of postsurgical soft tissue emphysema is seen. Plantar subluxation at the first MTP joint is seen, leading to overlap of the bony structures of the first toe, limiting assessment. Irregularity at the first MTP joint is again seen with joint space narrowing, spurring, cystic changes and some sclerotic changes seen. Findings are similar to the previous exam. No ankle joint effusion is seen. There is persistent calcific density seen adjacent to the tip of the medial malleolus, unchanged. IMPRESSION: 1. Postoperative changes status post debridement in the right forefoot. 2. Presumed advanced degenerative changes at the first MTP joint, similar to the previous exam. Recent MRI scan had also included septic joint in the differential for the findings. Close clinical correlation is requested.
[2018-07-05 20:00] VITALS: BP 128/72
[2018-07-06 06:41] VITALS: BP 118/66
--- NOTE | 2018-07-06 07:48 | PN- Housestaff ---
See Addendum Subjective Follow-up For: Right foot cellulitis Subjective: Patient was seen and examined at bedside. He was sitting in the chair and had some paperwork spread on his bed. He states he needs to catch up with some stuff. He says the pain in his foot without the pain medications is about a 7/ 10. It comes down to about 5/10 after pain medications. He denies fever, chills, nausea, vomiting. Review of Systems Constitutional: Reports: see HPI. Objective Last 24 Hrs of Vital Signs/I&O Vital Signs Date Time Temp Pulse Resp B/P B/P Pulse O2 O2 Flow FiO2 Mean Ox Delivery Rate 07/06 0954 86 118/66 07/06 0641 98.5 86 20 118/66 98 07/05 2000 98.9 69 16 128/72 96 07/05 1452 98.0 68 20 118/70 98 Room Air Intake & Output 07/06 1600 07/06 0800 07/06 0000 Intake Total 300 500 Output Total 2850 1450 Balance -2550 -950 Intake, IV 300 Intake, Oral 0 500 Output, Urine 2850 1450 Physical Exam General Appearance: Alert, Oriented X3, Cooperative, No Acute Distress Skin: No Rashes Neck: Supple Cardiovascular: Regular Rate, Normal S1, Normal S2 Lungs: Clear to Auscultation Abdomen: Normal Bowel Sounds, Soft, No Tenderness Extremities: right foot cellulitis covered in dressing. Wound vac in place Assessment/Plan Assessment: 67 year old male with PMH schizoaffective disorder, h/o substance abuse, DM, COPD, renal mass, HTN is admitted to the Gen Med service at the request of Dr. Carrion for admission with R foot cellulitis. Patient was recently hospitalized at [place] 05/19-05/21 for right foot infection; tx with IV abx then discharged with PO abx: Augmentin for 5 days. Patient reports he completed this tx plan and his symptoms improved. He performs daily wound care with Silvadene and xeroform and has a visiting RN on [facility]. Patient to be admitted to general medicine service for further care of the following: Problem List: 1. Cellulitis RLE 2. Chronic wounds RLE and LLE: ?osteomyelitis 3. Hyponatremia 4. Hyperkalemia 5. SHAYLA Plan- -MRI ruled out osteomyelitis and demonstrated soft tissue involvement along with arthritis of the first MTP joint of the right foot. There is a arthritis change in the head of the 1st metatarsal bone, that is confusing with osteomyelitis changes however there is no involucrum seen on MRI. Hence suggesting soft tissue infection, probably cellulitis. -Patient is post op Day 4 the following proceudure: 1 open incision and drainage deep to the deep fascia with exposure of the extensor and flexor tendons and tendon sheath multiple sites right foot 2 intraoperative application of negative pressure wound therapy 3 intraoperative administration of ankle block anesthesia 4 excisional debridement 1.Cellulitis RLE -Wound culture isolated heavy growth of Staph aureus alongwith scant growth of Proteus mirabilis. Repeat wound culture isolated MMSA and Strep viridans. -ID consult appreciated. Patient continues to be on Unasyn until further orders -Post op baseline ESR:100. Could be potentially due to osteomyelitis vs septic arthritis. Would follow ID recommendations for the choice of antibiotics -The patient is due for the OR later today. He is also scheduled for a PICC line placement 2. Hyponatremia Na:133, will continue to follow 3. Hyperkalemia (resolved) K: on 07/04 was 4.2, would repeat BEP in the AM tomorrow 4. SHAYLA(resolved) -Creatine 0.7 at present DVT prophylaxis: Heparin Code status: DNR/DNI Problem List: 1. Diabetic neuropathy 2. Neuropathic diabetic ulcer of foot 3. Cellulitis of right foot Pain Ratin Pain Location: right foot Pain Goal: Pain 4 or less Pain Plan: pathway Tomorrow's Labs & Rationales: cbc and bep
--- NOTE | 2018-07-06 08:14 | PN- Infect Dx ---
Subjective Subjective: No fever. No new c/o. NPO; going to OR today. Review of Systems Comments: 12 points reviewed as noted, otherwise negative. Objective Last 24 Hrs of Vital Signs/I&O Vital Signs Date Time Temp Pulse Resp B/P B/P Pulse O2 O2 Flow FiO2 Mean Ox Delivery Rate 07/06 0641 98.5 86 20 118/66 98 07/05 2000 98.9 69 16 128/72 96 07/05 1452 98.0 68 20 118/70 98 Room Air 07/05 0833 98.0 76 22 100/68 Intake & Output 07/06 1600 07/06 0800 07/06 0000 Intake Total 300 500 Output Total 2850 1450 Balance -2550 -950 Intake, IV 300 Intake, Oral 0 500 Output, Urine 2850 1450 Physical Exam Other Physical Findings: Gen: No acute distress. He is afebrile. Skin reveals no rash. HEENT AT, sclera anicteric. Neck is supple with no adenopathy. Lungs are clear. Heart regular rhythm with no murmur. Abdomen is soft, nontender with positive bowel sounds. Back no CVA tenderness. Extremities right foot dressing intact; wound vac in place; pulses 2+ and equal. Neuro neuropathy both feet. Neuro: A&O x4, non focal Results Last 24 Hours of Lab Results: SPEC #: [id number] LENY: 07/02/18 STATUS: COMP RECD: 07/02/[address]: Saji Carrion DPM SOURCE: EXTREMITIE ENTR: 07/02/[address]: Shalonda JOHNSON,Kyle SPDESC: FOOT R Stacy JOHNSON,Meng Louis MD,Mildred Waite ORDERED: XTRMOR COMMENT: SMALL PIECE OF RIGHT FOOT TISSUE RECEIVED IN CUP Procedure Result > GRAM STAIN Final 07/04/18-152 WHITE BLOOD CELLS FEW GRAM POSITIVE COCCI FEW > EXTREMITIES OR SPECIMEN Final 07/04/18-134 Moderate growth of: STAPH AUREUS Light growth of: ALPHA STREP Called to/Readback by WILLIE by LAB.SVCY 07/03/18 0956 1. STAPH AUREUS RX AB ------ -- CEFAZOLIN S AMOXICILLIN/CLAVULINIC ACID S AMPICILLIN/SULBACTAM S TETRACYCLINE S TRIMETHOPRIM/SULFAMETHOXAZOLE S AZITHROMYCIN S CLINDAMYCIN S ERYTHROMYCIN S OXACILLIN S VANCOMYCIN S Last 24 Hours of Luis Miguel Results: Micro: reviewed Recent Imaging Studies: SERVICE DATE: 07/05/18- EXAM TYPE: RAD - XRY-FOOT COMPLETE, R EXAMINATION: XR FOOT, RIGHT CLINICAL INFORMATION: Cellulitis. Pain and redness. COMPARISON: Right foot films dated 06/28/2018, 06/21/2018, 05/19/2018. MRI scan of the right foot dated 06/30/2018. TECHNIQUE: AP, lateral, and oblique views of the right foot. FINDINGS: The patient has undergone interval soft tissue debridement with significant reduction in the previously seen focal soft tissue swelling about the first MTP joint. A wound VAC is in place. Small amount of postsurgical soft tissue emphysema is seen. Plantar subluxation at the first MTP joint is seen, leading to overlap of the bony structures of the first toe, limiting assessment. Irregularity at the first MTP joint is again seen with joint space narrowing, spurring, cystic changes and some sclerotic changes seen. Findings are similar to the previous exam. No ankle joint effusion is seen. There is persistent calcific density seen adjacent to the tip of the medial malleolus, unchanged. IMPRESSION: 1. Postoperative changes status post debridement in the right forefoot. 2. Presumed advanced degenerative changes at the first MTP joint, similar to the previous exam. Recent MRI scan had also included septic joint in the differential for the findings. Close clinical correlation is requested. DICTATED BY: Syeda JOHNSON,Leda Fuller DATE/TIME DICTATED:07/05/181623 CONSUMER MARKETING ANALYST:SALOMON DATE/TIME TRANSCRIBED:07/05/181623 Assessment/Plan ID Impression: This is a 67-year-old man with a history of diabetes, treated with 2 course of antibiotics over the past 2 months for cellulitis of the right foot after developing bilateral plantar foot ulcers, admitted on June 28 because of increasing pain, swelling and erythema of the right foot, found to be afebrile with a mild leukocytosis, now status post I&D of the right foot and drainage of a plantar space abscess; of note MRI negative for osteomyelitis. His initial OR culture is positive for multiple organisms, including Staph aureus (MSSA) and Proteus, all susceptible to Unasyn. Now POD #4 s/p debridement and wound vac placement. Elev ESR at 100; repeat foot X-ray on 07/05 increased soft tissue swelling around first great toe; no new bone erosions Suggestion: 1. Of note R foot OR cx from 07/02 MSSA and Strep. viridans; continue for now Unasyn 3 gm q 6 h started 06/29 (D #7). Consider interval f/u MRI R foot. 2. F/U podiatry recom 3. Monitor CBC, BMP; ESR weekly.
[2018-07-06] MEDS ORDERED: UNASYN 3 GM VIAL3 GM IV (12:38)
--- NOTE | 2018-07-06 14:23 | RADIOLOGY REPORT ---
EXAMINATION: XR PORTABLE CHEST CLINICAL INFORMATION: Status post PICC line placement. COMPARISON: Multiple prior chest x-rays, most recent of which is dated 06/25/2015. TECHNIQUE: Portable AP semierect view of the chest was obtained. FINDINGS: Right subclavian PICC line is in place with tip extending into the mid SVC. The cardiomediastinal silhouette is within normal limits in size. There is slight asymmetric elevation of the right hemidiaphragm with crowding of bronchovascular markings in the right lung base. No focal consolidation, effusion or pneumothorax is seen. Bony structures are unremarkable. IMPRESSION: 1. Right subclavian PICC line tip in the mid SVC. No pneumothorax. 2. Asymmetric elevation of right hemidiaphragm, similar to prior studies with crowding of bronchovascular markings in the right lung base. 3. No acute cardiopulmonary process.
[2018-07-06 15:21] VITALS: BP 110/60
[2018-07-06 22:59] VITALS: BP 130/74
[2018-07-07 06:43] VITALS: BP 136/78
--- NOTE | 2018-07-07 08:50 | PN- Housestaff ---
See Addendum Subjective Follow-up For: RLE celllulitis Subjective: Patient was seen and examined at bedside. He is waiting for his wound vac to be delivered and for a final quote on his home antibiotics. He does not have any complaints at present. Review of Systems Constitutional: Reports: see HPI. Objective Last 24 Hrs of Vital Signs/I&O Vital Signs Date Time Temp Pulse Resp B/P B/P Pulse O2 O2 Flow FiO2 Mean Ox Delivery Rate 07/07 0836 68 136/78 07/07 0643 97.7 68 20 136/78 96 Room Air 07/07 0000 Room Air 07/06 2259 98.3 73 19 130/74 95 Room Air 07/06 1521 98.2 83 18 110/60 97 Room Air Intake & Output 07/07 1600 07/07 0800 07/07 0000 Intake Total 600 480 Output Total 675 2175 750 Balance -922 -6562 -909 Intake, Oral 600 480 Output, Urine 675 2175 750 Physical Exam General Appearance: Alert, Oriented X3, Cooperative, No Acute Distress Cardiovascular: Regular Rate, Normal S1, Normal S2 Lungs: Clear to Auscultation Abdomen: Normal Bowel Sounds, Soft, No Tenderness Extremities: No Edema, Normal Pulses, right foot bandaged following I&D Assessment/Plan Assessment: 67 year old male with PMH schizoaffective disorder, h/o substance abuse, DM, COPD, renal mass, HTN is admitted to the Gen Med service at the request of Dr. Carrion for admission with R foot cellulitis. Patient was recently hospitalized at [place] 05/19-05/21 for right foot infection; tx with IV abx then discharged with PO abx: Augmentin for 5 days. Patient reports he completed this tx plan and his symptoms improved. He performs daily wound care with Silvadene and xeroform and has a visiting RN on [facility]. Patient to be admitted to general medicine service for further care of the following: Problem List: 1. Cellulitis RLE 2. Chronic wounds RLE and LLE: ?osteomyelitis 3. Hyponatremia 4. Hyperkalemia 5. SHAYLA 6. Gout Plan- -MRI ruled out osteomyelitis and demonstrated soft tissue involvement along with arthritis of the first MTP joint of the right foot. There is a arthritis change in the head of the 1st metatarsal bone, that is confusing with osteomyelitis changes however there is no involucrum seen on MRI. Hence suggesting soft tissue infection, probably cellulitis. -Patient is post op Day 4 the following proceudure: 1 open incision and drainage deep to the deep fascia with exposure of the extensor and flexor tendons and tendon sheath multiple sites right foot 2 intraoperative application of negative pressure wound therapy 3 intraoperative administration of ankle block anesthesia 4 excisional debridement 1.Cellulitis RLE -Wound culture isolated heavy growth of Staph aureus alongwith scant growth of Proteus mirabilis. Repeat wound culture isolated MMSA and Strep viridans. -ID consult appreciated. Patient continues to be on Unasyn until further orders -Post op baseline ESR:100. Could be potentially due to osteomyelitis vs septic arthritis. The patient would be discharged home on Unasyn 2. Hyponatremia Na:133, 3. Hyperkalemia (resolved) K: on 07/04 was 4.2 4. SHAYLA(resolved) -Creatine 0.7 at present 5. Gout -Pathological features consistent with gout -Uric acid level 5.1 -Would start him on Allopurinol 100mg and have him titrate the dose outpatient DVT prophylaxis: Heparin Code status: DNR/DNI Problem List: 1. Cellulitis of right foot 2. Diabetic neuropathy 3. Gout Pain Ratin Pain Location: RLE Pain Goal: Remain pain free Pain Plan: pathway Tomorrow's Labs & Rationales: none
--- NOTE | 2018-07-07 08:50 | PN- Infect Dx ---
Subjective Subjective: R foot mild discomfort. No fever. Review of Systems Comments: 12 points reviewed as noted; otherwise negative Objective Last 24 Hrs of Vital Signs/I&O Vital Signs Date Time Temp Pulse Resp B/P B/P Pulse O2 O2 Flow FiO2 Mean Ox Delivery Rate 07/07 0836 68 136/78 07/07 0643 97.7 68 20 136/78 96 Room Air 07/07 0000 Room Air 07/06 2259 98.3 73 19 130/74 95 Room Air 07/06 1521 98.2 83 18 110/60 97 Room Air 07/06 0954 86 118/66 Intake & Output 07/07 1600 07/07 0800 07/07 0000 Intake Total 600 480 Output Total 300 2175 750 Balance -300 -1575 -270 Intake, Oral 600 480 Output, Urine 300 2175 750 Physical Exam Other Physical Findings: Gen: No acute distress. He is afebrile. Skin reveals no rash. HEENT AT, sclera anicteric. Neck is supple with no adenopathy. Lungs are clear. Heart regular rhythm with no murmur. Abdomen is soft, nontender with positive bowel sounds. Back no CVA tenderness. Extremities right foot dressing intact; wound vac in place; right foot wound 6.5 x 8.5 x 0.4 cm dark red base with exposed bone and tendon present 25% - mod amout serosang drng- periwound sl maceration pulses 2+ and equal. Neuro neuropathy both feet. Neuro: A&O x4, non focal Results Last 24 Hours of Lab Results: reviewed Last 24 Hours of Luis Miguel Results: PEC #: [id number] LENY: 07/02/18 STATUS: COMP RECD: 07/02/[address]: Saji Carrion DPM SOURCE: EXTREMITIE ENTR: 07/02/[address]: Shalonda JOHNSON,Kyle SPDESC: FOOT R Stacy JOHNSON,Meng Louis MD,Mildred Waite ORDERED: XTRMOR COMMENT: SMALL PIECE OF RIGHT FOOT TISSUE RECEIVED IN CUP Procedure Result > GRAM STAIN Final 07/04/18-152 WHITE BLOOD CELLS FEW GRAM POSITIVE COCCI FEW > EXTREMITIES OR SPECIMEN Final 07/04/18-134 Moderate growth of: STAPH AUREUS Light growth of: ALPHA STREP Called to/Readback by WILLIE by LAB.SVCY 07/03/18 0956 1. STAPH AUREUS RX AB ------ -- CEFAZOLIN S AMOXICILLIN/CLAVULINIC ACID S AMPICILLIN/SULBACTAM S TETRACYCLINE S TRIMETHOPRIM/SULFAMETHOXAZOLE S AZITHROMYCIN S CLINDAMYCIN S ERYTHROMYCIN S OXACILLIN S VANCOMYCIN S Recent Imaging Studies: CXR IMPRESSION: 1. Right subclavian PICC line tip in the mid SVC. No pneumothorax. 2. Asymmetric elevation of right hemidiaphragm, similar to prior studies with crowding of bronchovascular markings in the right lung base. 3. No acute cardiopulmonary process. DICTATED BY: Syeda JOHNSON,Leda Fuller DATE/TIME DICTATED:07/06/181416 MACHINIST CLASS B:SALOMON DATE/TIME TRANSCRIBED:07/06/18 Assessment/Plan ID Impression: This is a 67-year-old man with a history of diabetes, treated with 2 course of antibiotics over the past 2 months for cellulitis of the right foot after developing bilateral plantar foot ulcers, admitted on June 28 because of increasing pain, swelling and erythema of the right foot, found to be afebrile with a mild leukocytosis, now status post I&D of the right foot and drainage of a plantar space abscess; of note MRI negative for osteomyelitis. His initial OR culture is positive for multiple organisms, including Staph aureus (MSSA) and Proteus, all susceptible to Unasyn. Now POD #4 s/p debridement and wound vac placement. Elev ESR at 100; repeat foot X-ray on 07/05 increased soft tissue swelling around first great toe; no new bone erosions; path report from 06/29 + acute inflammation consistent with gout Suggestion: 1. Of note R foot OR cx from 07/02 MSSA and Strep. viridans; continue Unasyn 3 gm q 6 h started 06/29 (D #06/29). Consider interval f/u MRI R foot as OP. remove PICC line after completing iv abx 2. F/U podiatry recom 3. Monitor CBC, BMP; ESR weekly. 4. Tx for gout per team
[2018-07-07] MEDS ORDERED: AMPICILLIN SODIU2 G2 IV (12:42)
[2018-07-07 14:58] VITALS: BP 130/72
[2018-07-07 22:29] VITALS: BP 142/70
[2018-07-08 05:42] VITALS: BP 122/76
--- NOTE | 2018-07-08 07:26 | PN- Housestaff ---
Newton Monahan 07/08/18 0726: Subjective Follow-up For: soft tissue infection Subjective: Patient was examined at the bedside today. Said that he is doing well. Ever he is frustrated about not being able to go home yet. Arrangements about the wound VAC were discussed and this is planned with the patient Review of Systems Constitutional: Reports: no symptoms. Objective Last 24 Hrs of Vital Signs/I&O Vital Signs Date Time Temp Pulse Resp B/P B/P Pulse O2 O2 Flow FiO2 Mean Ox Delivery Rate 07/08 0824 98.5 74 20 122/76 07/08 0542 98.5 74 20 122/76 93 Room Air 07/07 2229 98.8 72 18 142/70 94 Room Air Intake & Output 07/08 1600 07/08 0800 07/08 0000 Intake Total 200 Output Total 950 Balance 200 -950 Intake, IV 200 Output, Urine 950 Physical Exam General Appearance: Alert, Oriented X3, Cooperative, No Acute Distress Cardiovascular: Regular Rate, No Murmurs Lungs: Clear to Auscultation, Normal Air Movement Abdomen: Normal Bowel Sounds, Soft, No Tenderness, No Hepatospenomegaly, No Masses Neurological: Normal Speech, Strength at 5/5 X4 Ext, Normal Tone, Sensation Intact Extremities: wound vac is being arranged. Assessment/Plan Assessment: 67 year old male with PMH schizoaffective disorder, h/o substance abuse, DM, COPD, renal mass, HTN is admitted to the Gen Med service at the request of Dr. Carrion for admission with R foot cellulitis. Patient was recently hospitalized at [place] 05/19-05/21 for right foot infection; tx with IV abx then discharged with PO abx: Augmentin for 5 days. Patient reports he completed this tx plan and his symptoms improved. He performs daily wound care with Silvadene and xeroform and has a visiting RN on [facility]. Patient to be admitted to general medicine service for further care of the following: Problem List: 1. Cellulitis RLE 2. Chronic wounds RLE and LLE: ?osteomyelitis 3. Hyponatremia 4. Hyperkalemia 5. SHAYLA 6. Gout Plan- -MRI ruled out osteomyelitis and demonstrated soft tissue involvement along with arthritis of the first MTP joint of the right foot. There is a arthritis change in the head of the 1st metatarsal bone, that is confusing with osteomyelitis changes however there is no involucrum seen on MRI. Hence suggesting soft tissue infection, probably cellulitis. -Patient is post op Day 4 the following proceudure: 1 open incision and drainage deep to the deep fascia with exposure of the extensor and flexor tendons and tendon sheath multiple sites right foot 2 intraoperative application of negative pressure wound therapy 3 intraoperative administration of ankle block anesthesia 4 excisional debridement 1.Cellulitis RLE -Wound culture isolated heavy growth of Staph aureus alongwith scant growth of Proteus mirabilis. Repeat wound culture isolated MMSA and Strep viridans. -ID consult appreciated. As per ID, Continue Unasyn 3 gm q 6 h started 06/29 (D # 07/30). Consider interval f/u MRI R foot as OP and podiatry follow up; if healing well after 2 weeks iv abx, can be considered changing to oral abx; providing good compliance taking Augmentin 1000 mg po bid for another 2 weeks. Remove PICC line after completing iv abx (Ampicillin 2 gm q 6 h). -Post op baseline ESR:100. Could be potentially due to osteomyelitis vs septic arthritis. The patient would be discharged home on Unasyn Follow-up CBCT, ESR , BMP weekly. - patient can be discharged after he gets the wound vac 2. Hyponatremia- resolved 3. Hyperkalemia (resolved) 4. SHAYLA(resolved) 5. Gout -Pathological features consistent with gout -Uric acid level 5.1 -continue Allopurinol 100mg and have him titrate the dose outpatient DVT prophylaxis: Heparin Code status: DNR/DNI Problem List: 1. Cellulitis Pain Ratin Pain Location: rle Pain Goal: Remain pain free Pain Plan: none Tomorrow's Labs & Rationales: none Braydon Mckay 07/08/18 1433: Attending MD Review Statement Attending Statement Attending MD Statement: examined this patient, discuss w/resident/PA/WAFER MACHINE OPERATOR, agreed w/resident/PA/WAFER MACHINE OPERATOR, reviewed EMR data (avail), discussed with nursing, discussed with case mgmt Attending Assessment/Plan: Pt awaiting arrangement for Wound vac prior to dc. Case management working on that. Will dc home once arranged.
[2018-07-08] MEDS ORDERED: ALLOPURINOL100 M1 PO (07:49)
--- NOTE | 2018-07-08 08:01 | PN- Infect Dx ---
Subjective Subjective: No fever; no discomfort R foot. Review of Systems Comments: 12 points reviewed as noted, otherwise negative. Objective Last 24 Hrs of Vital Signs/I&O Vital Signs Date Time Temp Pulse Resp B/P B/P Pulse O2 O2 Flow FiO2 Mean Ox Delivery Rate 07/08 0542 98.5 74 20 122/76 93 Room Air 07/07 2229 98.8 72 18 142/70 94 Room Air 07/07 1458 98.2 78 18 130/72 97 Room Air 07/07 0836 68 136/78 Intake & Output 07/08 0800 07/08 0000 07/07 1600 Intake Total Output Total 950 675 Balance -950 -675 Output, Urine 950 675 Physical Exam Other Physical Findings: Gen: No acute distress. He is afebrile. Skin reveals no rash. HEENT AT, sclera anicteric. Neck is supple with no adenopathy. Lungs are clear. Heart regular rhythm with no murmur. Abdomen is soft, nontender with positive bowel sounds. Back no CVA tenderness. Extremities right foot wound w/ exposed bone/tendon; dressing intact pulses 2+ and equal. Neuro neuropathy both feet. Neuro: A&O x4, non focal Results Last 24 Hours of Lab Results: reviewed Last 24 Hours of [place] Results: reviewed Assessment/Plan ID Impression: This is a 67-year-old man with a history of diabetes, treated with 2 course of antibiotics over the past 2 months for cellulitis of the right foot after developing bilateral plantar foot ulcers, admitted on June 28 because of increasing pain, swelling and erythema of the right foot, found to be afebrile with a mild leukocytosis, now status post I&D of the right foot and drainage of a plantar space abscess; of note MRI negative for osteomyelitis. His initial OR culture is positive for multiple organisms, including Staph aureus (MSSA) and Proteus, all susceptible to Unasyn. Now POD #5 s/p debridement and wound vac placement. Elev ESR at 100; repeat foot X-ray on 07/05 increased soft tissue swelling around first great toe; no new bone erosions; path report from 06/29 + acute inflammation consistent with gout Suggestion: 1. Continue Unasyn 3 gm q 6 h started 06/29 (D #07/30). Consider interval f/u MRI R foot as OP and podiatry follow up; if healing well after 2 weeks iv abx, can be considered changing to oral abx; providing good compliance taking Augmentin 1000 mg po bid for another 2 weeks. Remove PICC line after completing iv abx ( Ampicillin 2 gm q 6 h). 2. Monitor CBC, BMP; ESR weekly. 3. Tx for gout per team
[2018-07-08 15:46] VITALS: BP 130/80
== END 2018-07-08 18:30 | disposition home health service (06) | DRG 264 ==
LOC: ERH 13:30 → PACUH 19:58 → ERHI 19:58 → 2NA 19:58 → ERHI 06-29 08:12 → EDBEDREQ 06-29 11:23 → PACUH 06-29 11:31 → ENRESERV 06-29 15:32 → ENTRNSPT 06-29 16:32 → CMPTRNSPT 06-29 16:44 → 2NA 06-29 16:44 → ENTRNSPT 07-02 16:21 → EDTRNSPT 07-02 16:38 → EDTRNSPTSTS 07-02 16:38 → CMPTRNSPT 07-02 16:53 → 2NA 07-06 07:40 → ENPENDDIS 07-06 14:30 → ENTRNSPT 07-08 17:32 → EDTRNSPTSTS 07-08 17:41 → CMPTRNSPT 07-08 17:56 → 2NA 07-08 18:30
PROVIDERS: Hospitalist; Physical Medicine & Rehabilitation Pain Medicine; Physician Assistant; Student in an Organized Health Care Education/Training Program
PROC: 0JBQ0ZZ Excision of Right Foot Subcutaneous Tissue and Fascia, Open Approach (ICD-10-PCS; principal; 2018-06-29)
PROC: 3E0T3BZ Introduction of Anesthetic Agent into Peripheral Nerves and Plexi, Percutaneous Approach (ICD-10-PCS; 2018-06-29)
PROC: 0JBQ0ZZ Excision of Right Foot Subcutaneous Tissue and Fascia, Open Approach (ICD-10-PCS; 2018-07-02)
PROC: 2W1SX6Z Compression of Right Foot using Pressure Dressing (ICD-10-PCS; 2018-07-02)
PROC: 3E0T3BZ Introduction of Anesthetic Agent into Peripheral Nerves and Plexi, Percutaneous Approach (ICD-10-PCS; 2018-07-02)
PROC: 02HV33Z Insertion of Infusion Device into Superior Vena Cava, Percutaneous Approach (ICD-10-PCS; 2018-07-06)
DX: E11.52 Type 2 diabetes mellitus with diabetic peripheral angiopathy with gangrene (principal); L03.115 Cellulitis of right lower limb; E87.1 Hypo-osmolality and hyponatremia; F11.20 Opioid dependence, uncomplicated; L02.611 Cutaneous abscess of right foot; I96 Gangrene, not elsewhere classified; N17.9 Acute kidney failure, unspecified; E11.621 Type 2 diabetes mellitus with foot ulcer; L97.529 Non-pressure chronic ulcer of other part of left foot with unspecified severity; F25.9 Schizoaffective disorder, unspecified; L97.519 Non-pressure chronic ulcer of other part of right foot with unspecified severity; E87.6 Hypokalemia; E11.42 Type 2 diabetes mellitus with diabetic polyneuropathy; M19.071 Primary osteoarthritis, right ankle and foot; B96.4 Proteus (mirabilis) (morganii) as the cause of diseases classified elsewhere; B95.61 Methicillin susceptible Staphylococcus aureus infection as the cause of diseases classified elsewhere; B95.4 Other streptococcus as the cause of diseases classified elsewhere; J44.9 Chronic obstructive pulmonary disease, unspecified; Z88.8 Allergy status to other drugs, medicaments and biological substances; G47.33 Obstructive sleep apnea (adult) (pediatric); F31.9 Bipolar disorder, unspecified; Z96.651 Presence of right artificial knee joint; Z87.891 Personal history of nicotine dependence; M10.9 Gout, unspecified
CPT/HCPCS: 2NASP; 75657; 84133; 84300; 87070; 87075; ERO; 36415; 36592; 71045; 73630-RT; 81001; 82436; 82570; 87040; 87071; 87147; 88305; 93005; 93010; 96360; 96361; C1769; J0290; J1644; J1815; J2001; J7042